=== PATIENT | female | born 1995 | race Caucasian/White ===

== ENCOUNTER 2020-07-05 17:43 | Emergency (ER) | payer SELFPAY ==
--- NOTE | 2020-07-05 17:47 | W.ED.GENAD ---
Discharge Plan Disposition Patient Disposition: HOME Condition: Stable Discharge Details Chief Complaint: DentalOral Clinical Impression: Pain, dental, Broken tooth, Dental infection Primary Care Provider: None,None ED Provider: Scarlett Lazaro Home Meds and New Rx's Prescriptions: New penicillin V potassium 500 mg tablet 500 mg PO QID 7 Days Qty: 28 RF: 0 tramadol 50 mg tablet 50 mg PO TID PRN (Reason: pain) Qty: 10 RF: 0 Continued Implanon 1 unit SQ RF: 0 Discharge Instructions Instructions: Toothache (ED) Additional Instructions: Drink plenty of fluids and get plenty of rest. Alternate tylenol and motrin as needed and directed for pain. Take tramadol for pain not relieved with Tylenol or Motrin. Take antibiotics until finished. Call a dentist on Wednesday morning to schedule a follow-up appointment for reevaluation. Return to the emergency department if you develop any worsening or new concerning symptoms such as fever, increased pain, swelling. Discharge Data Discharge Date/Time-TO BE ENTERED AT DEPARTURE: 07/05/20 18:20 Discharge Physician: Scarlett Lazaro Medical Decision Making 24-year-old female with history of fracture to tooth #16 presents with left upper dental pain for the past month, worse over the past few days and specifically since last night. Tooth #16 has a hole on buccal wall aspect. There appears to be minimal signs of surrounding inflammation versus infection but no evidence of abscess. She appears nontoxic. There is no drooling, trismus, submandibular swelling. Will treat with penicillin and tramadol as patient appears uncomfortable. Patient was searched through the [place] prescription monitoring program and no recent narcotic prescriptions. Case was also discussed with poison control who stated that patient was well under the toxic dose of 13g as she took approximately 1900 mg today. Toxic effects are not any significant serious concerns and mainly include GI upset, vomiting abdominal pain. No other acute recommendations at this time and patient is cleared for discharge. Patient was advised on the importance of following dosing instructions for Motrin or Aleve and to alternate with Tylenol. She was given dental follow-up list. Usual and customary return precautions given prior to discharge. Medical Records Medical records reviewed: Yes I reviewed the patient's medical records. HPI General Mode of arrival: ambulatory. Date/Time Provider Initiated Documentation: 07/05/20 17:46. Limitations to Documentation: no limitations. Information obtained by: patient. HPI Narrative: Patient is a 24-year-old female who presents to the ED with complaint of left upper tooth pain for the past week, worse since last night. Patient states she broke her left upper wisdom tooth last year and has had intermittent pain but much worse over the past several days and much more significantly worse since last night. She is now having pain radiating from the left mid face up to her TMJ. She denies any known fever. She states she took 9 tabs of 220 mg Aleve within a 9-hour period today. She states she did not do this with any intent to harm but for her pain control. She states she did not think to take any Tylenol. She states 5 days ago she also took 10 tabs of 220 mg Aleve within a 24-hour period and vomited once but denies any abdominal pain or vomiting since then. Related Data Home Medications Medication Instructions Recorded Confirmed Implanon 1 unit SQ 10/11/15 10/11/15 penicillin V potassium 500 mg PO QID 7 Days #28 tab 07/05/20 tramadol 50 mg PO TID PRN #10 tab 07/05/20 Previous Rx's Medication Instructions Recorded penicillin V potassium 500 mg PO QID 7 Days #28 tab 07/05/20 tramadol 50 mg PO TID PRN #10 tab 07/05/20 Allergies Allergy/AdvReac Type Severity Reaction Status Date / Time No Known Allergies Allergy Unverified 07/05/20 17:54 Review of Systems All systems reviewed & are unremarkable except as noted in HPI and below Constitutional Constitutional: Reports as per HPI, Denies chills and Denies fever(s) Eyes Eyes: Denies blurry vision ENT Ears, Nose, Mouth, and Throat: Reports dental pain, Denies dizziness, Denies sore throat and Denies throat swelling Cardiovascular Cardiovascular: Denies chest pain and Denies dyspnea Respiratory Respiratory: Denies cough and Denies dyspnea Gastrointestinal Gastrointestinal: Denies abdominal pain, Denies diarrhea and Denies vomiting Genitourinary Genitourinary: Denies hematuria and Denies dysuria Musculoskeletal Musculoskeletal: Denies back pain and Denies numbness Integumentary/Breasts Skin/Breast: Denies lesions and Denies rash Neurologic Neurologic: Denies dizziness, Denies localized weakness and Denies numbness Allergic/Immunologic Allergic/Immunologic: Denies throat swelling [facility] Medical History (Updated 07/05/20 @ 18:09 by Scarlett Lazaro DO) No acute medical problems (Acute) Surgical History (Updated 07/05/20 @ 18:16 by Scarlett Lazaro DO) No significant past surgical history (Acute) Family History Mother Asthma ? uses inhaler, is a smoker Grandmother , stroke at age 73. No problems noted. Social History Smoking/Tobacco Use Status: Current every day Tobacco Type: cigarettes Alcohol Intake: current Alcohol Intake frequency: a few times a month Drug use: Daily Substance use type: marijuana Do you feel safe at home: Yes Do you feel safe in your relationship?: Yes Exam Const General: cooperative, healthy appearing and no acute distress HENMT Head: normal to inspection Ears: hearing grossly normal bilaterally, external ears normal and TM's normal bilaterally General nose exam: external nose normal Face images: 1. Tenderness to palpation of left side of face. There is minimal surrounding edema but no erythema, crepitus, fluctuance or induration. Mouth: oral mucosae normal Teeth image: 1. #16 Tooth broken on buccal wall aspect. There is minimal surrounding erythema and edema but no fluctuance, drainage or bleeding. There is no tenderness to palpation of this tooth. Throat: posterior oropharynx normal Eyes General: appearance normal, both eyes and all related structures Neck Neck: normal visual inspection, full ROM, no lymphadenopathy, trachea midline and supple Resp Effort & Inspection: normal respiratory effort and able to speak in complete sentences Cardio Rate: regular rate Skin General skin exam: no rashes or lesions noted Neuro General: patient alert, patient awake and patient oriented x3 Motor: muscle tone normal throughout Extrem General: normal to inspection and full ROM Psych Appearance: grossly normal Affect: normal affect
[2020-07-05 17:48] VITALS: BP 145/86; PULSE 89; RESP 15; TEMP 37.2; O2SAT 100
--- NOTE | 2020-07-05 17:56 | NUR.NOTE ---
pt has implanon - states two years overdue for removal
[2020-07-05] MEDS: Penicillin V POTASSIUM 500 MG TAB, 4 TABS/BTL PO (18:15)
[2020-07-05] MEDS: Penicillin V POTASSIUM 500 MG TAB PO (18:16)
== END 2020-07-05 18:20 | disposition home or self-care (01) ==
PROVIDERS: Emergency Provider Physician Assistant
DX: K03.81 Cracked tooth (principal); K08.89 Other specified disorders of teeth and supporting structures; K04.7 Periapical abscess without sinus
CPT/HCPCS: 99283

== ENCOUNTER 2023-09-20 20:46 | Outpatient (CLI) | payer OTHER, SELFPAY ==
[2023-09-20 16:13] LABS: Abs Immature Grans 0.02 10^3/uL (0.0-0.06); Absolute Basophil Count 0.03 10^3/uL (0.0-0.2); Absolute Eosinophil Count 0.08 10^3/uL (0.0-0.7); Absolute Lymphocyte Count 1.99 10^3/uL (1.2-3.4); Absolute Monocyte Count 0.65 10^3/uL (0.1-0.8); Absolute Neutrophil Count 6.04 10^3/uL (1.2-6.7); Basophils % 0.3; Eosinophils % 0.9; HGB 13.8 g/dL (11.2-15.7); Immature Grans % 0.2; Lymphocytes % 22.6; MCH 30.6 pg (27.0-33.0); MCHC 34.5 % (32.0-36.0); MCV 89 fL (80-95); MPV 9.6 fL (8.0-11.0); Monocytes % 7.4; Neutrophils % 68.6; Platelet Count 172 10^3/uL (130-400); RBC 4.51 10^6/uL (3.93-5.22); RDW 12.4 % (11.7-14.6); RDW-SD 40.3 fL; WBC 8.81 10^3/uL (4.4-10.8)
[2023-09-20 16:30] LABS: PTT Activated 26.2 sec (23.6-32.8); Prothrombin Time 9.9 sec (9.1-11.1)
[2023-09-20 17:15] LABS: TSH 1.94 uIU/mL (0.36-3.74)
== END 2023-09-20 20:47 | disposition home or self-care (01) ==
LOC: LBO 20:46
PROVIDERS: Visit Provider Physician Assistant
DX: N93.9 Abnormal uterine and vaginal bleeding, unspecified (principal)
CPT/HCPCS: 36415; 84443; 85025; 85610; 85730

== ENCOUNTER 2023-09-23 12:13 | Outpatient (CLI) | payer OTHER, SELFPAY ==
[2023-09-23 11:57] LABS: HCG Quant, Pregnancy 314 mIU/mL (1-3)
== END 2023-09-23 12:14 | disposition home or self-care (01) ==
LOC: LBO 12:13
PROVIDERS: Visit Provider Obstetrics & Gynecology Gynecology
DX: N93.9 Abnormal uterine and vaginal bleeding, unspecified (principal); Z32.01 Encounter for pregnancy test, result positive
CPT/HCPCS: 36415; 86900; 86901; 84702

== ENCOUNTER 2023-09-28 03:14 | Outpatient (CLI) | payer OTHER, SELFPAY ==
[2023-09-28 12:41] LABS: HCG Quant, Pregnancy 185 mIU/mL (1-3)
== END 2023-09-28 03:15 | disposition home or self-care (01) ==
LOC: LBO 03:15
PROVIDERS: Visit Provider Obstetrics & Gynecology Gynecology
DX: Z32.01 Encounter for pregnancy test, result positive (principal)
CPT/HCPCS: 36415; 84702

== ENCOUNTER 2023-12-31 18:04 | Emergency (ER) | payer OTHER, SELFPAY ==
[2023-12-31 18:29] VITALS: BP 114/76; PULSE 76; RESP 12; TEMP 37.1; O2SAT 98
--- NOTE | 2023-12-31 18:34 | W.ED.GENAD ---
HPI General Date/Time Provider Initiated Documentation: 12/31/23 18:32. HPI Narrative: 28 year-old female presents to ED today by POV/ambulating with her mother with a chief complaint of R upper dental pain with facial swelling with onset yesterday- she was playing with R upper molar with existing dental fracture when she broke it more and is now having increased swelling and pain. Quality described as throbbing, mostly in cheek, no radiation to trismus, severe vocal changes, inability to swallow or manage secretions, shortness of breath. Severity is described as 8/10. Palliating factors include has been taking Tylenol/NSAIDs. Provoking factors include nothing specific. Patient not anticoagulated. Related Data Home Medications Medication Instructions Recorded Confirmed Implanon 1 unit SQ 10/11/15 10/05/23 amoxicillin 875 mg-potassium 1 tab PO BID dental pain 10 days 12/31/23 clavulanate 125 mg tablet #20 tabs lidocaine HCl 2 % mucosal solution 1 applic mucous membrane QID PRN 12/31/23 dental pain #100 mL Previous Rx's Medication Instructions Recorded amoxicillin 875 mg-potassium 1 tab PO BID dental pain 10 days 12/31/23 clavulanate 125 mg tablet #20 tabs lidocaine HCl 2 % mucosal solution 1 applic mucous membrane QID PRN 12/31/23 dental pain #100 mL Allergies Allergy/AdvReac Type Severity Reaction Status Date / Time No Known Allergies Allergy Unverified 09/23/23 10:30 General KARINE: 4 Review of Systems All systems reviewed & are unremarkable except as noted in HPI and below Exam Narrative Exam Narrative: GENERAL APPEARANCE: Well-nourished, non-toxic, awake and alert, atraumatic, no acute distress. SKIN: Warm, pink, dry, intact, without rashes/lesions/ulcerations. HEAD: Normocephalic, atraumatic, normal hair distribution for gender/age. EYES: Pupils PERRLA, EOMs intact without nystagmus, normal conjunctiva, no exudates on lids/lashes. ENT: Nares patent, no circumoral cyanosis, no facial swelling, uvula midline, fractured R upper 3rd molar, no visible gingival abscess, no trismus, has + swelling and mild erythema to R cheek without fluctuance or cervantes erythema, no vocal changes NECK: Supple, trachea midline, painless cervical ROM. LUNGS/CHEST: Non-labored respirations, normal A/P diameter, symmetrical expansion, no chest wall deformity HEART (CV/PV): No peripheral edema, no JVD. ABDOMEN: Soft, non-distended, no guarding. MSK: Normal ROM, no swelling/deformity to bilateral UEs or LEs, moving all extremities without weakness, no cyanosis, spine midline without tenderness, normal curvature. NEURO: Mental Status AAOx4 - alert to person, place, time, events No facial droop, no forehead involvement. Motor: No focal weakness - strength 5/5 in bilateral UEs and LEs, proximal and distal, symmetric. Sensory: sensation intact to light touch globally. Gait normal: patient ambulated without ataxia into ED room. PSYCH: euthymic, cooperative, pleasant, appropriate speech Medical Decision Making This dictation utilizes [id number] dictation software and may contain unedited grammatical errors. 28 y/o F presents to ED today with a chief complaint of R upper dental pain acute on chronic with prior dental fracture, denies fever, endorses cheek swelling, no vocal changes, managing secretions well, no trismus. Patients' medical history: noncontributory. Family and social history: noncontributory. Pertinent exam findings / vital signs include ENT: Nares patent, no circumoral cyanosis, no facial swelling, uvula midline, fractured R upper 3rd molar, no visible gingival abscess, no trismus, has + swelling and mild erythema to R cheek without fluctuance or cervantes erythema, no vocal changes. Differential / pathologies of concern include ENT: Nares patent, no circumoral cyanosis, no facial swelling, uvula midline, fractured R upper 3rd molar, no visible gingival abscess, no trismus, has + swelling and mild erythema to R cheek without fluctuance or cervantes erythema, no vocal changes. Diagnostic studies of: -none. Interventions of: -outpatient Rx Augmentin, pain control here & short supply hydrocodone 4 tab to-go, outpatient viscous lidocaine. ED Course/Assessment/Plan: 28-year-old female had an existing right upper molar dental fracture that she exacerbated and is now having increasing swelling in the cheek especially today, likely in the setting of early dental or gingival or soft tissue infection, started Augmentin here tonight and recommend she use viscous lidocaine by prescription, therapeutic dosing Tylenol and ibuprofen and urgent dental follow-up, stressed return criteria for trismus or severe vocal changes or worsening despite treatment. Findings not consistent with trismus, airway compromise, toxic presentation. Disposition of Pain due to dental trauma. Patient verbalized understanding of the plan and return to ED criteria and engaged in shared decision making. Medical Records Medical records reviewed: Yes I reviewed the patient's medical records. Quality:[facility] Health Related Social Needs: No Data to Display PFSH All Active Problems (Updated 12/31/23 @ 18:35 by JEFFERY Mills) Pain due to dental trauma (Acute) test positive (Acute) Abnormal uterine bleeding (AUB) (Acute) Medical History No acute medical problems Surgical History No significant past surgical history Family History Mother Asthma ? uses inhaler, is a smoker Grandmother , stroke at age 73. No problems noted. Social History Smoking/Tobacco Use Status: Current every day Tobacco Type: cigarettes Smoking risk assessment performed?: Yes Alcohol Intake: current Alcohol Intake frequency: a few times a month Drug use: Daily Substance use type: marijuana Do you feel safe at home: Yes Do you feel safe in your relationship?: Yes Discharge Plan Disposition Patient Disposition: Home Condition: Stable Discharge Details Clinical Impression: Pain due to dental trauma Primary Care Provider: Unknown,Unknown ED Provider: Zoltan Duggan Home Meds and New Rx's Prescriptions: New amoxicillin-pot clavulanate 875-125 mg tablet 1 tab PO BID 10 Days Qty: 20 0RF lidocaine HCl 2 % solution 1 applic mucous membrane QID PRN (Reason: dental pain) Qty: 100 0RF Rx Instructions: swish and spit with 10mL by mouth four times per day as needed Continued Implanon 1 unit SQ Discharge Instructions Instructions: Amoxicillin/Clavulanate Potassium (By mouth), Lidocaine (Into the mouth), Toothache (ED) Additional Instructions: You were seen in the emergency department for your acute dental pain with likely developing soft tissue infection of the gums or cheek. We are starting you on an antibiotic called Augmentin for this, it was sent to [facility] in [place], take as directed, I have also sent a prescription for viscous lidocaine to swish and spit prior to meals to aid in nutrition and hydration as well as before bed. Continue your salt water gargles 3 times per day. I sent you home with 4 tablets of hydrocodone with 325 mg of Tylenol combined in them, use these for the first day for breakthrough pain that regular Tylenol and anti-inflammatories are not covering. Please use therapeutic dosing of Tylenol (acetamenophen) & Advil (ibuprofen) in an alternating fashion as follows: Take 1000mg of Tylenol every 6 hours without missing doses- that is 4 times per day. Fci in between the Tylenol dosings, take 400-600mg of Advil also on a 6 hour schedule, that is also 4 times per day. The daily maximum dosing of Tylenol is 4000mg, and the daily maximum dosing of Advil is 2400mg. This is safe to do for weeks. Please note that some common cold medications & prescription pain medications may contain acetamenophen and you need to read OTC drug labels and factor that in to maximum daily dosings. Please seek urgent dental follow-up, return for any inability to range your jaw, increasing facial swelling despite treatment, fever, inability to swallow, severe vocal changes. Referrals: [facility] [Provider Group] Discharge Data Discharge Date/Time-TO BE ENTERED AT DEPARTURE: 12/31/23 18:57
[2023-12-31 18:37] VITALS: BP 114/76; PULSE 72; RESP 12; O2SAT 99
[2023-12-31] MEDS: Acetaminophen 500 MG TAB 1000 MG PO (18:44)
[2023-12-31] MEDS: Ketorolac 10 MG TAB PO (18:44)
[2023-12-31] MEDS: Amoxicillin 875/Clav. 125 TAB PO (18:45)
[2023-12-31] MEDS: oxyCODONE 5 MG TAB PO (18:46)
[2023-12-31 18:49] VITALS: BP 148/91; PULSE 74; RESP 14; O2SAT 98
== END 2023-12-31 18:57 | disposition home or self-care (01) ==
PROVIDERS: Emergency Provider Physician Assistant
DX: R68.84 Jaw pain (principal); S09.93XA Unspecified injury of face, initial encounter; K03.81 Cracked tooth; I10 Essential (primary) hypertension; W22.8XXA Striking against or struck by other objects, initial encounter
CPT/HCPCS: 99283

== ENCOUNTER 2024-03-06 12:13 | Emergency (ER) | payer OTHER, SELFPAY ==
[2024-03-06] VITALS (43 sets, daily range): BP systolic 82–179; BP diastolic 55–94; PULSE 62–108; RESP 9–29; O2SAT 95–100
[2024-03-06 13:27] LABS: Abs Immature Grans 0.03 10^3/uL (0.0-0.06); Absolute Basophil Count 0.01 10^3/uL (0.0-0.2); Absolute Lymphocyte Count 1.03 10^3/uL (1.2-3.4); Absolute Monocyte Count 0.42 10^3/uL (0.1-0.8); Absolute Neutrophil Count 9.54 10^3/uL (1.2-6.7); Basophils % 0.1; HCT 41.9 % (36.0-46.0); HGB 14.4 g/dL (11.2-15.7); Immature Grans % 0.3; Lymphocytes % 9.3; MCH 30.1 pg (27.0-33.0); MCHC 34.4 % (32.0-36.0); MCV 88 fL (80-95); MPV 9.4 fL (8.0-11.0); Monocytes % 3.8; Neutrophils % 86.5; Platelet Count 227 10^3/uL (130-400); RBC 4.78 10^6/uL (3.93-5.22); RDW 12.6 % (11.7-14.6); RDW-SD 40.7 fL; WBC 11.03 10^3/uL (4.4-10.8)
[2024-03-06] MEDS: diphenhydrAMINE 50 MG/ML VIAL 25 MG IVP (13:32)
[2024-03-06] MEDS: Metoclopramide 10 MG/2 ML VIAL IVP (13:33)
[2024-03-06] MEDS: Lactated Ringers 1,000 ML 1000 ML IV (13:38)
[2024-03-06 13:49] LABS: ALT 24 U/L (14-59); AST 13 U/L (15-37); Albumin 4.1 g/dL (3.4-5.0); Alkaline Phosphatase 65 U/L (46-116); Anion Gap 13.9 mmol/L (3-11); BUN 6 mg/dL (7-18); Bilirubin, Total 0.5 mg/dL (0.2-1.0); CO2 23.1 mmol/L (21.0-32.0); CREATININE 0.8 mg/dL (0.55-1.02); Calcium 9.5 mg/dL (8.5-10.1); Chloride 100 mmol/L (98-107); Estimated GFR 102.22 (mL/min/1.73m2); Glucose 108 mg/dL (74-106); Magnesium 1.6 mg/dL (1.8-2.4); Potassium 3.6 mmol/L (3.5-5.1); Sodium 137 mmol/L (136-145); Total Protein 8.3 g/dL (6.4-8.2)
[2024-03-06 14:26] LABS: Bilirubin Small (Negative); Blood Negative (Negative); Clarity Clear (Clear); Glucose Negative (Negative); Ketones >=160 mg/dL (Negative); Leukocyte Esterase Negative (Negative); Nitrite Negative (Negative); Specific Gravity 1.025 (1.005-1.025)
--- NOTE | 2024-03-06 14:46 | ED.GENADUL_ITS ---
Discharge Plan Disposition Patient Disposition: Home Condition: Stable Discharge Details Clinical Impression: Metabolic acidosis, increased anion gap, Nausea and vomiting during prior to 22 weeks gestation, Hypomagnesemia Primary Care Provider: Unknown,Unknown ED Provider: Law Munoz Home Meds and New Rx's Prescriptions: New PNV #[id number] 30 mg iron-10 mg iron-1 mg capsule 1 cap PO BID Qty: 90 0RF doxylamine-pyridoxine (vit B6) [Diclegis] 10-10 mg tablet,delayed release (DR/EC) 1 tab PO DAILY Qty: 30 0RF Discharge Instructions Instructions: Hyperemesis Gravidarum (ED), Hypomagnesemia (ED) Additional Instructions: Please drink small amounts of clear fluid frequently in order to stay hydrated. Please contact your OB to arrange follow-up. Call today. Return to the ER immediately for any worsening or new concerning symptoms. Referrals: [facility] [Outside] HPI General Mode of arrival: ambulatory . Date/Time Provider Initiated Documentation: 03/06/24 13:13 . Limitations to Documentation: no limitations . Information obtained by: patient . HPI Narrative: 28-year-old female -0-1-0 at unknown dating, last menstrual period 01/24- , here with chief complaint of nausea and vomiting. Patient notes intractable nausea and vomiting for the past 3 days. She not able to tolerate any oral intake. Symptoms are severe. No modifiers. She has not tried any antiemetics. Patient notes recently found out she was and thinks she may be 6 weeks. Patient does have diffuse abdominal discomfort from excessive vomiting. Related Data Home Medications Medication Instructions Recorded Confirmed doxylamine 10 mg-pyridoxine (vit 1 tab PO DAILY #30 tabs 03/06/24 B6) 10 mg tablet,delayed release (Diclegis) vitamin#30 30 mg iron-10 1 cap PO BID #90 caps 03/06/24 mg iron-folic acid 1 mg-omg3 capsule Previous Rx's Medication Instructions Recorded doxylamine 10 mg-pyridoxine (vit 1 tab PO DAILY #30 tabs 03/06/24 B6) 10 mg tablet,delayed release (Diclegis) vitamin#30 30 mg iron-10 1 cap PO BID #90 caps 03/06/24 mg iron-folic acid 1 mg-omg3 capsule Allergies Allergy/AdvReac Type Severity Reaction Status Date / Time No Known Allergies Allergy Unverified 09/23/23 10:30 General Stated Complaint: Nausea/Vomit/Diar KARINE: 3 Review of Systems All systems reviewed & are unremarkable except as noted in HPI and below Constitutional Constitutional: Denies fever(s) Gastrointestinal Gastrointestinal: Reports as per HPI Exam Const General: cooperative and no acute distress HENMT Mouth: mucous membranes dry Eyes Conjunctivae: normal conjunctivae Sclera: normal sclerae Resp Auscultation: clear to auscultation bilaterally, no rales, no rhonchi and no wheezes Cardio Rate: tachycardic Rhythm: regular rhythm GI Palpation: soft, not firm, no guarding, no masses, not rigid and tender (diffuse mild) Skin General skin exam: no rashes or lesions noted Neuro General: patient alert, patient awake and tone normal Extrem General: no edema Course Vital Signs Vital signs: Vital Signs Pulse 104 H 03/06/24 12:30 Respiratory Rate 24 03/06/24 12:30 Blood Pressure 126/75 03/06/24 12:30 Pulse Oximetry 100 03/06/24 12:30 Temperature Source Tympanic 03/06/24 12:30 Pulse 90 03/06/24 13:40 Respiratory Rate 18 03/06/24 13:40 Respiratory Effort Normal, Non-Labored 03/06/24 13:40 Blood Pressure 112/55 L 03/06/24 13:40 Blood Pressure Position Supine 03/06/24 13:40 Pulse Oximetry 99 03/06/24 13:40 Oxygen Delivery Method Room Air 03/06/24 13:40 Oxygen Flow Rate 0 03/06/24 12:30 Pain Level 3 03/06/24 12:30 Lab/Test Results Lab/Test Results: Laboratory Tests Range/Units 03/06/24 03/06/24 13:20 14:15 WBC (4.4-10.8) 10^3/uL 11.03 H RBC (3.93-5.22) 10^6/uL 4.78 Hgb (11.2-15.7) g/dL 14.4 Hct (36.0-46.0) % 41.9 MCV (80-95) fL 88 MCH (27.0-33.0) pg 30.1 MCHC (32.0-36.0) % 34.4 RDW (11.7-14.6) % 12.6 Plt Count (130-400) 10^3/uL 227 MPV (8.0-11.0) fL 9.4 Immature Gran % 0.3 Neutrophils % 86.5 Lymphocytes % 9.3 Monocytes % 3.8 Eosinophils % 0.0 Basophils % 0.1 Nucleated RBC % (0.0-0.3) % 0.0 Absolute Neutrophils (1.2-6.7) 10^3/uL 9.54 H Absolute Lymphocytes (1.2-3.4) 10^3/uL 1.03 L Absolute Monocytes (0.1-0.8) 10^3/uL 0.42 Absolute Eosinophils (0.0-0.7) 10^3/uL 0.00 Absolute Basophils (0.0-0.2) 10^3/uL 0.01 Sodium (136-145) mmol/L 137 Potassium (3.5-5.1) mmol/L 3.6 Chloride (98-107) mmol/L 100 Carbon Dioxide (21.0-32.0) mmol/L 23.1 Anion Gap (3-11) mmol/L 13.9 H BUN (7-18) mg/dL 6 L Creatinine (0.55-1.02) mg/dL 0.8 Est GFR (CKD-EPI 2020) (mL/min/1.73m2) 102.22 Glucose (74-106) mg/dL 108 H Calcium (8.5-10.1) mg/dL 9.5 Magnesium (1.8-2.4) mg/dL 1.6 L Total Bilirubin (0.2-1.0) mg/dL 0.5 AST (15-37) U/L 13 L ALT (14-59) U/L 24 Alkaline Phosphatase (46-116) U/L 65 Total Protein (6.4-8.2) g/dL 8.3 H Albumin (3.4-5.0) g/dL 4.1 Urine Color (Yellow) Yellow Urine Clarity (Clear) Clear Urine pH (5-8) 7.0 Ur Specific [place] (1.005-1.025) 1.025 Urine Protein (Neg-Trace) mg/dL 100 H Urine Ketones (Negative) mg/dL >=160 H Urine Blood (Negative) Negative Urine Nitrite (Negative) Negative Urine Bilirubin (Negative) Small H Urine Urobilinogen (Up to 0.2) mg/dL 1.0 H Ur Leukocyte Esterase (Negative) Negative Urine Glucose (Negative) mg/dL Negative Medical Decision Making 28-year-old -0-1-0 6 weeks by dating, here with intractable nausea and vomiting for the past 3 days. Patient does have diffuse mild abdominal tenderness I suspect secondary to intractable vomiting. Patient is tachycardic and appears dehydrated. I will give IV fluid bolus and IV antiemetic metoclopramide and diphenhydramine. Initial labs reviewed and patient does have mild anion gap acidosis suspect secondary to starvation ketosis. She also has hypomagnesemia. I will give magnesium 1 g IV. 1635 --Patient reassessed: Feeling much improved. Tolerating oral intake. She does have some dyspepsia and request Tums which has helped in the past. Plan for discharge with outpatient follow-up with safety teacher. Usual customary discharge instructions were reviewed. Lab Data Lab results reviewed: Yes I reviewed the patient's lab results. Labs: Laboratory Tests Range/Units 03/06/24 03/06/24 13:20 14:15 WBC (4.4-10.8) 10^3/uL 11.03 H RBC (3.93-5.22) 10^6/uL 4.78 Hgb (11.2-15.7) g/dL 14.4 Hct (36.0-46.0) % 41.9 MCV (80-95) fL 88 MCH (27.0-33.0) pg 30.1 MCHC (32.0-36.0) % 34.4 RDW (11.7-14.6) % 12.6 Plt Count (130-400) 10^3/uL 227 MPV (8.0-11.0) fL 9.4 Immature Gran % 0.3 Neutrophils % 86.5 Lymphocytes % 9.3 Monocytes % 3.8 Eosinophils % 0.0 Basophils % 0.1 Nucleated RBC % (0.0-0.3) % 0.0 Absolute Neutrophils (1.2-6.7) 10^3/uL 9.54 H Absolute Lymphocytes (1.2-3.4) 10^3/uL 1.03 L Absolute Monocytes (0.1-0.8) 10^3/uL 0.42 Absolute Eosinophils (0.0-0.7) 10^3/uL 0.00 Absolute Basophils (0.0-0.2) 10^3/uL 0.01 Sodium (136-145) mmol/L 137 Potassium (3.5-5.1) mmol/L 3.6 Chloride (98-107) mmol/L 100 Carbon Dioxide (21.0-32.0) mmol/L 23.1 Anion Gap (3-11) mmol/L 13.9 H BUN (7-18) mg/dL 6 L Creatinine (0.55-1.02) mg/dL 0.8 Est GFR (CKD-EPI 2020) (mL/min/1.73m2) 102.22 Glucose (74-106) mg/dL 108 H Calcium (8.5-10.1) mg/dL 9.5 Magnesium (1.8-2.4) mg/dL 1.6 L Total Bilirubin (0.2-1.0) mg/dL 0.5 AST (15-37) U/L 13 L ALT (14-59) U/L 24 Alkaline Phosphatase (46-116) U/L 65 Total Protein (6.4-8.2) g/dL 8.3 H Albumin (3.4-5.0) g/dL 4.1 Urine Color (Yellow) Yellow Urine Clarity (Clear) Clear Urine pH (5-8) 7.0 Ur Specific [place] (1.005-1.025) 1.025 Urine Protein (Neg-Trace) mg/dL 100 H Urine Ketones (Negative) mg/dL >=160 H Urine Blood (Negative) Negative Urine Nitrite (Negative) Negative Urine Bilirubin (Negative) Small H Urine Urobilinogen (Up to 0.2) mg/dL 1.0 H Ur Leukocyte Esterase (Negative) Negative Urine RBC (0-2) HPF 0-2 Urine WBC (0-5) HPF 0-2 Ur Epithelial Cells (Negative) HPF Moderate Urine Crystals (Negative) HPF Negative Urine Bacteria (Negative) HPF Rare Urine Casts (Negative) LPF Negative Urine Mucus (Negative) Heavy Urine Other (Negative) Rare Transitional Ur Culture Indicated? No Urine Glucose (Negative) mg/dL Negative Quality:SDOH Health Related Social Needs: No Data to Display PFSH All Active Problems (Updated 03/06/24 @ 16:22 by Law Munoz MD) Hypomagnesemia (Acute) Nausea and vomiting during prior to 22 weeks gestation (Acute) Metabolic acidosis, increased anion gap (Acute) test positive (Acute) Abnormal uterine bleeding (AUB) (Acute) Medical History No acute medical problems Surgical History No significant past surgical history Family History Mother Asthma ? uses inhaler, is a smoker Grandmother , stroke at age 73. No problems noted. Social History Smoking/Tobacco Use Status: Current every day Tobacco Type: cigarettes Smoking risk assessment performed?: Yes Alcohol Intake: current Alcohol Intake frequency: a few times a month Drug use: Daily Substance use type: marijuana Housing: house Do you feel safe at home: Yes Do you feel safe in your relationship?: Yes
[2024-03-06 14:49] LABS: Bacteria Rare HPF (Negative); C & S Indicated? No; Casts Negative LPF (Negative); Crystals Negative HPF (Negative); Epithelial Cells Moderate HPF (Negative); Mucus Heavy (Negative); Other Cells Rare Transitional (Negative); RBC 0-2 HPF (0-2); WBC 0-2 HPF (0-5)
[2024-03-06] MEDS: MAGNESIUM SULFATE 1 GM/100 ML BAG IVINF (14:57)
[2024-03-06] MEDS: DEXTROSE 5%-0.9% SALINE 1,000 ML 150 ML IV (15:47)
[2024-03-06] MEDS: Calcium Carbonate *TUMS* 500 MG CHEW 1000 MG PO (16:34)
== END 2024-03-06 17:21 | disposition home or self-care (01) ==
PROVIDERS: Emergency Provider Student in an Organized Health Care Education/Training Program
DX: O21.1 Hyperemesis gravidarum with metabolic disturbance (principal); O26.891 Other specified pregnancy related conditions, first trimester; R81 Glycosuria; O99.331 Smoking (tobacco) complicating pregnancy, first trimester; F17.290 Nicotine dependence, other tobacco product, uncomplicated
CPT/HCPCS: 80053; 96361; 96365; 96375; 99284; 81003; 81015; 83735; 85025; J1200; J2765; J3475; J7042

== ENCOUNTER 2024-03-07 10:19 | Emergency (ER) | payer OTHER, SELFPAY ==
--- NOTE | 2024-03-07 10:20 | ED.GENADUL_ITS ---
Discharge Plan Disposition Patient Disposition: Home Discharge Details Clinical Impression: Hypomagnesemia, Nausea and vomiting during prior to 22 weeks gestation, Glucosuria, Hypokalemia Primary Care Provider: Unknown,Unknown ED Provider: Jaya Betancur Home Meds and New Rx's Prescriptions: New doxylamine-pyridoxine (vit B6) [Diclegis] 10-10 mg tablet,delayed release (DR/EC) 1 tab PO BID Qty: 14 0RF No Action PNV #[id number] 30 mg iron-10 mg iron-1 mg capsule 1 cap PO BID Qty: 90 0RF doxylamine-pyridoxine (vit B6) [Diclegis] 10-10 mg tablet,delayed release (DR/EC) 1 tab PO DAILY Qty: 30 0RF Discharge Instructions Additional Instructions: You were seen in the emergency department for your nausea and vomiting. A prescription for nausea medicine has been sent to the [facility] and then developed. Please take this as directed. Please return to the emergency department if you cannot eat or drink as result of nausea or vomiting, if you develop any vaginal bleeding, or if you have any other concerns. Otherwise please follow-up with your cardiology clinical nurse specialist next week. Discharge Data Discharge Date/Time-TO BE ENTERED AT DEPARTURE: 03/07/24 13:45 HPI General Date/Time Provider Initiated Documentation: 03/07/24 10:20 . HPI Narrative: MDM This is an uncomfortable mildly tachycardic but normothermic 28-year-old at approximately 6 weeks with nausea and vomiting unable to obtain outpatient antiemetics concerning for hyperemesis gravidarum for which patient will receive labs to assess for any acute electrolyte abnormalities. No pain out of proportion to suggest necrotizing soft tissue infection. I ordered a separate urine culture however the sample was contaminated so it was not run. Given no dysuria no frequency will defer urine culture. No vaginal bleeding to suggest increased risk for ectopic . Transabdominal pelvic ultrasound showed no definitive intrauterine . In the absence of any vaginal bleeding and abdominal pain I did not feel that the patient required an emergent transvaginal ultrasound to assess for intrauterine . Patient does have OB follow-up in [place]. No right lower quadrant tenderness to suggest appendicitis. No right upper quadrant tenderness to suggest acute cholecystitis. No left lower quadrant tenderness nor diarrhea so my suspicion is low for diverticulitis. No rash to abdomen to suggest zoster.Will prescribe doxylamine to [facility] as patient is unable to obtain this from [facility]. 10:52 AM CBC shows leukocytosis but no anemia. No thrombocytopenia. Urinalysis showing persistent ketonuria. Urinalysis glucosuria for which patient will receive D5 NS. 11:07 AM Basic metabolic panel showing anion gap but only mild hyperglycemia and normal bicarbonate??not consistent with DKA. Normal renal function. Mild hypomagnesemia improved compared to prior. 11:15 AM Patient was found to be markedly hypokalemic with a serum potassium of 2.6. Will obtain ECG to assess for QTc prolongation and well provide both oral and IV potassium. 11:52 AM Patient was still feeling nauseous for which I treated her with 25 mg of pyridoxine. QTc was within normal limits on ECG. 1:30 PM Patient tolerated p.o. in the ED. Her tachycardia resolved. Given that she was tolerating p.o. did not feel that she required a repeat basic metabolic panel as she is not at risk for ongoing potassium loss. I wrote her for a course of Diclegis as she was unable to get this from the [facility]. I sent this second prescription to the [facility]. I encouraged her to follow-up with her [employer] provider and return to the emergency department if she cannot eat or drink as result of nausea or vomiting or if she developed any vaginal bleeding. Patient understood her return indications and she was discharged with an empiric trial of expectant outpatient management. Chronic conditions affecting the care of the patient: N/A History obtained from an outside historian: N/A External record review: [facility] EMR [Diagnostic interpretations performed by me: Per my independent interpretation EKG shows: normal sinus rhythm at a rate of 64. Normal axis. Intervals within normal limits. Interventricular conduction delay. No prior for comparison. T wave inversion in V3. ]Medications: Metoclopramide & pyridoxine Social determinants of health affecting disposition: N/A Management discussed with: N/A Treatment/interventions considered: N/A Response to therapies provided: Improved symptoms in the ED HPI This is a 28-year-old G2, P0 at approximately 6 weeks arrived to the emergency department via private vehicle in the setting of nausea and vomiting. Patient reports that the drugstore unfortunately did not have the antiemetics that were prescribed yesterday. Patient reports that she was able to tolerate some popsicles yesterday evening but began vomiting at 830 or 9 yesterday evening. She has been vomiting numerous times subsequently. She is not having abdominal pain. She denies any dysuria frequency. No vaginal bleeding. Exam General: Well-appearing in no acute distress speaking in complete sentences. Head: Normocephalic, atraumatic. Eye: Extraocular eye movements intact. No conjunctival injection. No scleral icterus. Ear, nose, mouth, throat: Grossly normal inspection. Normal voice, handling secretions normally. Neck: Trachea midline. Cardiovascular: Well-perfused distal extremities. Regular rate and rhythm. Respiratory: Nonlabored respiration. Clear lungs bilaterally. Gastrointestinal: Nondistended abdomen. Soft. Nontender. Musculoskeletal: No edema. Moving all 4 extremities spontaneously. Skin: Normal for age and race, grossly normal temperature and turgor. No acute rash. Neurologic: Alert and appropriate, no apparent acute deficits. Psychiatric: Mood and manner are appropriate. Grooming and personal hygiene are appropriate. Related Data Home Medications Medication Instructions Recorded Confirmed doxylamine 10 mg-pyridoxine (vit 1 tab PO DAILY #30 tabs 03/06/24 03/07/24 B6) 10 mg tablet,delayed release (Diclegis) vitamin#30 30 mg iron-10 1 cap PO BID #90 caps 03/06/24 03/07/24 mg iron-folic acid 1 mg-omg3 capsule doxylamine 10 mg-pyridoxine (vit 1 tab PO BID #14 tabs 03/07/24 B6) 10 mg tablet,delayed release (Diclegis) Previous Rx's Medication Instructions Recorded doxylamine 10 mg-pyridoxine (vit 1 tab PO DAILY #30 tabs 03/06/24 B6) 10 mg tablet,delayed release (Diclegis) vitamin#30 30 mg iron-10 1 cap PO BID #90 caps 03/06/24 mg iron-folic acid 1 mg-omg3 capsule doxylamine 10 mg-pyridoxine (vit 1 tab PO BID #14 tabs 03/07/24 B6) 10 mg tablet,delayed release (Diclegis) Allergies Allergy/AdvReac Type Severity Reaction Status Date / Time No Known Allergies Allergy Unverified 03/07/24 11:33 General KARINE: 3 Medical Decision Making Quality:SDOH Health Related Social Needs: No Data to Display PFSH All Active Problems (Updated 03/07/24 @ 11:16 by Jaya Betancur MD) Hypokalemia (Acute) Glucosuria (Acute) Hypomagnesemia (Acute) Nausea and vomiting during prior to 22 weeks gestation (Acute) Metabolic acidosis, increased anion gap (Acute) test positive (Acute) Abnormal uterine bleeding (AUB) (Acute) Medical History No acute medical problems Surgical History No significant past surgical history Family History Mother Asthma ? uses inhaler, is a smoker Grandmother , stroke at age 73. No problems noted. Social History Smoking/Tobacco Use Status: Current every day Tobacco Type: cigarettes Smoking risk assessment performed?: Yes Alcohol Intake: current Alcohol Intake frequency: a few times a month Drug use: Daily Substance use type: marijuana Housing: house Do you feel safe at home: Yes Do you feel safe in your relationship?: Yes POCUS Exam (ED) Limited OB Exam DATE OF EXAM:: 03/07/24 TIME OF EXAM:: 10:56 PROVIDER THAT PERFORMED THE STUDY: Jaya Betancur IS THIS A REPEAT EXAM DURING THIS ENCOUNTER: No Type of Exam: Pelvic OB Trans Abdominal REASON FOR EXAM: other indication: First trimester Exam Complete. DIFFERENTAL DIAGNOSES: No definitive intrauterine
[2024-03-07 10:21] VITALS: BP 162/81; PULSE 103; RESP 26; TEMP 36.9; O2SAT 100
[2024-03-07] MEDS: Normal Saline 1,000 ML 1000 ML IV (10:36)
[2024-03-07] MEDS: Metoclopramide 10 MG/2 ML VIAL IVP (10:42)
[2024-03-07 10:43] LABS: Bilirubin Small (Negative); Blood Negative (Negative); Clarity Sl Cloudy (Clear); Glucose 100 mg/dL (Negative); Ketones >=160 mg/dL (Negative); Leukocyte Esterase Negative (Negative); Nitrite Negative (Negative); Specific Gravity 1.015 (1.005-1.025); pH 8.5 (5-8)
[2024-03-07 10:44] LABS: Abs Immature Grans 0.05 10^3/uL (0.0-0.06); Absolute Basophil Count 0.02 10^3/uL (0.0-0.2); Absolute Eosinophil Count 0.01 10^3/uL (0.0-0.7); Absolute Monocyte Count 0.75 10^3/uL (0.1-0.8); Basophils % 0.2; Eosinophils % 0.1; HCT 41.9 % (36.0-46.0); HGB 14.8 g/dL (11.2-15.7); Immature Grans % 0.4; Lymphocytes % 9.9; MCH 30.1 pg (27.0-33.0); MCHC 35.3 % (32.0-36.0); MCV 85 fL (80-95); MPV 9.6 fL (8.0-11.0); Monocytes % 6.1; Neutrophils % 83.3; Platelet Count 250 10^3/uL (130-400); RBC 4.92 10^6/uL (3.93-5.22); RDW 12.9 % (11.7-14.6); RDW-SD 39.8 fL; WBC 12.37 10^3/uL (4.4-10.8)
[2024-03-07 10:45] LABS: Absolute Lymphocyte Count 1.22 10^3/uL (1.2-3.4)
[2024-03-07 10:56] LABS: Bacteria Rare HPF (Negative); C & S Indicated? No/Sq. Contamination; Casts 0-2 Hyaline LPF (Negative); Crystals Negative HPF (Negative); Epithelial Cells Moderate HPF (Negative); Mucus Moderate (Negative); RBC Negative HPF (0-2); WBC Negative HPF (0-5)
--- NOTE | 2024-03-07 11:00 | RT.EKG_ITS ---
APPROVED REPORT Exam: Resting ECG Reason for Exam: Hypokalemia Patient Location: E HR:64 bpm ECG Measurements Heart Rate 64 AXIS [place] 153 P 3 QRSd 109 QRS 74 QT 400 T 23 QTc 413 Conclusion Sinus rhythm...normal P axis, V-rate 60- 99 Nonspecific T abnormalities, anterior leads...T <-0.10mV, V2-V4 normal sinus rhythm at a rate of 64. Normal axis. Intervals within normal limits. Interventricular conduction delay. No prior for comparison. T wave inversion in V3.
[2024-03-07 11:02] LABS: Anion Gap 16.2 mmol/L (3-11); BUN 6 mg/dL (7-18); CO2 21.8 mmol/L (21.0-32.0); CREATININE 0.7 mg/dL (0.55-1.02); Calcium 9.3 mg/dL (8.5-10.1); Chloride 99 mmol/L (98-107); Estimated GFR 119.99 (mL/min/1.73m2); Glucose 112 mg/dL (74-106); Magnesium 1.7 mg/dL (1.8-2.4); Sodium 137 mmol/L (136-145)
[2024-03-07] MEDS: DEXTROSE 5%-0.9% SALINE 1,000 ML 1000 ML IV (11:04)
[2024-03-07 11:15] LABS: Potassium 2.6 mmol/L (3.5-5.1)
[2024-03-07] MEDS: MAGNESIUM SULFATE 2 GM/50 ML BAG IVPB (11:28)
[2024-03-07] MEDS: POTASSIUM CHLORIDE 20 MEQ/100 ML BAG 50 MEQ IVPB (11:29)
[2024-03-07 11:42] VITALS: PULSE 87; RESP 20
[2024-03-07 13:14] VITALS: BP 119/77; PULSE 77; RESP 16; O2SAT 98
[2024-03-07] MEDS: Potassium Chloride 20 MEQ TABCR 40 MEQ PO (13:38)
== END 2024-03-07 13:45 | disposition home or self-care (01) ==
PROVIDERS: Emergency Provider Emergency Medicine
DX: O26.891 Other specified pregnancy related conditions, first trimester (principal); E83.42 Hypomagnesemia; R81 Glycosuria; E87.6 Hypokalemia
CPT/HCPCS: 76815; 80048; 93005; 96361; 96365; 96366; 96368; 96375; 99284; 81003; 81015; 83735; 85025; 87086; 93010; J2765; J3475; J3480; J7042

== ENCOUNTER 2024-03-08 02:08 | Observation (INO) | payer OTHER, SELFPAY ==
[2024-03-08] VITALS (26 sets, daily range): BP systolic 120–158; BP diastolic 62–88; PULSE 60–85; RESP 16–20; TEMP 36.4–37.2; O2SAT 97–100
--- NOTE | 2024-03-08 02:37 | ED.GENADUL_ITS ---
Discharge Plan Disposition Patient Disposition: Admit to [facility] Condition: Fair Discharge Details Chief Complaint: Nausea/Vomit/Diar Clinical Impression: Nausea and vomiting during prior to 22 weeks gestation, Hypokalemia Primary Care Provider: Unknown,Unknown ED Provider: Noble Roberts Home Meds and New Rx's Prescriptions: No Action doxylamine-pyridoxine (vit B6) [Diclegis] 10-10 mg tablet,delayed release (DR/EC) 1 tab PO BID Qty: 14 0RF PNV #[id number] acid-[id number] 30 mg iron-10 mg iron-1 mg capsule 1 cap PO BID Qty: 90 0RF doxylamine-pyridoxine (vit B6) [Diclegis] 10-10 mg tablet,delayed release (DR/EC) 1 tab PO DAILY Qty: 30 0RF HPI General Date/Time Provider Initiated Documentation: 03/08/24 02:13 . HPI Narrative: The patient is a 28-year-old female, Ab1, presents to the emergency department this morning for her third visit in 48 hours with complaints of nausea, vomiting, and inability to tolerate and hold down liquids. The patient is approximately 6 weeks and was found to be hypokalemic and hypomagnesemic earlier today, in addition to having some dehydration. The patient was prescribed Diclegis twice, with prescription sent to 2 different pharmacies, and the patient was never able to obtain this medication as neither pharmacy had it in stock and the second pharmacy had to order it. The patient reports that she has been vomiting more than 20 times a day and could not sleep with the vomiting. She has some mild abdominal discomfort, which she feels is muscular and related to the recurrent vomiting. The patient denies any vaginal bleeding or any vaginal discharge. The patient denies any associated diarrhea. 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 She was hoping to initially follow-up with the [facility], but thinks now that perhaps she would follow-up locally with obstetrics in the [facility]. Related Data Home Medications Medication Instructions Recorded Confirmed doxylamine 10 mg-pyridoxine (vit 1 tab PO DAILY #30 tabs 03/06/24 03/08/24 B6) 10 mg tablet,delayed release (Diclegis) vitamin#30 30 mg iron-10 1 cap PO BID #90 caps 03/06/24 03/08/24 mg iron-folic acid 1 mg-omg3 capsule doxylamine 10 mg-pyridoxine (vit 1 tab PO BID #14 tabs 03/07/24 03/08/24 B6) 10 mg tablet,delayed release (Diclegis) Previous Rx's Medication Instructions Recorded doxylamine 10 mg-pyridoxine (vit 1 tab PO DAILY #30 tabs 03/06/24 B6) 10 mg tablet,delayed release (Diclegis) vitamin#30 30 mg iron-10 1 cap PO BID #90 caps 03/06/24 mg iron-folic acid 1 mg-omg3 capsule doxylamine 10 mg-pyridoxine (vit 1 tab PO BID #14 tabs 03/07/24 B6) 10 mg tablet,delayed release (Diclegis) Allergies Allergy/AdvReac Type Severity Reaction Status Date / Time No Known Allergies Allergy Unverified 03/08/24 02:17 General Stated Complaint: Nausea/Vomit/Diar KARINE: 4 Exam Const General: cooperative, healthy appearing and no acute distress Resp Effort & Inspection: normal respiratory effort and able to speak in complete sentences Auscultation: clear to auscultation bilaterally Cardio Rate: regular rate Rhythm: regular rhythm Heart Sounds: S1 normal and S2 normal GI Palpation: soft and nontender Auscultation: hypoactive bowel sounds Skin Other: [place], warm, dry Neuro Other: There are no focal motor or sensory deficits reported or observed. The observed components of cranial nerves II through XII are normal. Extrem Other: There is no cyanosis, clubbing, or edema present. There are normal distal pulses bilaterally. Course Vital Signs Vital signs: Vital Signs Temperature 36.4 C L 03/08/24 02:11 Pulse 85 03/08/24 02:11 Respiratory Rate 16 03/08/24 02:11 Blood Pressure 158/81 H 03/08/24 02:11 Pulse Oximetry 98 03/08/24 02:11 Temperature 36.4 C L 03/08/24 02:11 Temperature Source Tympanic 03/08/24 02:11 Pulse 85 03/08/24 02:11 Respiratory Rate 16 03/08/24 02:11 Blood Pressure 158/81 H 03/08/24 02:11 Blood Pressure Position Supine 03/08/24 02:11 Pulse Oximetry 98 03/08/24 02:11 Oxygen Delivery Method Room Air 03/08/24 02:11 Oxygen Flow Rate 0 03/08/24 02:11 Pain Level 3 03/08/24 02:11 Medical Decision Making The patient was seen and examined. This likely continues to represent nausea and vomiting of . The patient's quantitative beta-hCG from earlier today was relatively low, which would seem to be somewhat incongruence with hyperemesis gravidarum. However, the patient certainly has ongoing nausea, vomiting, and likely some modest dehydration. The patient had some modest electrolyte abnormalities earlier today and will have a repeat set of electrolytes obtained here tonight for screening. The patient will be given some additional IV potassium replacement and some IV fluid boluses. The patient was given IV metoclopramide and acetaminophen for relief of her symptoms here in the emergency room. Depending on her emergency room course and the repeat electrolytes, the patient can potentially be discharged with a different antiemetic medication or be admitted if she is unable to tolerate oral liquids. I can discuss the case with obstetrics, once the data has been obtained and additional observation has been completed in the emergency room. 0650 - Despite multiple amounts of medication here in the emergency room, the patient has continued to have persistent intermittent vomiting. I discussed the case with Dr. Spence from obstetrics who will come and evaluate the patient for consideration of admission for ongoing hydration and control of her nausea. The patient was given IV Reglan, IV Zofran, IV Protonix, and now IV Benadryl for help in ameliorating her symptoms. She was initially given some calcium carbonate as well to help improve her heartburn-like symptoms. She was repleted here in the emergency room with 40 mill equivalents of IV potassium. Quality:SDOH Health Related Social Needs: No Data to Display [facility] All Active Problems (Updated 03/08/24 @ 07:12 by Noble Roberts MD) Hypokalemia (Acute) Glucosuria (Acute) Hypomagnesemia (Acute) Nausea and vomiting during prior to 22 weeks gestation (Acute) Metabolic acidosis, increased anion gap (Acute) test positive (Acute) Abnormal uterine bleeding (AUB) (Acute) Medical History No acute medical problems Surgical History No significant past surgical history Family History Mother Asthma ? uses inhaler, is a smoker Grandmother , stroke at age 73. No problems noted. Social History Smoking/Tobacco Use Status: Current every day Tobacco Type: cigarettes Smoking risk assessment performed?: Yes Alcohol Intake: current Alcohol Intake frequency: a few times a month Drug use: Daily Substance use type: marijuana Housing: house Do you feel safe at home: Yes Do you feel safe in your relationship?: Yes
[2024-03-08 02:38] LABS: BUN 4 mg/dL (7-18); CREATININE 0.6 mg/dL (0.55-1.02); Chloride 100 mmol/L (98-107); Estimated GFR 124.53 (mL/min/1.73m2); Glucose 112 mg/dL (74-106); Magnesium 1.8 mg/dL (1.8-2.4); Sodium 134 mmol/L (136-145)
[2024-03-08] MEDS: ACETAMINOPHEN 1,000 MG/100 ML BTL 400 MG IVPB (02:39)
[2024-03-08] MEDS: POTASSIUM CHLORIDE/D5-0.45NACL 1,000 ML 250 MEQ IV (02:40)
[2024-03-08] MEDS: Normal Saline 50 ML 200 ML (02:40)
[2024-03-08] MEDS: Metoclopramide 10 MG/2 ML VIAL IVP ×3 (02:40→14:11)
[2024-03-08] MEDS: Normal Saline 1,000 ML 1000 ML IV (03:00)
[2024-03-08 03:21] LABS: HCG Quant, Pregnancy 40025 mIU/mL (1-3)
[2024-03-08] MEDS: Ondansetron 4 MG/2 ML VIAL IVP ×3 (05:07→16:31)
[2024-03-08] MEDS: Calcium Carbonate *TUMS* 500 MG CHEW PO (06:13)
[2024-03-08] MEDS: diphenhydrAMINE 50 MG/ML VIAL 25 MG IVP (06:30)
[2024-03-08] MEDS: Pantoprazole 40 MG VIAL IVP (06:30)
--- NOTE | 2024-03-08 07:48 | OBCE_ITS ---
Date of service: 03/08/24 Time of Service: 17:07 History of Present Illness Narrative: Patient is a 28-year-old female, Ab1, with LMP 01/24/24 currently 6w EGAwho presented to the emergency department for her third visit in 48 hours with complaints of nausea, vomiting, and inability to tolerate and hold down liquids. The patient is approximately 5w2d weeks and was found to be hypokalemic and hypomagnesemic earlier today, in addition to having some dehydration. She received Potassium replacement and Reglan yesterday and then a dose of Ondansetron IV while in the ED. Pt continues nauseated. I recommended observation, additional antiemetics, PPI and continued IV hydration. Consults Consult date: 03/08/24 Requesting physician: Cami Spence Review of Systems Constitutional Constitutional: Reports fatigue and Reports poor appetite (unable to tolerate any POs) Cardiovascular Cardiovascular: Denies chest pain and Denies irregular heart rhythm Respiratory Respiratory: Reports system reviewed and no additional complaints, except as documented Gastrointestinal Gastrointestinal: Reports cramping, Reports heartburn, Reports nausea and Reports vomiting Genitourinary Genitourinary: Denies abnormal vaginal bleeding and Reports amenorrhea Comments: + home UPT Musculoskeletal Musculoskeletal: Reports system reviewed and no additional complaints, except as documented Integumentary/Breasts Skin/Breast: Reports system reviewed and no additional complaints, except as documented Neurologic Neurologic: Reports system reviewed and no additional complaints, except as documented Psychiatric Psychiatric: Reports abnormal sleep pattern and Reports anxiety Endocrine Endocrine: Reports fatigue PFSH All Active Problems (Updated 03/08/24 @ 07:12 by Noble Roberts MD) Hypokalemia (Acute) Glucosuria (Acute) Hypomagnesemia (Acute) Nausea and vomiting during prior to 22 weeks gestation (Acute) Metabolic acidosis, increased anion gap (Acute) test positive (Acute) Abnormal uterine bleeding (AUB) (Acute) Medical History No acute medical problems Surgical History No significant past surgical history Family History Mother Asthma ? uses inhaler, is a smoker Grandmother , stroke at age 73. No problems noted. Social History Smoking/Tobacco Use Status: Current every day Tobacco Type: cigarettes Smoking risk assessment performed?: Yes Alcohol Intake: current Alcohol Intake frequency: a few times a month Drug use: Daily Substance use type: marijuana Housing: house Do you feel safe at home: Yes Do you feel safe in your relationship?: Yes Female Reproductive History Menstrual Date of last menstrual period: 01/24/24 History History 2 2 Para Hx # Term Pregnancies 0 Multiple births Hx # Pregnancies Ectopic pregnancies AB induced Hx Number of Living Children 1 AB spontaneous 1 Exam Narrative Exam Narrative: Lying in bed, semi-fowlers. Pt has received IV ondansetron, Compazine, Reglan and Protonix during the day. Her nausea recurred when she was due for her next dose of Ondansetron. She has been taking limited POs today. She was given an 20meq Potassium IV earlier today. Const General: no acute distress Nutritional Appearance: average body habitus Orientation: alert, awake and oriented x3 Neck Neck: anterior neck swelling Resp Effort & Inspection: normal respiratory effort Auscultation: clear to auscultation bilaterally Cardio Rate: regular rate Rhythm: regular rhythm GI Inspection: non-distended Palpation: soft, no hepatosplenomegaly, no masses and nontender Rectal Exam - female: deferred General: deferred Back/Spine/Pelvis Back: no CVA tenderness Skin General skin exam: no rashes or lesions noted Neuro Speech: speech normal Gait: normal gait Motor: muscle tone normal throughout Extrem General: normal to inspection Psych Appearance: grossly normal Mental Status: mental status grossly normal Speech and Movement: speech and movement normal Mood: congruent mood Results Last Vital Signs Temp 97.5 F L 03/08/24 05:57 Pulse 67 03/08/24 06:32 Resp 20 03/08/24 06:32 BP 122/64 03/08/24 06:32 Pulse Ox 100 03/08/24 06:32 Labs 03/08/24 02:22 Labs: Laboratory Results - last 24 hr 03/08/24 02:22 Sodium 134 L Potassium 3.0 L Chloride 100 Carbon Dioxide 22.0 Anion Gap 12.0 H BUN 4 L Creatinine 0.6 Est GFR (CKD-EPI 2020) 124.53 Glucose 112 H Calcium 9.0 Magnesium 1.8 Beta HCG, Quant 59817 H
--- NOTE | 2024-03-08 08:41 | NUR.NOTE ---
Went to check on Pt. Both Pt and significant other are sleeping comfortably.Nursing Note:
[2024-03-08] MEDS: Lactated Ringers 1,000 ML 150 ML IV (10:05)
[2024-03-08] MEDS: Normal Saline Flush 10 ML SYR IVP ×3 (10:05→13:15)
[2024-03-08] MEDS: POTASSIUM CHLORIDE/0.9% NACL 1,000 ML 100 MEQ IV (13:14)
[2024-03-08] MEDS: Promethazine 25 MG SUPP PR (13:40)
--- NOTE | 2024-03-08 18:01 | W.PM.DS.N ---
Date of service: 03/08/24 Time of Service: 18:01 DS: Diagnosis Discharge Diagnosis (1) Hypokalemia: Status: Acute (2) Nausea and vomiting during prior to 22 weeks gestation: Status: Acute (3) test positive: Status: Acute Discharge Plan Disposition Patient Disposition: Home Condition: Fair Condition: Improving Discharge Details Reason For Visit: Hyperemesis 5w5d EGA Admit Date/Time: 03/08/24 07:38 Admit Provider: Cami Spence Attending Provider: Cami Spence Primary Care Provider: Unknown,Unknown Hospital Course Hospital Course: Patient admitted the morning of 03/08/2024 with recurrent nausea vomiting at approximately 5W5D EGA. She required potassium replacement and Reglan, ondansetron and Phenergan suppositories before she could tolerate any liquids. She also was given a prescription for diplegia's that she was able to fill today. Plan is to have [facility]2024 to assess nausea or vomiting. Pelvic ultrasound was deferred at this time secondary to the patient's early gestational age. Home Meds and New Rx's Prescriptions: No Action ondansetron HCl 4 mg tablet 4 mg PO Q6H PRN (Reason: nausea and vomiting) Qty: 60 4RF doxylamine-pyridoxine (vit B6) [Diclegis] 10-10 mg tablet,delayed release (DR/EC) 1 tab PO BID Qty: 14 0RF PNV #[id number] acid-[id number] 30 mg iron-10 mg iron-1 mg capsule 1 cap PO BID Qty: 90 0RF doxylamine-pyridoxine (vit B6) [Diclegis] 10-10 mg tablet,delayed release (DR/EC) 1 tab PO DAILY Qty: 30 0RF Discharge Instructions Additional Instructions: Call [phone] on 03/09/2023 to make an appointment to be followed at the [facility] on 03/10/2024. I would avoid solid foods at this time but instead take liquids or popsicles. You have a prescription for the ondansetron 4 mg take that every 6 hours, you have been given a prescription for Phenergan suppositories and for Reglan 10 mg every 6 hours as needed. If you develop nausea and vomiting this evening or tomorrow please return to the emergency department or call the office for further evaluation. Activity:: Activity as Tolerated Equipment/Supplies:: No Equipment Needed Diet:: As Tolerated Discharge Orders Discharge Orders: Discharge Order (Routine); Ordered 03/08/24 Ordered By: Cami Spence DS: Summary Time Spent with Patient providing and/or coordinating discharge services: Less than 30 minutes Status at Discharge Functional status at discharge: independent ambulation Overall status at discharge: patient is progressing back to baseline Mental Status: mental status grossly normal Speech and Movement: speech and movement normal Mood: congruent mood Affect: normal affect Quality:SDOH Health Related Social Needs: No Data to Display Exam Narrative Exam Narrative: Lying in bed, semi-fowlers. Pt has received IV ondansetron, Phenergan, Reglan and Protonix during the day. Her nausea recurred when she was due for her next dose of Ondansetron. She has been taking limited POs today. She was given an 20meq Potassium IV earlier today. Const General: no acute distress Nutritional Appearance: average body habitus Orientation: alert, awake and oriented x3 Neck Neck: anterior neck swelling Resp Effort & Inspection: normal respiratory effort Auscultation: clear to auscultation bilaterally Cardio Rate: regular rate Rhythm: regular rhythm GI Inspection: non-distended Palpation: soft, no hepatosplenomegaly, no masses and nontender Rectal Exam - female: deferred General: deferred Back/Spine/Pelvis Back: no CVA tenderness Skin General skin exam: no rashes or lesions noted Neuro Speech: speech normal Gait: normal gait Motor: muscle tone normal throughout Extrem General: normal to inspection Psych Appearance: grossly normal Mental Status: mental status grossly normal Speech and Movement: speech and movement normal Mood: congruent mood Affect: normal affect DS: Data Vitals/I&O Vitals and I&O: Vital Signs Temperature 97.7 F 03/08/24 16:00 Temperature Source Oral 03/08/24 09:32 Temperature Source Oral 03/08/24 16:00 Pulse 68 03/08/24 16:00 Pulse Rhythm Regular 03/08/24 16:00 Pulse Strength Normal 03/08/24 05:57 Respiratory Rate 16 03/08/24 16:00 Respiratory Effort Normal 04/10/24 09:47 Respiratory Depth Normal 03/08/24 09:47 Respiratory Pattern Normal 03/08/24 09:47 Blood Pressure 127/84 03/08/24 16:00 Blood Pressure Mean 98 03/08/24 16:00 Blood Pressure Position Sitting 03/08/24 05:57 Pulse Oximetry 99 03/08/24 16:00 Oxygen Delivery Method Room Air 03/08/24 09:32 Oxygen Flow Rate 0 03/08/24 09:32 Pain Level 1 03/08/24 16:00 Intake & Output 03/07/24 03/08/24 03/08/24 23:59 11:59 23:59 Intake Total 1100 / 1575 475 / 1575 Output Total 290 / 390 100 / 390 Balance 810 / 1185 375 / 1185 Weight 160 lb Intake: IV 1100 / 1575 475 / 1575 Output: Urine 250 / 350 100 / 350 Emesis 40 / 40 Other: Urine Color Yellow Yellow Urine Appearance Clear Clear Urine Odor None Emesis Description Retching Voiding Methods Toilet Data Completed and Pending Labs on day of discharge: Labs from last 24 hours 03/08/24 02:22 Sodium 134 L Potassium 3.0 L Chloride 100 Carbon Dioxide 22.0 Anion Gap 12.0 H BUN 4 L Creatinine 0.6 Est GFR (CKD-EPI 2020) 124.53 Glucose 112 H Calcium 9.0 Magnesium 1.8 Beta HCG, Quant 74979 H PFSH All Active Problems (Updated 03/08/24 @ 07:12 by Noble Roberts MD) Hypokalemia (Acute) Glucosuria (Acute) Hypomagnesemia (Acute) Nausea and vomiting during prior to 22 weeks gestation (Acute) Metabolic acidosis, increased anion gap (Acute) test positive (Acute) Abnormal uterine bleeding (AUB) (Acute) Medical History No acute medical problems Surgical History No significant past surgical history Family History Mother Asthma ? uses inhaler, is a smoker Grandmother , stroke at age 73. No problems noted. Social History Smoking/Tobacco Use Status: Current every day Tobacco Type: cigarettes Smoking risk assessment performed?: Yes Alcohol Intake: current Alcohol Intake frequency: a few times a month Drug use: Daily Substance use type: marijuana Housing: house Do you feel safe at home: Yes Do you feel safe in your relationship?: Yes History History 2 Para Hx # Term Pregnancies 0 Multiple births Hx # Pregnancies Ectopic pregnancies AB induced Hx Number of Living Children 1 AB spontaneous 1 Time Spent with Patient Time Spent with Patient: <45 minutes Time was spent: preparing to see the patient(eg.review tests), obtaining and/or reviewing separately otained hiistory and ordering medications,tests, procedures
== END 2024-03-08 18:25 | disposition home or self-care (01) ==
LOC: ER 07:12 → OBS 09:32
PROVIDERS: Admitting Provider Obstetrics & Gynecology Gynecology; Emergency Provider Emergency Medicine Emergency Medical Services; Visit Provider Obstetrics & Gynecology Gynecology
DX: O21.1 Hyperemesis gravidarum with metabolic disturbance (principal); Z3A.01 Less than 8 weeks gestation of pregnancy; E83.42 Hypomagnesemia; R81 Glycosuria
CPT/HCPCS: 80048; 96361; 96365; 96366; 96368; 96375; 99285; 83735; 84702; J0131; J1200; J2405; J2470; J2765

== ENCOUNTER 2024-04-03 11:32 | Emergency (ER) | payer OTHER, SELFPAY ==
[2024-04-03 11:35] VITALS: BP 162/99; PULSE 104; TEMP 37.2; O2SAT 100
--- NOTE | 2024-04-03 12:00 | ED.GENADUL_ITS ---
Discharge Plan Disposition Patient Disposition: Home Condition: Stable Discharge Details Clinical Impression: Threatened , Elevated blood pressure reading, Hypokalemia ED Provider: Law Munoz Home Meds and New Rx's Prescriptions: Continued ondansetron HCl 4 mg tablet 4 mg PO Q6H PRN (Reason: nausea and vomiting) Qty: 60 4RF promethazine 25 mg suppository 25 mg [place] Q6H PRN (Reason: nausea and vomiting) Qty: 12 1RF metoclopramide HCl [Reglan] 10 mg tablet 10 mg PO Q6H PRN (Reason: nausea and vomiting) Qty: 30 4RF omeprazole 40 mg capsule,delayed release(DR/EC) 40 mg PO DAILY Qty: 60 5RF PNV #[id number] acid-omega3 30 mg iron-10 mg iron-1 mg capsule 1 cap PO BID Qty: 90 0RF Discharge Instructions Instructions: Threatened Miscarriage (ED), Hypokalemia (ED) Additional Instructions: Please follow-up with obstetrics. Call today to arrange follow-up. No sexual activity until cleared by your OB. No exertional activity or lifting greater than 20 pounds until cleared by your OB. Return to the ER immediately for any worsening or new concerning symptoms. Stand Alone Forms: Work Release Referrals: [facility] [Provider Group] Discharge Data Discharge Date/Time-TO BE ENTERED AT DEPARTURE: 04/03/24 14:03 HPI General Mode of arrival: ambulatory . Date/Time Provider Initiated Documentation: 04/03/24 11:52 . Limitations to Documentation: no limitations . Information obtained by: patient . HPI Narrative: 28-year-old at 9 weeks 5 days here with vaginal spotting. Spotting started this morning. Patient has no associated abdominal pain. No cramping. No abnormal vaginal discharge. No dysuria and no fever. Last sexual activity was last night. No trauma. Related Data Home Medications Medication Instructions Recorded Confirmed vitamin#30 30 mg iron-10 1 cap PO BID #90 caps 03/06/24 04/07/24 mg iron-folic acid 1 mg-omg3 capsule metoclopramide HCl 10 mg tablet 10 mg PO Q6H PRN nausea and 03/08/24 04/07/24 (Reglan) vomiting #30 tabs omeprazole 40 mg capsule,delayed 40 mg PO DAILY #60 caps 03/08/24 04/07/24 release ondansetron HCl 4 mg tablet 4 mg PO Q6H PRN nausea and 03/08/24 04/07/24 vomiting #60 tabs promethazine 25 mg rectal 25 mg NJ Q6H PRN nausea and 03/08/24 04/07/24 suppository vomiting #12 ea Previous Rx's Medication Instructions Recorded vitamin#30 30 mg iron-10 1 cap PO BID #90 caps 03/06/24 mg iron-folic acid 1 mg-omg3 capsule metoclopramide HCl 10 mg tablet 10 mg PO Q6H PRN nausea and 03/08/24 (Reglan) vomiting #30 tabs omeprazole 40 mg capsule,delayed 40 mg PO DAILY #60 caps 03/08/24 release ondansetron HCl 4 mg tablet 4 mg PO Q6H PRN nausea and 03/08/24 vomiting #60 tabs promethazine 25 mg rectal 25 mg NJ Q6H PRN nausea and 03/08/24 suppository vomiting #12 ea Allergies Allergy/AdvReac Type Severity Reaction Status Date / Time No Known Allergies Allergy Unverified 04/07/24 10:01 General Stated Complaint: NEPH[employer] KARINE: 3 Review of Systems All systems reviewed & are unremarkable except as noted in HPI and below Constitutional Constitutional: Denies fever(s) Genitourinary Genitourinary: Reports as per HPI Exam Const General: cooperative and no acute distress HENNE Mouth: moist mucous membranes Eyes Conjunctivae: normal conjunctivae Sclera: normal sclerae Resp Auscultation: clear to auscultation bilaterally, no rales, no rhonchi and no wheezes Cardio Rate: regular rate and not tachycardic Rhythm: regular rhythm GI Palpation: soft, not firm, no guarding, no masses, not rigid and nontender Neuro General: patient alert, patient awake and tone normal Extrem General: no edema Course Vital Signs Vital signs: Vital Signs Temperature 37.2 C 04/03/24 11:35 Pulse 104 H 04/03/24 11:35 Blood Pressure 162/99 H 04/03/24 11:35 Pulse Oximetry 100 04/03/24 11:35 Temperature 37.2 C 04/03/24 11:35 Temperature Source Temporal Artery Scan 04/03/24 11:35 Pulse 104 H 04/03/24 11:35 Respiratory Effort Normal, Non-Labored 04/03/24 11:38 Blood Pressure 162/99 H 04/03/24 11:35 Blood Pressure Position Sitting 04/03/24 11:35 Pulse Oximetry 100 04/03/24 11:35 Oxygen Delivery Method Room Air 04/03/24 11:35 Oxygen Flow Rate 0 04/03/24 11:35 Medical Decision Making 1230 -- 28-year-old at 9 wk5d here with vaginal spotting today. No a bdominal pain. Abdominal exam benign. POCUS exam was performed and confirmed IUP with heart rate 152 and movement. No free fluid noted. Patient is hypertensive today. Patient seen last month for nausea and vomiting and found to be hypokalemic. I will recheck chemistries. Consider need for RhoGAM and will check type and screen. 1343 --Labs reviewed. O+. Mild hypokalemia noted. I will give potassium chloride. Patient reassessed and blood pressure normalized. I spoke with Dr. Mcknight, discussed ED presentation course, she recommends close outpatient follow-up. Lab Data Lab results reviewed: Yes I reviewed the patient's lab results. Labs: Laboratory Tests Range/Units 04/03/24 04/03/24 12:01 12:04 WBC (4.4-10.8) 10^3/uL 7.57 RBC (3.93-5.22) 10^6/uL 4.07 Hgb (11.2-15.7) g/dL 12.5 Hct (36.0-46.0) % 35.9 L MCV (80-95) fL 88 MCH (27.0-33.0) pg 30.7 MCHC (32.0-36.0) % 34.8 RDW (11.7-14.6) % 12.6 Plt Count (130-400) 10^3/uL 162 MPV (8.0-11.0) fL 9.9 Immature Gran % % 0.3 Neutrophils % % 71.0 Lymphocytes % % 20.9 Monocytes % % 7.0 Eosinophils % % 0.5 Basophils % % 0.3 Nucleated RBC % (0.0-0.3) % 0.0 Absolute Neutrophils (1.2-6.7) 10^3/uL 5.38 Absolute Lymphocytes (1.2-3.4) 10^3/uL 1.58 Absolute Monocytes (0.1-0.8) 10^3/uL 0.53 Absolute Eosinophils (0.0-0.7) 10^3/uL 0.04 Absolute Basophils (0.0-0.2) 10^3/uL 0.02 Sodium (136-145) mmol/L 138 Potassium (3.5-5.1) mmol/L 3.3 L Chloride (98-107) mmol/L 102 Carbon Dioxide (21.0-32.0) mmol/L 23.3 Anion Gap (3-11) mmol/L 12.7 H BUN (7-18) mg/dL 6 L Creatinine (0.55-1.02) mg/dL 0.5 L Est GFR (CKD-EPI 2020) (mL/min/1.73m2) 130.12 Glucose (74-106) mg/dL 82 Calcium (8.5-10.1) mg/dL 8.6 Total Bilirubin (0.2-1.0) mg/dL 0.4 AST (15-37) U/L 13 L ALT (14-59) U/L 20 Alkaline Phosphatase (46-116) U/L 55 Total Protein (6.4-8.2) g/dL 7.3 Albumin (3.4-5.0) g/dL 3.8 ABO/Rh O Positive Antibody Screen NEGATIVE Quality:SDOH Health Related Social Needs: No Data to Display PFSH All Active Problems (Updated 04/07/24 @ 10:07 by Cami Spence MD) Antepartum bleeding, first trimester (Acute) Hypokalemia (Acute) Elevated blood pressure reading (Acute) Threatened (Acute) Glucosuria (Acute) Hypomagnesemia (Acute) Nausea and vomiting during prior to 22 weeks gestation (Acute) Metabolic acidosis, increased anion gap (Acute) test positive (Acute) Abnormal uterine bleeding (AUB) (Acute) Medical History No acute medical problems Surgical History No significant past surgical history Family History Mother Asthma ? uses inhaler, is a smoker Grandmother , stroke at age 73. No problems noted. Social History Smoking/Tobacco Use Status: Current every day Tobacco Type: cigarettes Smoking risk assessment performed?: Yes Alcohol Intake: current Alcohol Intake frequency: a few times a month Drug use: Daily Substance use type: marijuana Housing: house Do you feel safe at home: Yes Do you feel safe in your relationship?: Yes History History 2 Para Hx # Term Pregnancies 0 Multiple births Hx # Pregnancies Ectopic pregnancies AB induced Hx Number of Living Children 1 AB spontaneous 1 POCUS Exam (ED) Limited OB Exam DATE OF EXAM:: 04/03/24 TIME OF EXAM:: 12:21 PROVIDER THAT PERFORMED THE STUDY: Law Munoz IS THIS A REPEAT EXAM DURING THIS ENCOUNTER: No Type of Exam: Pelvic OB Trans Abdominal REASON FOR EXAM: Vaginal Bleeding VISUALIZED STRUCTURES: Uterus PERTINENT FINDINGS/IMPRESSION: cardiac activity (152) and other ( movement) impression: threatened ab Exam Complete. DIFFERENTAL DIAGNOSES: threatened ab vs incomplete ab
[2024-04-03 12:32] LABS: Abs Immature Grans 0.02 10^3/uL (0.0-0.06); Absolute Basophil Count 0.02 10^3/uL (0.0-0.2); Absolute Eosinophil Count 0.04 10^3/uL (0.0-0.7); Absolute Lymphocyte Count 1.58 10^3/uL (1.2-3.4); Absolute Monocyte Count 0.53 10^3/uL (0.1-0.8); Absolute Neutrophil Count 5.38 10^3/uL (1.2-6.7); Basophils % 0.3 %; Eosinophils % 0.5 %; HCT 35.9 % (36.0-46.0); HGB 12.5 g/dL (11.2-15.7); Immature Grans % 0.3 %; Lymphocytes % 20.9 %; MCH 30.7 pg (27.0-33.0); MCHC 34.8 % (32.0-36.0); MCV 88 fL (80-95); MPV 9.9 fL (8.0-11.0); Platelet Count 162 10^3/uL (130-400); RBC 4.07 10^6/uL (3.93-5.22); RDW 12.6 % (11.7-14.6); RDW-SD 40.7 fL; WBC 7.57 10^3/uL (4.4-10.8)
[2024-04-03 12:34] VITALS: BP 117/73; PULSE 78; RESP 14; O2SAT 99
[2024-04-03 13:37] LABS: ALT 20 U/L (14-59); AST 13 U/L (15-37); Albumin 3.8 g/dL (3.4-5.0); Alkaline Phosphatase 55 U/L (46-116); Anion Gap 12.7 mmol/L (3-11); BUN 6 mg/dL (7-18); Bilirubin, Total 0.4 mg/dL (0.2-1.0); CO2 23.3 mmol/L (21.0-32.0); CREATININE 0.5 mg/dL (0.55-1.02); Calcium 8.6 mg/dL (8.5-10.1); Chloride 102 mmol/L (98-107); Estimated GFR 130.12 (mL/min/1.73m2); Glucose 82 mg/dL (74-106); Potassium 3.3 mmol/L (3.5-5.1); Sodium 138 mmol/L (136-145); Total Protein 7.3 g/dL (6.4-8.2)
[2024-04-03] MEDS: Potassium Chloride 20 MEQ TABCR PO (13:56)
== END 2024-04-03 14:03 | disposition home or self-care (01) ==
PROVIDERS: Emergency Provider Student in an Organized Health Care Education/Training Program
DX: O20.0 Threatened abortion; R03.0 Elevated blood-pressure reading, without diagnosis of hypertension; E87.6 Hypokalemia
CPT/HCPCS: 76815; 80053; 86850; 86900; 86901; 99283; 85025

== ENCOUNTER 2024-04-18 05:07 | Outpatient (CLI) | payer OTHER, SELFPAY ==
[2024-04-18 12:14] LABS: Panorama Kit Sent via Fed Ex
[2024-04-18 12:26] LABS: Abs Immature Grans 0.01 10^3/uL (0.0-0.06); Absolute Basophil Count 0.02 10^3/uL (0.0-0.2); Absolute Eosinophil Count 0.04 10^3/uL (0.0-0.7); Absolute Lymphocyte Count 1.36 10^3/uL (1.2-3.4); Absolute Monocyte Count 0.48 10^3/uL (0.1-0.8); Absolute Neutrophil Count 5.93 10^3/uL (1.2-6.7); Basophils % 0.3 %; Eosinophils % 0.5 %; HCT 33.6 % (36.0-46.0); HGB 11.9 g/dL (11.2-15.7); Immature Grans % 0.1 %; Lymphocytes % 17.3 %; MCH 30.4 pg (27.0-33.0); MCHC 35.4 % (32.0-36.0); MCV 86 fL (80-95); MPV 10.4 fL (8.0-11.0); Monocytes % 6.1 %; Neutrophils % 75.7 %; Platelet Count 138 10^3/uL (130-400); RBC 3.91 10^6/uL (3.93-5.22); RDW 12.8 % (11.7-14.6); RDW-SD 39.6 fL; WBC 7.84 10^3/uL (4.4-10.8)
[2024-04-18 12:29] LABS: Glucose,1 Hr (Glucola) 149 mg/dL (80-140)
[2024-04-19 09:08] LABS: Hepatitis B Surface Ag Negative (Negative)
[2024-04-19 09:33] LABS: Hepatitis C Ab w Rflx HCV PCR Negative (Negative)
[2024-04-19 09:42] LABS: HIV-1/2 Ag & Ab Screen Negative (Negative)
[2024-04-19 10:21] LABS: Varicella IgG Antibody Positive (See Note)
[2024-04-19 16:19] LABS: Rubella IgG Ab (UVM) Negative (See Note)
[2024-04-20 23:26] LABS: Syphilis IgG w/Reflex Nonreactive (Nonreactive)
[2024-04-25 12:17] LABS: Specimen WB Whole Blood
[2024-05-05 16:48] LABS: Result Summary NEGATIVE; Specimen WB Whole Blood
== END 2024-04-18 05:08 | disposition home or self-care (01) ==
LOC: LBO 05:08
PROVIDERS: Visit Provider Advanced Practice Midwife
DX: Z34.91 Encounter for supervision of normal pregnancy, unspecified, first trimester (principal); Z3A.12 12 weeks gestation of pregnancy
CPT/HCPCS: 36415; 81220; 81222; 81329; 82950; 86787; 86803; 86850; 86900; 86901; 87340; 87389; 85025; 86762; 86780

== ENCOUNTER 2024-04-18 11:07 | Outpatient (REF) | payer OTHER, SELFPAY ==
--- NOTE | 2024-04-18 11:00 | PAPFT_PTH ---
PATIENT: Ariella Weeks LOC: [facility] U#:[id number] AGE/SX: 28/F ROOM: RE04/18/[address]: Concha Wilde CNM : 1995 BED: DIS: 04/18/2024 SPEC #: [id number] RECD: 04/18/24 12:32 STATUS: XIOMY REQ #: [id number] KIESHA: 04/18/24 11:[address]: Concha Wilde DEPT: [facility] Cytology RECD BY: Rosa Elena Sky Tissues: 1 - CX/ENDOCX FOR PAP SMEARS Procedures: PAP THIN PREP/[facility] Screening Comments: [id number] (CHLAMYDIA)
[2024-04-18 12:56] LABS: *AMPHETAMINES SCREEN URINE Negative (Negative); *BARBITURATES SCREEN URINE Negative (Negative); *BENZODIAZEPINES SCREEN URINE Negative (Negative); Cannabinoids THC Positive (Negative); Cocaine Screen,Urine Negative (Negative); METHADONE URINE SCREEN Negative (Negative); OPIATES URINE SCREEN Negative (Negative)
[2024-04-18 13:01] LABS: Tricyclic Antidepressants Negative (Negative)
[2024-04-19 15:30] LABS: Chlamydia Result Negative (Negative); GC Result Negative (Negative)
[2024-04-23 11:44] LABS: Buprenorphine Negative ng/mL (Cutoff: 5.0); Norbuprenorphine Negative ng/mL (Cutoff: 2.5)
== END 2024-04-18 11:08 | disposition home or self-care (01) ==
LOC: LBN 11:07
PROVIDERS: Visit Provider Advanced Practice Midwife
DX: Z34.91 Encounter for supervision of normal pregnancy, unspecified, first trimester (principal); Z3A.12 12 weeks gestation of pregnancy
CPT/HCPCS: 80307; 80348; 87491; 87591; 88142; 87086

== ENCOUNTER 2024-04-21 02:34 | Outpatient (CLI) | payer OTHER, SELFPAY ==
[2024-04-21 08:57] LABS: Glucose 1 Hour 138 mg/dL
[2024-04-21 11:16] LABS: Glucose 3 Hour 56 mg/dL
== END 2024-04-21 02:35 | disposition home or self-care (01) ==
LOC: LBO 02:34
PROVIDERS: Visit Provider Advanced Practice Midwife
DX: R73.09 Other abnormal glucose (principal)
CPT/HCPCS: 36415; 82951

== ENCOUNTER 2024-05-12 21:51 | Emergency (ER) | payer OTHER, SELFPAY ==
[2024-05-12 21:55] VITALS: BP 156/82; PULSE 98; RESP 16; TEMP 36.8; O2SAT 98
--- NOTE | 2024-05-12 22:18 | W.ED.GENAD ---
Discharge Plan Disposition Patient Disposition: Home Condition: Good Discharge Details Clinical Impression: , threatened, Thrombocytopenia affecting Primary Care Provider: Unknown,Unknown ED Provider: Maria Eugenia Castaneda Home Meds and New Rx's Prescriptions: Continued ondansetron HCl 4 mg tablet 4 mg PO Q6H PRN (Reason: nausea and vomiting) Qty: 60 4RF promethazine 25 mg suppository 25 mg ND Q6H PRN (Reason: nausea and vomiting) Qty: 12 1RF metoclopramide HCl [Reglan] 10 mg tablet 10 mg PO Q6H PRN (Reason: nausea and vomiting) Qty: 30 4RF omeprazole 40 mg capsule,delayed release(DR/EC) 40 mg PO DAILY Qty: 60 5RF PNV #[id number] acid-[id number] 30 mg iron-10 mg iron-1 mg capsule 1 cap PO BID Qty: 90 0RF Discharge Instructions Instructions: Bleeding in Early ED Additional Instructions: Keep your OB appointment on Wednesday. Do not take aspirin until after discussing it with them- your platelets (help blood clot) were slightly low in the ED today. Return to the emergency department for new or worsening symptoms including abdominal pain, fever, or vaginal bleeding that soaks a pad in less than 2 hours. HPI General Mode of arrival: ambulatory. Date/Time Provider Initiated Documentation: 05/12/24 22:02. Limitations to Documentation: no limitations. Information obtained by: patient, family and old records reviewed. HPI Narrative: 28yo F at 15w 3d gestation by early ultrasound presenting with vaginal bleeding in . Similar episode about a month ago with continued viable . This evening when she went to the bathroom noted dark red blood with wiping; wiped three times and continued to note blood on the toilet paper. No blood in underwear. Did not place panty liner; voided again after presentation the ED with some scant blood on tissue paper (reports less than before). No clots. No cramping currently; has noticed some cramping at night over the past week. Penetrative vaginal intercourse 2 days ago. No vaginal trauma. Not yet feeling the baby move. Aside from episode of bleeding earlier in , uncomplicated thus far. She is otherwise in her usual state of health with no fevers, chills, rash, headache, vomiting, LE edema, dysuria, hematuria, or other concerns. Related Data Home Medications Medication Instructions Recorded Confirmed vitamin#30 30 mg iron-10 1 cap PO BID #90 caps 03/06/24 05/12/24 mg iron-folic acid 1 mg-omg3 capsule metoclopramide HCl 10 mg tablet 10 mg PO Q6H PRN nausea and 03/08/24 05/12/24 (Reglan) vomiting #30 tabs omeprazole 40 mg capsule,delayed 40 mg PO DAILY #60 caps 03/08/24 05/12/24 release ondansetron HCl 4 mg tablet 4 mg PO Q6H PRN nausea and 03/08/24 05/12/24 vomiting #60 tabs promethazine 25 mg rectal 25 mg ND Q6H PRN nausea and 03/08/24 05/12/24 suppository vomiting #12 ea Previous Rx's Medication Instructions Recorded vitamin#30 30 mg iron-10 1 cap PO BID #90 caps 03/06/24 mg iron-folic acid 1 mg-omg3 capsule metoclopramide HCl 10 mg tablet 10 mg PO Q6H PRN nausea and 03/08/24 (Reglan) vomiting #30 tabs omeprazole 40 mg capsule,delayed 40 mg PO DAILY #60 caps 03/08/24 release ondansetron HCl 4 mg tablet 4 mg PO Q6H PRN nausea and 03/08/24 vomiting #60 tabs promethazine 25 mg rectal 25 mg ND Q6H PRN nausea and 03/08/24 suppository vomiting #12 ea Allergies Allergy/AdvReac Type Severity Reaction Status Date / Time No Known Allergies Allergy Unverified 04/18/24 10:26 General Stated 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 Head: Normocephalic, atraumatic Neck: Trachea midline, ?Neck supple. Cardiac: ?RRR, no murmurs appreciated Resp: No respiratory distress. CTAB. Abd: ?Gravid, soft, non-distended, nontender : ?No suprapubic tenderness. No CVA tenderness. Normal external genital exam with no active vaginal bleeding. Extremities: ?No deformities.? No peripheral edema. Neurologic: GCS 15. ? Moves all extremities freely against gravity Course Vital Signs Vital signs: Vital Signs Temperature 36.8 C 05/12/24 21:55 Pulse 98 H 05/12/24 21:55 Respiratory Rate 16 05/12/24 21:55 Blood Pressure 156/82 H 05/12/24 21:55 Pulse Oximetry 98 05/12/24 21:55 Temperature 36.8 C 05/12/24 21:55 Temperature Source Tympanic 05/12/24 21:55 Pulse 98 H 05/12/24 21:55 Respiratory Rate 16 05/12/24 21:55 Respiratory Effort Normal 05/12/24 22:05 Blood Pressure 156/82 H 05/12/24 21:55 Pulse Oximetry 98 05/12/24 21:55 Pain Level 0 05/12/24 22:05 Medical Decision Making 28yo F at 15w 3d gestation with confirmed thomas IUP by early ultrasound presenting with vaginal bleeding in . Similar episode about a month ago with continued viable . This evening scant dark red vaginal bleeding, no cramping currently (some evening cramping for the past week or two). Did have penetrative vaginal intercourse 2 days ago. Vital signs and physical exam reassuring, abdomen non-tender, no active vaginal bleeding. FHT 140's for nursing, at patient request bedside US was performed with FHR 146 and observed movement. Offered pelvic exam which patient declined; does have OB appt scheduled for Wednesday. With prior US, not concerned for ectopic, abdominal exam reassuring against surgical pathology. Labs reviewed as below, CBC with mild thrombocytopenia (plt 105) which is new, CMP with no actionable abnormalities, blood type O+ (no indication for rhogam). Not HELLP. On reassessment she remains well appearing with reassuring vital signs, no further bleeding, no abdominal pain, benign abdominal exam Advised to hold aspirin over the weekend and discuss bloodwork including platelets potassium and at her Wednesday WOOL WASHING MACHINE OPERATOR visit. Discharged home; discharge instructions and return precautions were reviewed with patient who verbalized understanding. All questions were answered and she is in full agreement with the plan. Medical Records Medical records reviewed: Yes I reviewed the patient's medical records. Medical records narrative: ED visit note 04/03/24, prental visit note 04/18/24 Lab Data Lab results reviewed: Yes I reviewed the patient's lab results. Labs: Laboratory Tests Range/Units 05/12/24 22:30 WBC (4.4-10.8) 10^3/uL 8.43 RBC (3.93-5.22) 10^6/uL 3.68 L Hgb (11.2-15.7) g/dL 11.2 Hct (36.0-46.0) % 32.4 L MCV (80-95) fL 88 MCH (27.0-33.0) pg 30.4 MCHC (32.0-36.0) % 34.6 RDW (11.7-14.6) % 12.6 Plt Count (130-400) 10^3/uL 105 L MPV (8.0-11.0) fL 9.7 Immature Gran % % 0.4 Neutrophils % % 68.7 Lymphocytes % % 22.4 Monocytes % % 7.2 Eosinophils % % 1.1 Basophils % % 0.2 Nucleated RBC % (0.0-0.3) % 0.0 Absolute Neutrophils (1.2-6.7) 10^3/uL 5.79 Absolute Lymphocytes (1.2-3.4) 10^3/uL 1.89 Absolute Monocytes (0.1-0.8) 10^3/uL 0.61 Absolute Eosinophils (0.0-0.7) 10^3/uL 0.09 Absolute Basophils (0.0-0.2) 10^3/uL 0.02 Sodium (136-145) mmol/L 140 Potassium (3.5-5.1) mmol/L 3.4 L Chloride (98-107) mmol/L 104 Carbon Dioxide (21.0-32.0) mmol/L 24.6 Anion Gap (3-11) mmol/L 11.4 H BUN (7-18) mg/dL 7 Creatinine (0.55-1.02) mg/dL 0.5 L Est GFR (CKD-EPI 2020) (mL/min/1.73m2) 130.12 Glucose (74-106) mg/dL 96 Calcium (8.5-10.1) mg/dL 9.2 Total Bilirubin (0.2-1.0) mg/dL 0.2 AST (15-37) U/L 9 L ALT (14-59) U/L 19 Alkaline Phosphatase (46-116) U/L 59 Total Protein (6.4-8.2) g/dL 6.5 Albumin (3.4-5.0) g/dL 3.1 L Beta HCG, Quant (1-3) mIU/mL 72549 H ABO/Rh O Positive Antibody Screen NEGATIVE Quality:SDOH Health Related Social Needs: No Data to Display PFSH All Active Problems (Updated 05/12/24 @ 22:50 by Maria Eugenia Castaneda MD) Thrombocytopenia affecting (Acute) , threatened (Acute) Elevated glucose (Acute) Marijuana user (Acute) (Acute) Nausea and vomiting during prior to 22 weeks gestation (Acute) Medical History (Updated 05/12/24 @ 22:50 by Maria Eugenia Castaneda MD) Abnormal uterine bleeding (AUB) test positive Metabolic acidosis, increased anion gap Hypomagnesemia Glucosuria Antepartum bleeding, first trimester No acute medical problems Surgical History No significant past surgical history Family History (Updated 04/18/24 @ 10:36 by Concha Wilde CNM) Mother Asthma ? uses inhaler, is a smoker Diabetes Brother Anxiety Social History (Updated 04/18/24 @ 10:39 by Concha Wilde CNM) Smoking/Tobacco Use Status: Former Tobacco Use tobacco type: e-cigarettes Quit Date: 02/27/22 Smoking risk assessment performed?: Yes Alcohol Intake: current Alcohol Intake frequency: a few times a month Drug use: Current Sobriety Adopted: No Caregiver/Support person: No Foster care: No Household members: significant other Housing: house Communication Needs: None Education Level: high school Do you need help understanding health information?: Never Pets and animals: Yes Pets and animals: cat(s) and dog(s) Sexually active: Yes Do you think of yourself as: straight/heterosexual Current gender identity: male What is your relationship status?: living with partner How often do you talk on the phone with friends or family?: once per week How often do you get together with friends or relatives?: once per week Panel score (0-1 are the most socially isolated patients): 1 What type of physical activity do you participate in: walking Duration: 30-45 minutes/day Frequency: 5-6 times per week Special elsa needs: No Agree to transfusion: Yes Seatbelt use: always Helmet use: No Drive intox or ride w/intox 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 Date GA/Weeks # Preg Succ Route Wgt Sex Labor Lgth Anesthesia Location Prov Complic 09/29/23 6 No No Delivery Date: 09/29/23 Last Updated by: Concha Wilde CNM SAB without complication
[2024-05-12 22:38] LABS: Abs Immature Grans 0.03 10^3/uL (0.0-0.06); Absolute Basophil Count 0.02 10^3/uL (0.0-0.2); Absolute Eosinophil Count 0.09 10^3/uL (0.0-0.7); Absolute Lymphocyte Count 1.89 10^3/uL (1.2-3.4); Absolute Monocyte Count 0.61 10^3/uL (0.1-0.8); Absolute Neutrophil Count 5.79 10^3/uL (1.2-6.7); Basophils % 0.2 %; Eosinophils % 1.1 %; HCT 32.4 % (36.0-46.0); HGB 11.2 g/dL (11.2-15.7); Immature Grans % 0.4 %; Lymphocytes % 22.4 %; MCH 30.4 pg (27.0-33.0); MCHC 34.6 % (32.0-36.0); MCV 88 fL (80-95); MPV 9.7 fL (8.0-11.0); Monocytes % 7.2 %; Neutrophils % 68.7 %; Platelet Count 105 10^3/uL (130-400); RBC 3.68 10^6/uL (3.93-5.22); RDW 12.6 % (11.7-14.6); WBC 8.43 10^3/uL (4.4-10.8)
[2024-05-12 23:15] LABS: ALT 19 U/L (14-59); AST 9 U/L (15-37); Albumin 3.1 g/dL (3.4-5.0); Alkaline Phosphatase 59 U/L (46-116); Anion Gap 11.4 mmol/L (3-11); BUN 7 mg/dL (7-18); Bilirubin, Total 0.2 mg/dL (0.2-1.0); CO2 24.6 mmol/L (21.0-32.0); CREATININE 0.5 mg/dL (0.55-1.02); Calcium 9.2 mg/dL (8.5-10.1); Chloride 104 mmol/L (98-107); Estimated GFR 130.12 (mL/min/1.73m2); Glucose 96 mg/dL (74-106); Potassium 3.4 mmol/L (3.5-5.1); Sodium 140 mmol/L (136-145); Total Protein 6.5 g/dL (6.4-8.2)
[2024-05-12 23:16] LABS: HCG Quant, Pregnancy 22550 mIU/mL (1-3)
[2024-05-12 23:34] VITALS: BP 142/60; PULSE 80; RESP 16; TEMP 36.8; O2SAT 98
== END 2024-05-13 00:19 | disposition home or self-care (01) ==
PROVIDERS: Emergency Provider Student in an Organized Health Care Education/Training Program
DX: O20.0 Threatened abortion (principal); O99.112 Other diseases of the blood and blood-forming organs and certain disorders involving the immune mechanism complicating pregnancy, second trimester; Z87.891 Personal history of nicotine dependence; Z3A.15 15 weeks gestation of pregnancy
CPT/HCPCS: 80053; 86850; 86900; 86901; 99283; 84702; 85025

== ENCOUNTER 2024-05-15 13:11 | Outpatient (REF) | payer OTHER, SELFPAY | END 2024-05-15 13:12 | disposition home or self-care (01) | LOC: LBN 13:11 | PROVIDERS: Visit Provider Advanced Practice Midwife | DX: O46.92 Antepartum hemorrhage, unspecified, second trimester (principal); Z3A.15 15 weeks gestation of pregnancy | CPT/HCPCS: 87480; 87510; 87660 ==

== ENCOUNTER → 2024-05-17 02:57 | Outpatient (CLI) | payer OTHER, SELFPAY ==
--- NOTE | 2024-05-17 08:30 | DI.US_ITS ---
Exam(s) US OB SABAS WEIGHT EXAM: US OB SABAS WEIGHT CLINICAL HISTORY: second trimester bleeding, O46.92. TECHNIQUE: Transabdominal obstetrical ultrasound performed. COMPARISON: US US OB 1ST TRIMESTER from 04/10/2024 FINDINGS:: Number of fetuses: One. position: Variable Placental location: Posterior. No evidence of previa. Placenta appears intact. BIOMETRIC DATA: BPD: 36mm = 17+ 0 weeks HC: 129mm = 16+ 4 weeks AC: 109mm = 16 + 6 weeks FL: 23 mm = 16+ 5 weeks EFW: 169 Gms = 83% Composite Age: 16+ 6 weeks ANEESH: 26 October 2024 Heart Rate: 124BPM Amniotic fluid index: 12 cm. Amount of fluid is visually within normal limits. IMPRESSION: size and weight are within the expected range. Intact posterior placenta without evidence of previa. DATA REPOSITORY:
== END ==
PROVIDERS: Visit Provider Advanced Practice Midwife
DX: O46.92 Antepartum hemorrhage, unspecified, second trimester (principal); Z3A.16 16 weeks gestation of pregnancy
CPT/HCPCS: 76816

== ENCOUNTER 2024-05-19 01:25 | Outpatient (CLI) | payer OTHER, SELFPAY ==
[2024-05-19 12:27] LABS: HCT 34.5 % (36.0-46.0); HGB 11.9 g/dL (11.2-15.7); MCH 30.5 pg (27.0-33.0); MCHC 34.5 % (32.0-36.0); MCV 89 fL (80-95); MPV 10.4 fL (8.0-11.0); Platelet Count 120 10^3/uL (130-400); RDW 12.9 % (11.7-14.6); WBC 8.18 10^3/uL (4.4-10.8)
== END 2024-05-19 01:26 | disposition home or self-care (01) ==
LOC: LBO 01:25
PROVIDERS: Visit Provider Advanced Practice Midwife
DX: Z34.92 Encounter for supervision of normal pregnancy, unspecified, second trimester (principal); Z3A.15 15 weeks gestation of pregnancy
CPT/HCPCS: 36415; 85027

== ENCOUNTER 2024-06-15 11:37 | Outpatient (CLI) | payer OTHER, SELFPAY ==
[2024-06-15 11:56] LABS: HCT 34.7 % (36.0-46.0); HGB 12.1 g/dL (11.2-15.7); MCH 30.9 pg (27.0-33.0); MCHC 34.9 % (32.0-36.0); MCV 89 fL (80-95); MPV 10.3 fL (8.0-11.0); Platelet Count 104 10^3/uL (130-400); RBC 3.92 10^6/uL (3.93-5.22); RDW 12.9 % (11.7-14.6); RDW-SD 41.6 fL; WBC 10.11 10^3/uL (4.4-10.8)
== END 2024-06-15 11:38 | disposition home or self-care (01) ==
LOC: LBO 11:38
PROVIDERS: Visit Provider Advanced Practice Midwife
DX: O99.119 Other diseases of the blood and blood-forming organs and certain disorders involving the immune mechanism complicating pregnancy, unspecified trimester (principal); D69.6 Thrombocytopenia, unspecified; Z34.91 Encounter for supervision of normal pregnancy, unspecified, first trimester
CPT/HCPCS: 36415; 85027

== ENCOUNTER 2024-07-13 18:17 | Outpatient (CLI) | payer OTHER, SELFPAY ==
[2024-07-13 17:05] LABS: HCT 31.9 % (36.0-46.0); HGB 10.9 g/dL (11.2-15.7); MCH 30.7 pg (27.0-33.0); MCHC 34.2 % (32.0-36.0); MCV 90 fL (80-95); MPV 10.4 fL (8.0-11.0); Platelet Count 105 10^3/uL (130-400); RBC 3.55 10^6/uL (3.93-5.22); RDW 12.6 % (11.7-14.6); RDW-SD 41.6 fL; WBC 10.05 10^3/uL (4.4-10.8)
--- OUTSIDE RECORDS SUMMARY | 2024-07-13 18:19 | XMS_ITS | Encounter Summary ---
[place] [address] Care Team Providers Care Jacquard Loom Weaver Name Role Phone None Primary Care Provider Unavailabl e Encounter Details Date Type Department Care Team (Late st Contact Info) Description 05/12/2017 Orders [place] [address] Lanie Moe RN Other fracture of first cervical vertebra Social History Tobacco Use Types Packs/Day Years Used Date Smoking Tobacco: Never Assessed Sex and Gender Information Value Date Recorded Sex Assigned at Not on file Gender Identity Not on file Sexual Orientation Not on file documented as of this encounter Progress Notes * Lanie Moe RN - 05/12/2017 12:58 PM EDT Imaging ordered as authorized by Dr. Alex. Patient had previously contacted the clinic for her appointment. Scheduling staff was notified that the imaging was ordered. documented in this encounter Plan of Treatment Not on file documented as of this encounter Results * XR Cervical Spine 2 Or 3 Views (06/03/2017 2:14 PM EDT) Anatomical Region Laterality Modality C-spine N/A Digital Radiogra phy Impressions 06/03/2017 4:40 PM EDT Tiny osseous fragment posterior to the posterior arch of C1 appears unchanged but not optimally evaluated. Consider serial limited CT follow-up if indicated. I have personally reviewed the image(s) and the residents interpretation and agree with the findings, Luz Maria Velásquez at 06/03/2017 4:40 PM Narrative 06/03/2017 4:40 PM EDT EXAMINATION: XR CERVICAL SPINE 2 OR 3 VIEWS CLINICAL HISTORY: fracture posterior aspect of L C1 lateral mass ( ap and lateral) TECHNIQUE: Standing AP, lateral, and odontoid views of the cervical spine COMPARISON: 05/06/[address] FINDINGS: The tiny osseous fragment posterior to the posterior arch of C1 likely corresponds to the small fracture fragment documented on recent CT scan. There is straightening of the normal cervical lordosis, likely positional. Intervertebral disc spaces and vertebral body heights are normal. No vertebral or facet arthropathy is identified. Procedure Note Luz Maria Velásquez MD - 06/03/2017 EXAMINATION: XR CERVICAL SPINE 2 OR 3 VIEWS CLINICAL HISTORY: fracture posterior aspect of L C1 lateral mass ( apand lateral) TECHNIQUE: Standing AP, lateral, and odontoid views of the cervical spine COMPARISON: 05/06/[address] FINDINGS: The tiny osseous fragment posterior to the posterior arch of C1 likely corresponds to the small fracture fragment documented on recent CT scan.There is straightening of the normal cervical lordosis, likely positional. Intervertebral disc spaces and vertebral body heights are normal. Novertebral or facet arthropathy is identified. IMPRESSION Tiny osseous fragment posterior to the posterior arch of C1 appearsunchanged but not optimally evaluated. Consider serial limited CT follow-up ifindicated. I have personally reviewed the image(s) and the residents interpretationand agree with the findings, Luz Maria Velásquez at 06/03/2017 4:40 PM Sergio Alex MD IMG DX ORDERABLES documented in this encounter Visit Diagnoses Diagnosis Other fracture of first cervical vertebra Other fracture of first cervical vertebra documented in this encounter Care Teams Jacquard Loom Weaver Relationship Specialty Start Date End Date None None PCP - General 05/07/17 documented as of this encounter
--- OUTSIDE RECORDS SUMMARY | 2024-07-13 18:19 | XMS_ITS | Continuity of Care Document ---
Author Organization [facility] Address [address] [place] [address] [id number] Date(s): 03/06/24 - 03/06/24 [facility] [address], [place] [address] Social History Social History Type Response Sex Female Patient Care team information Care Team Related Persons Name: KUN DEL VALLE
--- OUTSIDE RECORDS SUMMARY | 2024-07-13 18:19 | XMS_ITS | Encounter Summary ---
Author Organization [place] [address] Care Team Providers Care Char Filter Tank Tender Name Role Phone None Primary Care Provider Unavailabl e Encounter Details Date Type Department Care Team (Latest Contact Info) Description 05/07/2017 3:39 AM EDT - 05/07/2017 11:59 PM EDT Hospital Encounter [place] [id number] Discharge Disposition: Home Social History Tobacco Use Types Packs/Day Years Used Date Smoking Tobacco: Never Assessed Sex and Gender Information Value Date Recorded Sex Assigned at Not on file Gender Identity Not on file Sexual Orientation Not on file documented as of this encounter Medications at Time of Discharge Medication Sig Dispensed Refills Start Date End Date acetaminophen (TYLENOL) 500 mg Tablet Take 2 tablets by mouth every 6 hours. 30 tablet 1 05/07/2017 bisacodyl (DULCOLAX) 5 mg Tablet, Delayed Release (E.C.) Take 2 tablets by mouth 2 times daily as needed for Constipation. 30 tablet 05/07/2017 06/03/2017 polyethylene glycol (MIRALAX) 17 gram Powder in Packet Take 17 g by mouth daily as needed. 14 each 05/07/2017 06/03/2017 senna-docusate (PERICOLACE) 8.6-50 mg Tablet Take 2 tablets by mouth 2 times daily. 60 tablet 11 05/07/2017 06/03/2017 documented as of this encounter Plan of Treatment Not on file documented as of this encounter Procedures Procedure Name Priority Date/Time Associated Diagnosis Comments REQUEST FOR 2ND READ CT HEAD AND SPINE STAT 05/07/2017 3:40 AM EDT documented in this encounter Results * Request For 2nd Read CT Head And Spine (05/07/2017 3:40 AM EDT) Anatomical Region Laterality Modality Head, C-spine, T-spine, L-spine SO Impressions 05/07/2017 4:50 AM EDT 1. ??No acute intracranial hemorrhage. 2. ??No calvarial or facial bone fracture. 3. ??Minimally displaced fracture of the superior posterior lateral mass of C1. I have personally reviewed the image(s) and the residents interpretation and agree with the findings, Jenni Guevara at 05/07/2017 4:50 AM Narrative 05/07/2017 4:50 AM EDT EXAMINATION: REQUEST FOR 2ND READ CT HEAD, FACE AND SPINE CLINICAL HISTORY: trauma; What Modality is the exam? CT Scan; Body Part (please add comments as necessary): Head & Cspine & Face; I believe a reinterpretation of this exam may alter care of Patient. Yes TECHNIQUE: Reinterpretation request for a CT head, face and cervical spine without contrast from [facility] performed at 2211 hours. COMPARISON: None FINDINGS: Head: No acute intracranial hemorrhage or extra-axial fluid collection. Elliott-white matter differentiation is preserved. No mass or mass effect. The ventricles are symmetric and normal in caliber. The basal cisterns are patent. No acute calvarial fracture or extracalvarial swelling or hematoma. Mastoid air cells are clear. Face: There are no facial bone fractures. The orbits are unremarkable. No air-fluid levels or debris within the sinuses to suggest an occult fracture.. No soft tissue swelling or laceration. Cervical spine: Minimally displaced fracture of the superior posterior aspect of the left lateral mass of C1 (series 20 image 20 and series 14 image 91). The craniocervical junction remains intact. The vertebral body heights and intervertebral disc spaces are maintained. The spinal canal is patent. No prevertebral soft tissue swelling. No paraspinal soft tissue swelling. The visualized airways are patent. Procedure Note Jenni Guevara MD - 05/07/2017 EXAMINATION: REQUEST FOR 2ND READ CT HEAD, FACE AND SPINE CLINICAL HISTORY: trauma; What Modality is the exam? CT Scan; Body Part(please add comments as necessary): Head & Cspine & Face; I believe a reinterpretation of this exam may alter care of Patient. Yes TECHNIQUE: Reinterpretation request for a CT head, face and cervicalspine without contrast from [facility] performed at 2211hours. COMPARISON: None FINDINGS: Head: No acute intracranial hemorrhage or extra-axial fluid collection. Elliott-white matter differentiation is preserved. No mass or mass effect.The ventricles are symmetric and normal in caliber. The basal cisterns arepatent. No acute calvarial fracture or extracalvarial swelling or hematoma.Mastoid air cells are clear. Face: There are no facial bone fractures. The orbits are unremarkable.No air-fluid levels or debris within the sinuses to suggest an occultfracture.. No soft tissue swelling or laceration. Cervical spine: Minimally displaced fracture of the superior posterioraspect of the left lateral mass of C1 (series 20 image 20 and series 14 image 91).The craniocervical junction remains intact. The vertebral body heights and intervertebral disc spaces are maintained. The spinal canal is patent.No prevertebral soft tissue swelling. No paraspinal soft tissue swelling.The visualized airways are patent. IMPRESSION 1. No acute intracranial hemorrhage. 2. No calvarial or facial bone fracture. 3. Minimally displaced fracture of the superior posterior lateral mass ofC1. I have personally reviewed the image(s) and the residents interpretationand agree with the findings, Jenni Guevara at 05/07/2017 4:50 AM Felicia Turpin MD IMG OUTSIDE INTERPR ETATION ORDERABLES documented in this encounter Visit Diagnoses Not on filedocumented in this encounter Care Teams Char Filter Tank Tender Relationship Specialty Start Date End Date None None PCP - General 05/07/17 documented as of this encounter
--- OUTSIDE RECORDS SUMMARY | 2024-07-13 18:19 | XMS_ITS | Encounter Summary ---
Author Organization [facility] [place] [address] Care Team Providers Care Book Mender Name Role Phone None Primary Care Provider Unavailabl e Encounter Details Date Type Department Care Team (Latest Contact Info) Description 05/07/2017 - 05/07/2017 1:59 AM EDT Hospital Encounter [place] [id number] Discharge Disposition: Home Social History Tobacco Use [...] Procedure Name Priority Date/Time Associated Diagnosis Comments FILM LIBRARY STORAGE ONLY CT SPINE STAT 05/07/2017 12:00 AM EDT documented in this encounter Results * Film Library- Storage Only CT Spine (05/07/2017 12:00 AM EDT) Narrative [facility] - 05/07/2017 3:01 AM EDT This exam is for storage only and is auto-finalizing. Chris Turpin MD IMG FILM LIBRARY ORD ERABLES JEROD [place], [place] documented in this encounter Visit Diagnoses Not on filedocumented in this encounter Care Teams Book Mender Relationship Specialty Start Date End Date None None PCP - General 05/07/17 documented as of this encounter
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
--- OUTSIDE RECORDS SUMMARY | 2024-07-13 18:19 | XMS_ITS | Encounter Summary ---
Author Organization [facility] Address [address] [place] [address] Care Team Providers Care Farm Implement Mechanic Name Role Phone Unavailable Primary Care Provider Unavailabl e Encounter Details Date Type Department Care Team (Late st Contact Info) Description 04/18/2024 Lab Requisition [facility] Pathology & Laboratory Medicine - [facility] [address], [place] [address] Outr Resulting Lab, Provider Social History Tobacco Use Types Packs/Day Years Used Date Smoking Tobacco: Never Assessed Sex and Gender Information Value Date Recorded Sex Assigned at Not on file Gender Identity Not on file Sexual Orientation Not on file documented as of this encounter Plan of Treatment Not on file documented as of this encounter Procedures Procedure Name Priority Date/Time Associated Diagnosis Comments HIV 1/2 ANTIGEN AND ANTIBODY, 4TH GENERATION Routine 04/18/2024 11:53 EDT documented in this encounter Results * HIV 1/2 ANTIGEN AND ANTIBODY, 4TH GENERATION (04/18/2024 11:53 EDT) HIV 1 and 2 Antibody/p24 Antigen, 4th Generation Negative Negative 04/19/2024 9:38 EDT [facility] Comment:If acute HIV-1 infec tion is suspected in a high risk patient, submit plasma specimen for HIV-1 RNA quantitation test. Blood VENOUS BLOOD / Unknown 04/18/2024 11:53 EDT 04/18/2024 21:46 EDT Narrative [facility] - 04/19/2024 9:38 EDT Fourth Generation assay performed on the Siemens PureLiFiaur XPT. Provider Outr Resulting Lab IMMUNOLOGY A ND SEROLOGY ORDERABLES [facility] [address] [place] [address] documented in this encounter Visit Diagnoses Not on filedocumented in this encounter
--- OUTSIDE RECORDS SUMMARY | 2024-07-13 18:19 | XMS_ITS | Encounter Summary ---
Author Organization [facility] Address [address] [place] [address] Care Team Providers Care Patient Appointment Coordinator Name Role Phone Unavailable Primary Care Provider Unavailabl e Encounter Details Date Type Department Care Team (Late st Contact Info) Description 04/18/2024 Lab Requisition [facility] Pathology & Laboratory Medicine - [facility] [address] [place], [place] [id number] Outr Resulting Lab, Provider Social History Tobacco [...] Procedure Name Priority Date/Time Associated Diagnosis Comments RUBELLA IGG ANTIBODY Routine 04/18/2024 11:53 EDT VARICELLA IGG ANTIBODY Routine 04/18/2024 11:53 EDT documented in this encounter Results * VARICELLA IGG ANTIBODY (04/18/2024 11:53 EDT) Varicella IgG Ab Positive See Note 04/19/2024 10:[address] [facility] Comment:Presence of detectab le Varicella Zoster virus IgG antibodies. Blood VENOUS BLOOD / Unknown 04/18/2024 11:53 EDT 04/18/2024 21:46 EDT Provider Outr Resulting Lab IMMUNOLOGY A ND SEROLOGY ORDERABLES [facility] [address] [place], [place] [phone] * RUBELLA IGG ANTIBODY (04/18/2024 11:53 EDT) Rubella IgG Ab Negative See Note 04/19/2024 16:[address] [facility] Comment:Sample is considered negative for IgG antibodies to Rubella virus. A negative result presumes that immunity has not been acquired. If exposure to Rubella virus is suspected despite a negative finding, a second specimen should be collected and tested for Rubella IgG Ab one or two weeks later. Blood VENOUS BLOOD / Unknown 04/18/2024 11:53 EDT 04/18/2024 21:46 EDT Provider Outr Resulting Lab CHEMISTRY & BLOOD GAS ORDERABLES [facility] [address] [place], [place] [phone] documented in this encounter Visit Diagnoses Not on filedocumented in this encounter
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
--- OUTSIDE RECORDS SUMMARY | 2024-07-13 18:19 | XMS_ITS | Referral Summary ---
Author Organization [facility] Address [address] [place] [address] Care Team Providers Care Lumber Grader Name Role Phone Unavailable Primary Care Provider Unavailabl e Encounters Date Type Department Care Team Description 04/20/2024 Lab Requisition [facility] Pathology & Laboratory [address] [address] Concha Wilde APN Encounter for supervision of normal , unspecified, first trimester 04/18/2024 Lab Requisition [facility] Pathology & Laboratory [address] [address] Outr Resulting Lab, Provider 04/18/2024 Lab Requisition [facility] Pathology & Laboratory [address] [address] Outr Resulting Lab, Provider 04/18/2024 Lab Requisition [facility] Pathology & Laboratory [address] [address] Outr Resulting Lab, Provider 04/18/2024 Lab Requisition [facility] Pathology & Laboratory [address] [address] Outr Resulting Lab, Provider from Last 3 Months Social History Tobacco Use Types Packs/Day Years Used Date Smoking Tobacco: Never Assessed Sex and Gender Information Value Date Recorded Sex Assigned at Not on file Gender Identity Not on file Sexual Orientation Not on file Plan of Treatment Not on file Procedures Procedure Name Priority Date/Time Associated Diagnosis Comments HEPATITIS B SURFACE ANTIGEN Routine 04/18/2024 11:53 EDT HEPATITIS C AB W REFLEX TO HCV RNA BY PCR Routine 04/18/2024 11:53 EDT VARICELLA IGG ANTIBODY Routine 04/18/2024 11:53 EDT RUBELLA IGG ANTIBODY Routine 04/18/2024 11:53 EDT HIV 1/2 ANTIGEN AND ANTIBODY, 4TH GENERATION Routine 04/18/2024 11:53 EDT PAP TEST Today 04/18/2024 11:00 EDT Encounter for supervision of normal , unspecified, first trimester CHLAMYDIA/N. GONORRHOEAE AMPLIFIED NUCLEIC ACID, THINPREP Routine 04/18/2024 11:00 EDT from Last 3 Months Results * HEPATITIS C AB W REFLEX TO HCV RNA BY PCR (04/18/2024 11:53 EDT) Hep C Antibody Negative Negative 04/19/2024 9:[address] [facility] Blood VENOUS BLOOD / Unknown 04/18/2024 11:53 EDT 04/18/2024 21:46 EDT Provider Outr Resulting Lab CHEMISTRY & BLOOD GAS ORDERABLES [facility] [address] [place] [phone] * RUBELLA IGG ANTIBODY (04/18/2024 11:53 EDT) Rubella IgG Ab Negative See Note 04/19/2024 16:[address] [facility] Comment:Sample is considered negative for [...] Lab CHEMISTRY & BLOOD GAS ORDERABLES [facility] [address] [place], [place] [address] * HEPATITIS B SURFACE ANTIGEN (04/18/2024 11:53 EDT) Hep B Surface Ag Negative Negative 04/19/2024 9:[address] [facility] Blood VENOUS BLOOD / Unknown 04/18/2024 11:53 EDT 04/18/2024 21:46 EDT Provider Outr Resulting Lab CHEMISTRY & BLOOD GAS ORDERABLES Performing Organization Address [facility] Co de Phone Number [facility] [address], [place] [address] * VARICELLA IGG ANTIBODY (04/18/2024 11:53 EDT) Varicella IgG Ab Positive See Note 04/19/2024 10:[address] [facility] Comment:Presence of detectab le Varicella Zoster virus IgG antibodies. Blood VENOUS BLOOD / Unknown 04/18/2024 11:53 EDT 04/18/2024 21:46 EDT Provider Outr Resulting Lab IMMUNOLOGY A ND SEROLOGY ORDERABLES Performing Organization Address [facility] Co de Phone Number [facility] [address], [place] [phone] * HIV 1/2 ANTIGEN AND ANTIBODY, 4TH GENERATION (04/18/2024 11:53 EDT) HIV 1 and 2 Antibody/p24 Antigen, 4th Generation Negative Negative 04/19/2024 9:[address] [facility] Comment:If acute HIV-1 infec tion is suspected in a high risk patient, submit plasma specimen for HIV-1 RNA quantitation test. Blood VENOUS BLOOD / Unknown 04/18/2024 11:53 EDT 04/18/2024 21:[address] [facility] - 04/19/2024 9:38 EDT Fourth Generation assay performed on the Siemens Centaur XPT. Provider Outr Resulting Lab IMMUNOLOGY A ND SEROLOGY ORDERABLES Performing Organization Address [facility]/ZIP Co de Phone Number [facility] [address], [place] [phone] * PAP TEST (04/18/2024 11:00 EDT) Specimens A. Cervix and/or Endocervix , ThinPrep Imaging System with Manual Evaluation 05/01/2024 10:[address] [facility] Specimen Adequacy Satisfactory for Evaluation - transformation zone component absent 05/01/2024 10:[address] [facility] General Categorization Negative for intraepithelial lesion or malignancy 05/01/2024 10:[address] [facility] Attestation . 05/01/2024 10:[address] [facility] at 1006 Clinical History See below 05/01/20 10:[address] [facility] Performing Lab [facility] 05/01/2024 10:[address] [facility] Scanned Images 05/01/2024 10:[address] [facility] Pap Test CERVIX UTERI STRUCTURE / Unknown 04/18/2024 11:00 EDT 04/20/2024 8:37 EDT Concha Wilde APN PATHOLOGY ORDERAB LES Performing Organization Address City/[facility]/ZIP Co de Phone Number [facility] [address] [place], [place] [address] * CHLAMYDIA/N. GONORRHOEAE AMPLIFIED RNA, THINPREP (04/18/2024 11:00 EDT) Neisseria gonorrhoeae Result Negative Negative 04/19/2024 15:[address] [facility] Chlamydia trachomatis Result Negative Negative 04/19/2024 15:[address] [facility] Pap Test CERVIX UTERI STRUCTURE / Unknown 04/18/2024 11:00 EDT 04/19/2024 11:27 EDT Provider Outr Resulting Lab MICROBIOLOGY - GENERAL ORDERABLES [facility] [address] [place] [phone] from Last 3 Months
--- OUTSIDE RECORDS SUMMARY | 2024-07-13 18:19 | XMS_ITS | Clinical Summary ---
Author Organization [facility] Address [address] [place] [address] Care Team Providers Care Meter Readers Supervisor Name Role Phone Unavailable Primary Care Provider Unavailabl e Encounters Date Type Department Care Team Description 04/20/2024 Lab Requisition [facility] Pathology & Laboratory [address] [address] Concha Wilde APN Encounter for supervision of normal , unspecified, first trimester 04/18/2024 Lab Requisition [facility] Pathology & Laboratory [address] [address] Outr Resulting Lab, Provider 04/18/2024 Lab Requisition [facility] Pathology & Laboratory [address] [address] Outr Resulting Lab, Provider 04/18/2024 Lab Requisition [facility] Pathology & Laboratory [address] [address] Outr Resulting Lab, Provider 04/18/2024 Lab Requisition [facility] Pathology & Laboratory [address] [address] Outr Resulting Lab, Provider from Last 3 Months Social History Tobacco Use Types Packs/Day Years Used Date Smoking Tobacco: Never Assessed Sex and Gender Information Value Date Recorded Sex Assigned at Not on file Gender Identity Not on file Sexual Orientation Not on file Plan of Treatment Health Maintenance Due Date Last Done Comments Hepatitis B Vaccine (1 of 3 - 19+ 3-dose series) 08/17 COVID-19 Vaccine (2022- season) 2023 Hepatitis C Screen Completed 04/18/2024 Procedures Procedure Name Priority Date/Time Associated Diagnosis [...] C Antibody Negative Negative 04/19/2024 9:29 EDT [facility] Blood VENOUS BLOOD / Unknown 04/18/2024 11:53 EDT 04/18/2024 21:46 EDT Provider Outr Resulting Lab CHEMISTRY & BLOOD GAS ORDERABLES [facility] [address] [place] [id number] * RUBELLA IGG ANTIBODY (04/18/2024 11:53 EDT) Rubella IgG Ab Negative See Note 04/19/2024 16:15 EDT [facility] Comment:Sample is considered negative [...] Organization Address [facility]/ZIP Co de Phone Number [facility] [address] [place], [place] [phone] * HEPATITIS B SURFACE ANTIGEN (04/18/2024 11:53 EDT) Hep B Surface Ag Negative Negative 04/19/2024 9:03 EDT [facility] Blood VENOUS BLOOD / Unknown 04/18/2024 11:53 EDT 04/18/2024 21:46 EDT Provider Outr Resulting Lab CHEMISTRY & BLOOD GAS ORDERABLES Performing Organization Address [facility] de Phone Number [facility] [address] [place], [place] [phone] * VARICELLA IGG ANTIBODY (04/18/2024 11:53 EDT) Varicella IgG Ab Positive See Note 04/19/2024 10:16 EDT [facility] Comment:Presence of detectab le Varicella Zoster virus IgG antibodies. Blood VENOUS BLOOD / Unknown 04/18/2024 11:53 EDT 04/18/2024 21:46 EDT Provider Outr Resulting Lab IMMUNOLOGY A ND SEROLOGY ORDERABLES Performing Organization Address [facility] Co de Phone Number [facility] [address] [place], [place] [phone] * HIV 1/2 ANTIGEN AND ANTIBODY, 4TH GENERATION (04/18/2024 11:53 EDT) HIV 1 and 2 Antibody/p24 Antigen, 4th Generation Negative Negative 04/19/2024 9:38 EDT [facility] Comment:If acute HIV-1 infec tion is suspected in a high risk patient, submit plasma specimen for HIV-1 RNA quantitation test. Blood VENOUS BLOOD / Unknown 04/18/2024 11:53 EDT 04/18/2024 21:46 EDT Narrative [facility] - 04/19/2024 9:38 EDT Fourth Generation assay performed on the Siemens Centaur XPT. Provider Outr Resulting Lab IMMUNOLOGY A ND SEROLOGY ORDERABLES Performing Organization Address City/[facility]/ZIP Co de Phone Number [facility] [address], [place] [phone] * PAP TEST (04/18/2024 11:00 EDT) Specimens A. Cervix and/or Endocervix , ThinPrep Imaging System with Manual Evaluation 05/01/2024 10:06 EDT [facility] Specimen Adequacy Satisfactory for Evaluation - transformation zone component absent 05/01/2024 10:06 EDT [facility] General Categorization Negative for intraepithelial lesion or malignancy 05/01/2024 10:06 EDT [facility] Attestation . 05/01/2024 10:06 EDT [facility] at 1006 Clinical History See below 05/01/20 10:06 EDT [facility] Performing Lab [facility] 05/01/2024 10:06 EDT [facility] Scanned Images 05/01/2024 10:06 EDT [facility] Pap Test CERVIX UTERI STRUCTURE / Unknown 04/18/2024 11:00 EDT 04/20/2024 8:37 EDT Concha Wilde APN PATHOLOGY ORDERAB LES Performing Organization Address [facility]/ZIP Co de Phone Number [facility] [address] [place] [address] * CHLAMYDIA/N. GONORRHOEAE AMPLIFIED RNA, THINPREP (04/18/2024 11:00 EDT) Neisseria gonorrhoeae Result Negative Negative 04/19/2024 15:24 EDT [facility] Chlamydia trachomatis Result Negative Negative 04/19/2024 15:24 EDT [facility] Pap Test CERVIX UTERI STRUCTURE / Unknown 04/18/2024 11:00 EDT 04/19/2024 11:27 EDT Provider Outr Resulting Lab MICROBIOLOGY - GENERAL ORDERABLES [facility] [address], [place] [phone] from Last 3 Months
--- OUTSIDE RECORDS SUMMARY | 2024-07-13 18:19 | XMS_ITS | Encounter Summary ---
Author Organization [facility] Address [address] [place] [address] Care Team Providers Care Organ Builder Name Role Phone Unavailable Primary Care Provider Unavailabl e Encounter Details Date Type Department Care Team (Late st Contact Info) Description 04/20/2024 Lab Requisition [facility] Pathology & Laboratory Medicine - [address] [address] Concha Wilde, SHOP TAILOR APPRENTICE [address] [place] [address] Encounter for supervision of normal , unspecified, first trimester Social History Tobacco Use Types Packs/Day Years Used Date Smoking Tobacco: Never Assessed Sex and Gender Information Value Date Recorded Sex Assigned at Not on file Gender Identity Not on file Sexual Orientation Not on file documented as of this encounter Plan of Treatment Not on file documented as of this encounter Procedures Procedure Name Priority Date/Time Associated Diagnosis Comments PAP TEST Today 04/18/2024 11:00 EDT Encounter for supervision of normal , unspecified, first trimester documented in this encounter Results * PAP TEST (04/18/2024 11:00 EDT) Specimens A. Cervix and/or Endocervix , ThinPrep Imaging System with Manual Evaluation 05/01/2024 10:06 T [facility] Specimen Adequacy Satisfactory for Evaluation - transformation zone component absent 05/01/2024 10:06 T [facility] General Categorization Negative for intraepithelial lesion or malignancy 05/01/2024 10:06 T [facility] Attestation . 05/01/2024 10:06 [facility] at 1006 Clinical History See below 05/01/20 10:06 EDT [facility] Performing Lab [facility] 05/01/2024 10:06 EDT [facility] Scanned Images 05/01/2024 10:06 EDT [facility] Pap Test CERVIX UTERI STRUCTURE / Unknown 04/18/2024 11:00 EDT 04/20/2024 8:37 EDT Concha Wilde APN PATHOLOGY ORDERAB LES [facility] [address] [place], [place] [phone] documented in this encounter Visit Diagnoses Diagnosis Encounter for supervision of normal , unspecified, first trimester documented in this encounter
--- OUTSIDE RECORDS SUMMARY | 2024-07-13 18:19 | XMS_ITS | Clinical Summary ---
Author Organization [facility] [place] [address] Care Team Providers Care Gun Fitter Name Role Phone None Primary Care Provider Unavailabl e Allergies No known active allergies Medications Medication Sig Dispensed Refills Start Date End Date Status acetaminophen (TYLENOL) 500 mg Tablet Take 2 tablets by mouth every 6 hours. 30 tablet 1 05/07/2017 Active Active Problems Problem Noted Date Diagnosed Date C1 cervical fracture 05/07/2017 Immunizations Name Administration Dates Next Due Tdap 05/07/2017 Social History Tobacco Use Types Packs/Day Years Used Date Smoking Tobacco: Every Day Cigarettes Smokeless Tobacco: Never Sex and Gender Information Value Date Recorded Sex Assigned at Not on file Gender Identity Not on file Sexual Orientation Not on file Last Filed Vital Signs Vital Sign Reading Time Taken Comments Blood Pressure 118/60 06/03/2017 2:25 PM EDT Pulse 85 05/07/2017 2:30 PM EDT Temperature 37.4 ??C (99.3 ??F) 05/07/2017 2:30 PM ED T Respiratory Rate 18 05/07/2017 2:30 PM EDT Oxygen Saturation 98% 05/07/2017 2:30 PM EDT Inhaled Oxygen Concentration - - Weight 61.2 kg (135 lb) 06/03/2017 2:25 PM EDT Height 163.8 cm (5' 4.5) 06/03/2017 2:25 PM EDT Body Mass Index 22.81 06/03/2017 2:25 PM EDT Plan of Treatment Health Maintenance Due Date Last Done Comments HIV screen 2012 Hepatitis C Screening 2012 Lipid Screening 2012 Hepatitis B vaccine (0-59 yrs) (1) 2013 PAP Smear 2015 Covid-19 Vaccine ( season) 2023 Influenza (Flu) vaccine (1 o f 1 - Influenza standard series) 07/30/2024 Tetanus vaccine 05/07/2027 05/07/2017 Tdap adult Completed 05/07/2017 Advance Directives * Full Code (Latest Code Status on File) Date Activated Date Inactivated Comments 05/07/2017 5:02 AM 05/07/2017 4:51 PM Question Answer Comments Does patient have capacity to make decision: Yes Care Teams Gun Fitter Relationship Specialty Start Date End Date None None PCP - General 05/07/17
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
--- OUTSIDE RECORDS SUMMARY | 2024-07-13 18:19 | XMS_ITS | Encounter Summary ---
Author Organization [facility] Address [address] [place] [address] Care Team Providers Care Pizza Delivery Driver Name Role Phone Unavailable Primary Care Provider Unavailabl e Encounter Details Date Type Department Care Team (Late st Contact Info) Description 04/18/2024 Lab Requisition [facility] Pathology & Laboratory Medicine - [address] [id number] Outr Resulting Lab, Provider Social History Tobacco [...] Procedure Name Priority Date/Time Associated Diagnosis Comments CHLAMYDIA/N. GONORRHOEAE AMPLIFIED NUCLEIC ACID, THINPREP Routine 04/18/2024 11:00 EDT documented in this encounter Results * CHLAMYDIA/N. GONORRHOEAE AMPLIFIED RNA, THINPREP (04/18/2024 11:00 EDT) Neisseria gonorrhoeae Result Negative Negative 04/19/2024 15:[address] [facility] Chlamydia trachomatis Result Negative Negative 04/19/2024 15:[address] [facility] Pap Test CERVIX UTERI STRUCTURE / Unknown 04/18/2024 11:00 EDT 04/19/2024 11:27 EDT Provider Outr Resulting Lab MICROBIOLOGY - GENERAL ORDERABLES [facility] [address] [place], [place] [phone] documented in this encounter Visit Diagnoses Not on filedocumented in this encounter
--- OUTSIDE RECORDS SUMMARY | 2024-07-13 18:19 | XMS_ITS | Encounter Summary ---
Author Organization [facility] Address [address] [place] [address] Care Team Providers Care Director Museum Or Zoo Name Role Phone Unavailable Primary Care Provider Unavailabl e Encounter Details Date Type Department Care Team (Late st Contact Info) Description 04/18/2024 Lab Requisition [facility] Pathology & Laboratory Medicine - [address] [phone] Outr Resulting Lab, Provider Social History Tobacco [...] Name Priority Date/Time Associated Diagnosis Comments HEPATITIS C AB W REFLEX TO HCV RNA BY PCR Routine 04/18/2024 11:53 EDT HEPATITIS B SURFACE ANTIGEN Routine 04/18/2024 11:53 EDT documented in this encounter Results * HEPATITIS B SURFACE ANTIGEN (04/18/2024 11:53 EDT) Hep B Surface Ag Negative Negative 04/19/2024 9:03 EDT [facility] Blood VENOUS BLOOD / Unknown 04/18/2024 11:53 EDT 04/18/2024 21:46 EDT Provider Outr Resulting Lab CHEMISTRY & BLOOD GAS ORDERABLES [facility] [address] [place], [place] [phone] * HEPATITIS C AB W REFLEX TO HCV RNA BY PCR (04/18/2024 11:53 EDT) Hep C Antibody Negative Negative 04/19/2024 9:29 EDT [facility] Blood VENOUS BLOOD / Unknown 04/18/2024 11:53 EDT 04/18/2024 21:46 EDT Provider Outr Resulting Lab CHEMISTRY & BLOOD GAS ORDERABLES [facility] [address] [place], [place] [phone] documented in this encounter Visit Diagnoses Not on filedocumented in this encounter
--- OUTSIDE RECORDS SUMMARY | 2024-07-13 18:19 | XMS_ITS | Encounter Summary ---
Author Organization [facility] Address [facility] [place] [address] Care Team Providers Care Shaper Machine Hand Name Role Phone None Primary Care Provider Unavailabl e Encounter Details Date Type Department Care Team (Latest Contact Info) Description 06/03/2017 1:59 PM EDT - 06/03/2017 2:58 PM EDT Hospital Encounter XRay at [address] [place] [address] Sergio Alex MD [facility] [place] [address] Other fracture of first cervical vertebra Discharge Disposition: Home Social History Tobacco Use [...] SPINE 2 OR 3 VIEWS Routine 06/03/2017 2:14 PM EDT Other fracture of first cervical vertebra documented in this encounter Results * XR [...] Diagnosis Other fracture of first cervical vertebra documented in this encounter Care Teams Shaper Machine Hand Relationship Specialty Start Date End Date None None PCP - General 05/07/17 documented as of this encounter
--- OUTSIDE RECORDS SUMMARY | 2024-07-13 18:19 | XMS_ITS | Encounter Summary ---
Author Organization [facility] [place] [address] Care Team Providers Care Cathode Ray Tube Assembler Name Role Phone None Primary Care Provider Unavailabl e Encounter Details Date Type Department Care Team (Latest Contact Info) Description 05/07/2017 2:00 AM EDT - 05/07/2017 2:57 AM EDT Hospital Encounter [place] [phone] Discharge Disposition: Home Social History Tobacco Use [...] Diagnosis Comments REQUEST FOR 2ND READ CT CHEST ABDOMEN PELVIS STAT 05/07/2017 2:01 AM EDT documented in this encounter Results * Request For 2nd Read CT Chest Abdomen Pelvis (05/07/2017 2:01 AM EDT) Anatomical Region Laterality Modality Chest, Abdomen, Pelvis SO Impressions 05/07/2017 4:42 AM EDT No acute traumatic injury of the chest, abdomen or pelvis. I have personally reviewed the image(s) and the residents interpretation and agree with the findings, Jenni Guevara at 05/07/2017 4:42 AM Narrative 05/07/2017 4:42 AM EDT EXAMINATION: REQUEST FOR 2ND READ CT CHEST ABDOMEN PELVIS CLINICAL HISTORY: trauma; What Modality is the exam? CT Scan; Body Part (please add comments as necessary): Chest/Abdomen/Pelvis; I believe a reinterpretation of this exam may alter care of Patient. Yes TECHNIQUE: Reinterpretation request of a CT chest, abdomen and pelvis with intravenous contrast performed at [facility] at 2225 hours. 100 mL of Omnipaque 350 was administered. COMPARISON: Chest and pelvic frontal radiographs from outside hospital 05/06/2017. FINDINGS: Chest: Lungs and large airways: Mild bibasilar atelectasis. Otherwise, the lungs are clear with no focal area of consolidation identified. Pleura: No pneumothorax or pleural effusion. Heart/vasculature: The heart is normal in size. No traumatic aortic injury or aneurysmal dilatation. Lymph nodes/Mediastinum/Jayleen: No mediastinal, hilar or axillary lymphadenopathy. Abdomen/pelvis: Liver: ??Normal size and attenuation. Bile ducts: No intrahepatic or extrahepatic biliary duct dilatation. Gallbladder: No calcified gallstones. Normal caliber wall. Pancreas: Normal attenuation without duct dilatation. Spleen: No acute injury. No focal lesions. Adrenals: Normal. Kidneys: No acute injury. Symmetric enhancement with no collecting system dilatation. Vasculature: No acute aortic injury or aneurysm. Lymph Nodes: ??No enlarged lymph nodes. Bowel: Nondilated, no wall thickening. ?? Peritoneum and mesentery: No free air. No ascites or loculated fluid collection. No mesenteric inflammation. Abdominal wall: Normal. Urinary Bladder: Normal. Reproductive organs: 2 cm cyst in the right adnexa is within normal limits for age. Uterus is normal. Small amount of pelvic free fluid is likely physiologic. Osseous structures: No acute fracture identified. Procedure Note Jenni Guevara MD - 05/07/2017 EXAMINATION: REQUEST FOR 2ND READ CT CHEST ABDOMEN PELVIS CLINICAL HISTORY: trauma; What Modality is the exam? CT Scan; Body Part(please add comments as necessary): Chest/Abdomen/Pelvis; I believe areinterpretation of this exam may alter care of Patient. Yes TECHNIQUE: Reinterpretation [facility] CT chest, abdomen [facility] mL of Omnipaque 350 was administered. COMPARISON: Chest and pelvic frontal radiographs from outside hospital05/06/2017. FINDINGS: Chest: Lungs and large airways: Mild bibasilar atelectasis. Otherwise, the lungsare clear with no focal area of consolidation identified. Pleura: No pneumothorax or pleural effusion. Heart/vasculature: The heart is normal in size. No traumatic aortic injuryor aneurysmal dilatation. Lymph nodes/Mediastinum/Jayleen: No mediastinal, hilar or axillarylymphadenopathy. Abdomen/pelvis: Liver: Normal size and attenuation. Bile ducts: No intrahepatic or extrahepatic biliary duct dilatation. Gallbladder: No calcified gallstones. Normal caliber wall. Pancreas: Normal attenuation without duct dilatation. Spleen: No acute injury. No focal lesions. Adrenals: Normal. Kidneys: No acute injury. Symmetric enhancement with no collectingsystem dilatation. Vasculature: No acute aortic injury or aneurysm. Lymph Nodes: No enlarged lymph nodes. Bowel: Nondilated, no wall thickening. Peritoneum and mesentery: No free air. No ascites or loculated fluidcollection. No mesenteric inflammation. Abdominal wall: Normal. Urinary Bladder: Normal. Reproductive organs: 2 cm cyst in the right adnexa is within normal limitsfor age. Uterus is normal. Small amount of pelvic free fluid is likelyphysiologic. Osseous structures: No acute fracture identified. IMPRESSION No acute traumatic injury of the chest, abdomen or pelvis. I have personally reviewed the image(s) and the residents interpretationand agree with the findings, Jenni Guevara at 05/07/2017 4:42 AM Chris Turpin MD IMG OUTSIDE [facility] TATION ORDERABLES documented in this encounter Visit Diagnoses Not on filedocumented in this encounter Care Teams Cathode Ray Tube Assembler Relationship Specialty Start Date End Date None None PCP - General 05/07/17 documented as of this encounter
--- OUTSIDE RECORDS SUMMARY | 2024-07-13 18:20 | XMS_ITS | Encounter Summary ---
Author Organization [facility] [place] [address] Care Team Providers Care Gage Designer Name Role Phone David Ga MD, Mark Primary Care Provider [phone] Encounter Details Date Type Department Care Team (Latest Contact Info) Description 05/06/2017 12:05 AM EDT - 05/06/2017 12:14 AM EDT Hospital Encounter [place] [phone] Discharge Disposition: Home Social History Tobacco Use [...] Diagnosis Comments FILM LIBRARY STORAGE ONLY CT CHEST ABDOMEN PELVIS STAT 05/06/2017 12:05 AM EDT documented in this encounter Results * Film Library- Storage Only CT Chest Abdomen Pelvis (05/06/2017 12:05 AM EDT) Narrative RAD - 05/07/2017 1:15 AM EDT This exam is for storage only and is auto-finalizing. Chris Turpin MD [facility] FILM LIBRARY ORD ERABLES Performing Organization Address City/State/[facility] Co de Phone Number [place], [place] documented in this encounter Visit Diagnoses Not on filedocumented in this encounter Care Teams Gage Designer Relationship Specialty Start Date End Date Ervin Hernandez MD [address] [place] [address] [place] [address] PCP - General 10/21/10 05/06/17 documented as of this encounter
--- OUTSIDE RECORDS SUMMARY | 2024-07-13 18:20 | XMS_ITS | Encounter Summary ---
Author Organization [facility] [place] [address] Care Team Providers Care Fisher Eel Name Role Phone David Ga MD, Mark Primary Care Provider Encounter Details Date Type Department Care Team (Latest Contact Info) Description 05/06/2017 12:15 AM EDT - 05/06/2017 11:59 PM EDT Hospital Encounter [place] [phone] Discharge Disposition: Home Social History Tobacco Use [...] Associated Diagnosis Comments FILM LIBRARY STORAGE ONLY DX PELVIS STAT 05/06/2017 12:15 AM EDT documented in this encounter Results * Film Library- Storage Only DX Pelvis (05/06/2017 12:15 AM EDT) Narrative RAD - 05/07/2017 1:15 AM EDT This exam is for storage only and is auto-finalizing. Chris Turpin MD IMG FILM LIBRARY ORD ERABLES Performing Organization Address City/State/[facility] Co de Phone Number [place], [place] documented in this encounter Visit Diagnoses Not on filedocumented in this encounter Care Teams Fisher Eel Relationship Specialty Start Date End Date Ervin Hernandez MD [address] [place] [address] [facility] [place] [address] PCP - General 10/21/10 05/06/17 documented as of this encounter
--- OUTSIDE RECORDS SUMMARY | 2024-07-13 18:20 | XMS_ITS | Encounter Summary ---
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 Detected [facility] Comment: The phencyclidine screen detects phencyclidine at concentrations >25 ng/mL. Qualitative Drug screens are reported as ? None Detected? or ? Presumptive Positive? as the results are not routinely confirmed by highly-specific methods. As with any screen occasional false positive results from cross-reacting substances can occur. Not for Medico-Legal Purposes. [facility] Cocaine Metabolites Screen None Detected None Detected [facility] Comment: The cocaine metabolites screen detects benzoylecgonine (Cocaine Metabolite) at concentrations >150 ng/mL. Qualitative Drug screens are reported as ? None Detected? or ? Presumptive Positive? as the results are not routinely confirmed by highly-specific methods. As with any screen occasional false positive results from cross-reacting substances can occur. Not for Medico-Legal Purposes. Methamphetamines Screen, Urine None Detected None Detected [facility] Comment: The methamphetamine screen detects d-methamphetamine at concentrations >500 ng/mL. Qualitative Drug screens are reported as ? None Detected? or ? Presumptive Positive? as the results are not routinely confirmed by highly-specific methods. As with any screen occasional false positive results from cross-reacting substances can occur. Not for Medico-Legal Purposes. [facility] Opiates Screen Presumptive Pos(A) None Detected [facility] Comment: The opiates screen detects opiates at a concentration >100 ng/mL and oxymorphone >250 ng/mL. Qualitative Drug screens are reported as ? None Detected? or ? Presumptive Positive? as the results are not routinely confirmed by highly-specific methods. As with any screen occasional false positive results from cross-reacting substances can occur. Not for Medico-Legal Purposes. [facility] Amphetamines Screen None Detected None Detected [facility] Comment: The amphetamine screen detects d-amphetamine at concentrations >500 ng/mL. Qualitative Drug screens are reported as ? None Detected? or ? Presumptive Positive? as the results are not routinely confirmed by highly-specific methods. As with any screen occasional false positive results from cross-reacting substances can occur. Not for Medico-Legal Purposes. [facility] Benzodiazepines Screen None Detected None Detected [facility] Comment: The benzodiazepines screen detects benzodiazepines at concentrations >150 ng/mL. Not all benzodiazepines cross-react equally with antibody used in this screen. Due to the low dosage of clonazepam, false negatives may be obtained due to low concentration of clonazepam metabolites. Qualitative Drug screens are reported as ? None Detected? or ? Presumptive Positive? as the results are not routinely confirmed by highly-specific methods. As with any screen occasional false positive results from cross-reacting substances can occur. Not for Medico-Legal Purposes. [facility] Tricyclics Screen None Detected None Detected [facility] Comment: The tricyclics screen detects tricyclic antidepressants at concentrations >300 ng/mL. Not all tricyclics cross-react equally with the antibody used in this screen. Qualitative Drug screens are reported as ? None Detected? or ? Presumptive Positive? as the results are not routinely confirmed by highly-specific methods. As with any screen occasional false positive results from cross-reacting substances can occur. Not for Medico-Legal Purposes. [facility] Methadone Screen None Detected None Detected [facility] Comment: The methadone screen detects methadone at concentrations >200 ng/mL. Qualitative Drug screens are reported as ? None Detected? or ? Presumptive Positive? as the results are not routinely confirmed by highly-specific methods. As with any screen occasional false positive results from cross-reacting substances can occur. Not for Medico-Legal Purposes. [facility] Barbiturates Screen None Detected None Detected [facility] Comment: The barbiturates screen detects barbiturate at concentrations >200 ng/mL. Note: Not all barbiturates cross-react equally with antibody used in this screen. Qualitative Drug screens are reported as ? None Detected? or ? Presumptive Positive? as the results are not routinely confirmed by highly-specific methods. As with any screen occasional false positive results from cross-reacting substances can occur. Not for Medico-Legal Purposes. [facility] Oxycodone Srceen None Detected None Detected [facility] Comment: The oxycodone screen detects oxycodone at concentrations >100 ng/mL and oxymorphone >250 ng/ml. Qualitative Drug screens are reported as ? None Detected? or ? Presumptive Positive? as the results are not routinely confirmed by highly-specific methods. As with any screen occasional false positive results from cross-reacting substances can occur. Not for Medico-Legal Purposes. Propoxyphene Screen, Urine None Detected None Detected [facility] Comment: The propoxyphene screen detects propoxyphene at concentrations >300 ng/mL. Qualitative Drug screens are reported as ? None Detected? or ? Presumptive Positive? as the results are not routinely confirmed by highly-specific methods. As with any screen occasional false positive results from cross-reacting substances can occur. Not for Medico-Legal Purposes. [facility] Buprenorphine Screen None Detected None Detected [facility] Comment: The buprenorphine screen detects buprenorphine at concentrations >10 ng/mL. Qualitative Drug screens are reported as ? None Detected? or ? Presumptive Positive? as the results are not routinely confirmed by highly-specific methods. As with any screen occasional false positive results from cross-reacting substances can occur. Not for Medico-Legal Purposes. [facility] Adulterants Screen None Detected None Detected [facility] Comment: No adulteration or dilution of this urine sample was detected. All urine samples submitted for urine drugs of abuse analysis are tested for Creatinine and pH and for the presence of oxidants, nitrites, chromate and aldehydes (glutaraldehyde). Urine specimen (specimen) 05/07/2017 3:01 AM EDT 05/07/2017 9:20 AM EDT Narrative Resulting Agency Comment Spec In Lab Felicia Turpin MD URINE ORDERABLES [facility] [place] [address] * Request For 2nd Read CT Chest [...] and pelvis with intravenous contrast performed at [facility] at 2225 hours. 100 mL of Omnipaque [...] abdomen [facility]with [facility]. [facility] mL of Omnipaque 350 [...] Jenni Guevara at 05/07/2017 4:42 AM Chris COLLAZO OUTSIDE INTERPRE TATION ORDERABLES * Film Library- Storage Only CT Spine (05/07/2017 12:00 AM EDT) [facility] - 05/07/2017 3:01 AM EDT This exam is for storage only and is auto-finalizing. Chris VERDE FILM LIBRARY ORD ERABLES Performing Organization Address [facility] de Phone Number [place], [place] * Film Library- Storage Only DX Pelvis (05/06/2017 12:15 AM EDT) [facility] - 05/07/2017 1:15 AM EDT This exam is for storage only and is auto-finalizing. Chris COLLAZO FILM LIBRARY ORD ERABLES Performing Organization Address [facility] Co de Phone Number [place], [place] * Film Library- Storage Only CT Chest Abdomen Pelvis (05/06/2017 12:05 AM EDT) [facility] - 05/07/2017 1:15 AM EDT This exam is for storage only and is auto-finalizing. Chris COLLAZO FILM LIBRARY ORD ERABLES Performing Organization Address [facility] de Phone Number [place], [place] * Film Library- Storage Only DX Chest (05/06/2017 12:00 AM EDT) Narrative [facility] - 05/07/2017 1:14 AM EDT This exam is for storage only and is auto-finalizing. Chris Turpin MD IMG FILM LIBRARY ORD ERABLES JER[place], [place] documented in this encounter Visit Diagnoses Diagnosis Closed fracture of first cervical vertebra, unspecified fracture morphology, initial encounter C1 cervical fracture Closed fracture of first cervical vertebra without mention of spinal cord injury documented in this encounter Admitting Diagnoses Diagnosis C1 cervical fracture Closed fracture of first cervical vertebra without mention of spinal cord injury documented in this encounter Administered Medications Inactive Administered Medications - up to 3 most recent administrations Medication Order MAR Action Action Date Dose Rate Site acetaminophen (TYLENOL) tablet 1,000 mg 1,000 mg, Oral, EVERY 6 HOURS SCHEDULED, First dose on Wed05/07/17 at 0729, Until Discontinued, Do not exceed 4,000 mg in 24 hours, Routine Given 05/07/2017 8:43 AM EDT 1,000 mg bisacodyl (DULCOLAX) EC tablet 10 mg 10 mg, Oral, 2 TIMES DAILY PRN, Starting on Wed05/07/17 at 0705, Until Wed05/07/17 at 1651, Constipation, DO NOT CRUSH OR OPEN Administer if needed per patient's routine or if no bowel movement within 48 hours to achieve: 1) One bowel movement at least every 48 hours, AND 2) Without straining. If multiple bowel medications ordered, consider adding bisacodyl if polyethylene glycol (MIRALAX) and lactulose not sufficient., Routine bisacodyl (DULCOLAX) suppository 10 mg 10 mg, Rectal, DAILY PRN, Starting on Wed05/07/17 at 0705, Until Wed05/07/17 at 1651, Constipation, Administer if needed per patient's routine or if no bowel movement within 48 hours to achieve: 1) One bowel movement at least every 48 hours, AND 2) Without straining. If multiple bowel medications ordered, consider adding bisacodyl if polyethylene glycol (MIRALAX) and lactulose not sufficient. If patient unable to take PO, may give ND if ordered, Routine iohexol (OMNIPAQUE) 350 mg/mL solution 22,750 mg 22,750 mg (65 mL), Intravenous, ONCE PRN, 1 dose, Starting on Wed05/07/17 at 0619, Until Wed05/07/17 at 0620, Per Protocol, Warning Vesicant/Irritant Medication , Routine Given 05/07/2017 6:20 AM EDT 22,750 mg lactated Ringers infusion 1,000 mL 1,000 mL, at 100 mL/hr, Intravenous, CONTINUOUS, Starting on Wed05/07/17 at 0729, Until Wed05/07/17 at 1651, Recovery (Recovery-Hospital Unit) Rate/Dose Verify 05/07/2017 11:21 AM EDT 1,000 mLs 100 mL/hr New Bag 05/07/2017 8:42 AM EDT 1,000 mLs 100 mL/hr ondansetron (ZOFRAN) tablet 4 mg 4 mg, Oral, ONCE, 1 dose, On Wed05/07/17 at 1045, STAT Given 05/07/2017 10:56 AM EDT 4 mg polyethylene glycol (MIRALAX) packet 17 g 17 g, Oral, DAILY PRN, Starting on Wed05/07/17 at 0705, Until Wed05/07/17 at 1651, Constipation, Administer if needed per patient's routine or if no bowel movement within 48 hours to achieve: 1) One bowel movement at least every 48 hours, AND 2) Without straining. If multiple bowel medications ordered, consider polyethylene glycol(MIRALAX) first., Routine senna-docusate (PERICOLACE) 8.6-50 mg per tablet 2 tablet 2 tablet, Oral, 2 TIMES DAILY, First dose on Wed05/07/17 at 0900, Until Discontinued, Routine Given 05/07/2017 10:12 AM EDT 2 tablets documented in this encounter Active and Recently Administered Medications Times are shown in EDT. Scheduled Medication Order 05/05/2017 05/06/2017 05/07/2017 acetaminophen (TYLENOL) tablet 1,000 mg 1,000 mg, Oral, EVERY 6 HOURS SCHEDULED, First dose on Wed05/07/17 at 0729, Until Discontinued, Do not exceed 4,000 mg in 24 hours, Routine 0843 (Given - Provid er: Khai Tamez RN)1200 (Not Given - Provider: Mary Lou Savage - Reason: Patient/family refused) enoxaparin (LOVENOX) injection 40 mg 40 mg, Subcutaneous, NIGHTLY, First dose on Wed05/07/17 at 2100, Until Discontinued, Routine ondansetron (ZOFRAN) tablet 4 mg (COMPLETED) 4 mg, Oral, ONCE, 1 dose, On Wed05/07/17 at 1045, STAT 1056 (Given - Provid er: Khai Tamez RN) senna-docusate (PERICOLACE) 8.6-50 mg per tablet 2 tablet 2 tablet, Oral, 2 TIMES DAILY, First dose on Wed05/07/17 at 0900, Until Discontinued, Routine 1012 (Given - Provid er: Brit Matias LPN) sodium chloride 0.9 % flush 5 mL 5 mL, Intravenous, 2 TIMES DAILY, First dose on Wed05/07/17 at 0900, Until Discontinued, Recovery (Recovery-Hospital Unit), Routine 0900 (Not Given - Pr ovider: Khai Tamez RN - Reason: See comment - Comment: infusing) Continuous Medication Order 05/05/2017 05/06/2017 05/07/2017 lactated Ringers infusion 1,000 mL 1,000 mL, at 100 mL/hr, Intravenous, CONTINUOUS, Starting on Wed05/07/17 at 0729, Until Wed05/07/17 at 1651, Recovery (Recovery-Hospital Unit) 0842 (New Bag - Prov ider: Khai Tamez RN)1121 (Rate/Dose Verify - Provider: Khai Tamez RN)1419 (Stopped - Provider: Khai Tamez RN) PRN Medication Order 05/05/2017 05/06/2017 05/07/2017 bisacodyl (DULCOLAX) EC tablet 10 mg 10 mg, Oral, 2 TIMES DAILY PRN, Starting on Wed05/07/17 at 0705, Until Wed05/07/17 at 1651, Constipation, DO NOT CRUSH OR OPEN Administer if needed per patient's routine or if no bowel movement within 48 hours to achieve: 1) One bowel movement at least every 48 hours, AND 2) Without straining. If multiple bowel medications ordered, consider adding bisacodyl if polyethylene glycol (MIRALAX) and lactulose not sufficient., Routine bisacodyl (DULCOLAX) suppository 10 mg 10 mg, Rectal, DAILY PRN, Starting on Wed05/07/17 at 0705, Until Wed05/07/17 at 1650, Constipation, Administer if needed per patient's routine or if no bowel movement within 48 hours to achieve: 1) One bowel movement at least every 48 hours, AND 2) Without straining. If multiple bowel medications ordered, consider adding bisacodyl if polyethylene glycol (MIRALAX) and lactulose not sufficient. If patient unable to take PO, may give ND if ordered, Routine iohexol (OMNIPAQUE) 350 mg/mL solution 22,750 mg (COMPLETED) 22,750 mg (65 mL), Intravenous, ONCE PRN, 1 dose, Starting on Wed05/07/17 at 0619, Until Wed05/07/17 at 0620, Per Protocol, Warning Vesicant/Irritant Medication , Routine 0620 (Given - [facility]) lidocaine (XYLOCAINE) 10 mg/mL (1 %) injection 3 mg 3 mg (0.3 mL), Subcutaneous, ONCE PRN, 1 dose, Starting on Wed05/07/17 at 0727, Until Wed05/07/17 at 1650, for discomfort with PIV insertion, Recovery (Recovery-Hospital Unit), Routine naloxone (NARCAN) injection 0.2 mg 0.2 mg, Intravenous, EVERY 1 MIN PRN, Starting on Wed05/07/17 at 0727, Until Wed05/07/17 at 1650, Opioid Reversal, If respiratory rate less than 6 OR the patient is unable to arouse OR SpO2 is declining, Give for respiratory rate of less than or equal to 6 and patient is heavily sedated or unarousable. May repeat every 60 seconds to increase respiratory rate. DO NOT exceed 2 mg total dose., Recovery (Recovery-Hospital Unit), Routine oxyCODONE (ROXICODONE) immediate release tablet 5 mg 5 mg, Oral, EVERY 4 HOURS PRN, Starting on Wed05/07/17 at 0727, Until Wed05/07/17 at 1650, Pain, May repeat for 10mg total if inadequate response within 90 minutes, Routine polyethylene glycol (MIRALAX) packet 17 g 17 g, Oral, DAILY PRN, Starting on Wed05/07/17 at 0705, Until Wed05/07/17 at 1651, Constipation, Administer if needed per patient's routine or if no bowel movement within 48 hours to achieve: 1) One bowel movement at least every 48 hours, AND 2) Without straining. If multiple bowel medications ordered, consider polyethylene glycol(MIRALAX) first., Routine sodium chloride 0.9 % flush 5-20 mL 5-20 mL, Intravenous, EVERY 1 MIN PRN, Starting on Wed05/07/17 at 0727, Until Wed05/07/17 at 1651, flush, Flush pertains to all indwelling lines. Flush per protocol found in the job aid using the link provided on this medication record., Recovery (Recovery-Hospital Unit), Routine documented in this encounter Care Teams Treasurer Relationship Specialty Start Date End Date None None PCP - General 05/07/17 documented as of this encounter
--- OUTSIDE RECORDS SUMMARY | 2024-07-13 18:20 | XMS_ITS | Encounter Summary ---
Author Organization [facility] [place] [address] Care Team Providers Care Utilization Reviewer Name Role Phone David Ga MD, Mark Primary Care Provider [phone] Encounter Details Date Type Department Care Team (Latest Contact Info) Description 05/06/2017 - 05/06/2017 12:04 AM EDT Hospital Encounter [place] [phone] Discharge Disposition: Home Social History Tobacco Use [...] Diagnosis Comments FILM LIBRARY STORAGE ONLY DX CHEST STAT 05/06/2017 12:00 AM EDT documented in this encounter Results * Film Library- Storage Only DX Chest (05/06/2017 12:00 AM EDT) Narrative RAD - 05/07/2017 1:14 AM EDT This exam is for storage only and is auto-finalizing. Chris Turpin MD IM FILM LIBRARY ORD ERABLES [place], [place] documented in this encounter Visit Diagnoses Not on filedocumented in this encounter Care Teams Utilization Reviewer Relationship Specialty Start Date End Date Ervin Hernandez MD [address] [place] [address] [place] [address] PCP - General 10/21/10 05/06/17 documented as of this encounter
== END 2024-07-13 18:18 | disposition home or self-care (01) ==
LOC: LBO 18:18
PROVIDERS: Visit Provider Advanced Practice Midwife
DX: Z34.92 Encounter for supervision of normal pregnancy, unspecified, second trimester (principal)
CPT/HCPCS: 36415; 85027

== ENCOUNTER 2024-08-07 01:53 | Outpatient (CLI) | payer OTHER, SELFPAY ==
[2024-08-07 15:49] LABS: HGB 10.3 g/dL (11.2-15.7); MCH 29.8 pg (27.0-33.0); MCHC 33.2 % (32.0-36.0); MCV 90 fL (80-95); MPV 10.7 fL (8.0-11.0); Platelet Count 115 10^3/uL (130-400); RBC 3.46 10^6/uL (3.93-5.22); RDW 12.4 % (11.7-14.6); RDW-SD 40.3 fL; WBC 10.42 10^3/uL (4.4-10.8)
[2024-08-07 15:58] LABS: Glucose,1 Hr (Glucola) 143 mg/dL (80-140)
== END 2024-08-07 01:54 | disposition home or self-care (01) ==
LOC: LBO 01:54
PROVIDERS: Visit Provider Advanced Practice Midwife
DX: Z34.92 Encounter for supervision of normal pregnancy, unspecified, second trimester (principal)
CPT/HCPCS: 36415; 82950; 85027

== ENCOUNTER 2024-08-11 01:17 | Outpatient (CLI) | payer OTHER, SELFPAY ==
[2024-08-11 09:20] LABS: Glucose 1 Hour 120 mg/dL
[2024-08-11 11:01] LABS: Glucose 3 Hour 89 mg/dL
== END 2024-08-11 01:18 | disposition home or self-care (01) ==
LOC: LBO 01:17
PROVIDERS: Visit Provider Advanced Practice Midwife
DX: R73.09 Other abnormal glucose (principal); Z34.92 Encounter for supervision of normal pregnancy, unspecified, second trimester
CPT/HCPCS: 36415; 82951

== ENCOUNTER 2024-08-21 11:12 | Outpatient (REF) | payer OTHER, SELFPAY ==
[2024-08-21 12:33] LABS: *AMPHETAMINES SCREEN URINE Negative (Negative); *BARBITURATES SCREEN URINE Negative (Negative); *BENZODIAZEPINES SCREEN URINE Negative (Negative); Cannabinoids THC Negative (Negative); Cocaine Screen,Urine Negative (Negative); METHADONE URINE SCREEN Negative (Negative); OPIATES URINE SCREEN Negative (Negative); Tricyclic Antidepressants Negative (Negative)
[2024-08-22 11:55] LABS: Fentanyl Scr w/Rfx Confirm Negative ng/mL (<1)
[2024-08-25 11:14] LABS: Buprenorphine Negative ng/mL (Cutoff: 5.0); Norbuprenorphine Negative ng/mL (Cutoff: 2.5)
== END 2024-08-21 11:13 | disposition home or self-care (01) ==
LOC: LBN 11:12
PROVIDERS: Visit Provider Advanced Practice Midwife
DX: F12.90 Cannabis use, unspecified, uncomplicated (principal); Z34.93 Encounter for supervision of normal pregnancy, unspecified, third trimester
CPT/HCPCS: 80307; 80348

== ENCOUNTER 2024-09-04 11:06 | Outpatient (REF) | payer OTHER, SELFPAY ==
[2024-09-04 14:01] LABS: *AMPHETAMINES SCREEN URINE Negative (Negative); *BARBITURATES SCREEN URINE Negative (Negative); *BENZODIAZEPINES SCREEN URINE Negative (Negative); Cannabinoids THC Negative (Negative); Cocaine Screen,Urine Negative (Negative); METHADONE URINE SCREEN Negative (Negative); OPIATES URINE SCREEN Negative (Negative)
[2024-09-04 14:03] LABS: Tricyclic Antidepressants Negative (Negative)
[2024-09-05 11:39] LABS: Fentanyl Scr w/Rfx Confirm Negative ng/mL (<1)
[2024-09-08 08:49] LABS: Buprenorphine Negative ng/mL (Cutoff: 5.0)
== END 2024-09-04 11:07 | disposition home or self-care (01) ==
LOC: LBN 11:06
PROVIDERS: Advanced Practice Midwife; Visit Provider Advanced Practice Midwife
DX: F12.90 Cannabis use, unspecified, uncomplicated (principal)
CPT/HCPCS: 80307; 80348

== ENCOUNTER 2024-09-04 11:24 | Emergency (ER) | payer OTHER, SELFPAY ==
[2024-09-04 11:27] VITALS: BP 139/90; PULSE 110; RESP 12; TEMP 36.4; O2SAT 98
--- NOTE | 2024-09-04 11:42 | ED.GENADUL_ITS ---
Discharge Plan Disposition Patient Disposition: Home Condition: Stable Discharge Details Clinical Impression: Sprain of right ankle Primary Care Provider: Unknown,Unknown ED Provider: Zoltan Duggan Home Meds and New Rx's Prescriptions: Continued aspirin 81 mg tablet,delayed release (DR/EC) 81 mg PO DAILY calcium carbonate [Tums] 200 mg calcium (500 mg) tablet,chewable 200 mg PO BID PRN omeprazole 40 mg capsule,delayed release(DR/EC) 40 mg PO DAILY Qty: 30 5RF vitafusion multivatimin gummie 2 ea PO DAILY metoclopramide HCl [Reglan] 10 mg tablet 10 mg PO Q6H PRN (Reason: nausea and vomiting) Qty: 30 4RF Discharge Instructions Instructions: Ankle sprain Additional Instructions: You were seen in the emergency department for your ankle swelling of your right ankle after accidentally shutting it in a screen door, have no signs of blood clot on physical exam I do not think an emergent ultrasound is warranted at this visit. You have been up and working on a sprained ankle for days and are having lingering swelling without any icing or compression or elevation which is to be expected. Please use the ankle brace we provided, rest, ice, compress and elevate the ankle, I do not feel an x-ray is necessary as you are weightbearing without much issue-and you agreed with this plan to avoid any radiation exposure to your baby. Please return for any spreading swelling up the leg especially with skin changes and more calf and medial thigh pain Discharge Data Discharge Date/Time-TO BE ENTERED AT DEPARTURE: 09/04/24 12:22 HPI General Date/Time Provider Initiated Documentation: 09/04/24 11:42 . HPI Narrative: 29 year-old female presents to ED today by POV/ambulating without issue with her with a chief complaint of R ankle pain after getting it shut in a screen door 2 weeks ago with persistent swelling, sent by mid-- patient is 32 weeks gestation. Quality described as swelling to lateral R ankle, R-foot dominant, no radiation to calf swelling, skin changes, numbness/tingling, medial thigh pain. Severity is described as mild. Palliating factors include nothing specific attempted- no bracing, no RICE therapy. Provoking factors include has been on it daily working. Patient not anticoagulated. Related Data Home Medications ?Medication ?Instructions ?Recorded ?Confirmed metoclopramide HCl 10 mg tablet 10 mg PO Q6H PRN nausea and 03/08/24 09/04/24 (Reglan) vomiting #30 tabs aspirin 81 mg tablet,delayed 81 mg PO DAILY 06/15/24 09/04/24 release calcium carbonate (Tums) 200 mg PO BID PRN 07/13/24 09/04/24 omeprazole 40 mg capsule,delayed 40 mg PO DAILY #30 caps 07/13/24 09/04/24 release vitafusion multivatimin 2 ea PO DAILY 09/04/24 09/04/24 gummie Previous Rx's ?Medication ?Instructions ?Recorded metoclopramide HCl 10 mg tablet 10 mg PO Q6H PRN nausea and 03/08/24 (Reglan) vomiting #30 tabs omeprazole 40 mg capsule,delayed 40 mg PO DAILY #30 caps 07/13/24 release Allergies Allergy/AdvReac Type Severity Reaction Status Date / Time No Known Allergies Allergy Verified 09/04/24 11:30 General Stated Complaint: Orthopedic KARINE: 4 Review of Systems All systems reviewed & are unremarkable except as noted in HPI and below Exam Narrative Exam Narrative: GENERAL APPEARANCE: Well-nourished, non-toxic, awake and alert, atraumatic, no acute distress. SKIN: Warm, pink, dry, intact, without rashes/lesions/ulcerations. HEAD: Normocephalic, atraumatic, normal hair distribution for gender/age. EYES: Normal conjunctiva, no exudates on lids/lashes. ENT: Nares patent, no circumoral cyanosis, no facial swelling NECK: Supple, trachea midline, painless cervical ROM. LUNGS/CHEST: Non-labored respirations, normal A/P diameter, symmetrical expan porter, no chest wall deformity HEART (CV/PV): Regular rate, 2+ R dorsalis pedis pulse, no peripheral edema, no JVD. ABDOMEN: Soft, non-distended, no guarding. MSK: Normal ROM, no swelling/deformity to bilateral UEs or LEs, moving all extremities without weakness, no cyanosis, spine midline without tenderness, normal curvature. R LE: Mild swelling to the right lateral ankle without crepitus, no skin changes, pedal pulses intact with brisk capillary refill, able to ambulate without issue, no Homans negative, no unilateral calf swelling, no skin changes to right lower extremity NEURO: Mental Status AAOx4 - alert to person, place, time, events No facial droop, no forehead involvement. Motor: No focal weakness - strength 5/5 in bilateral UEs and LEs, proximal and distal, symmetric. Sensory: sensation intact to light touch globally. Gait normal: patient ambulated without ataxia into ED room. PSYCH: euthymic, cooperative, pleasant, appropriate speech Course Vital Signs Vital signs: Vital Signs Temperature 36.4 C 09/04/24 11:27 Pulse 110 H 09/04/24 11:27 Respiratory Rate 12 09/04/24 11:27 Blood Pressure 139/90 09/04/24 11:27 Pulse Oximetry 98 09/04/24 11:27 Temperature 36.4 C 09/04/24 11:27 Temperature Source Temporal Artery Scan 09/04/24 11:27 Pulse 110 H 09/04/24 11:27 Respiratory Rate 12 09/04/24 11:27 Respiratory Effort Normal, Non-Labored 09/04/24 11:29 Blood Pressure 139/90 09/04/24 11:27 Blood Pressure Position Sitting 09/04/24 11:27 Pulse Oximetry 98 09/04/24 11:27 Oxygen Delivery Method Room Air 09/04/24 11:27 Oxygen Flow Rate 0 09/04/24 11:27 Pain Level 0 09/04/24 11:27 Medical Decision Making This dictation utilizes [id number] dictation software and may contain unedited grammatical errors. 29 year-old female presents to ED today by POV/ambulating without issue with her with a chief complaint of R ankle pain after getting it shut in a screen door 2 weeks ago with persistent swelling, sent by mid-- patient is 32 weeks gestation. Quality described as swelling to lateral R ankle, R-foot dominant, no radiation to calf swelling, skin changes, numbness/tingling, medial thigh pain. Severity is described as mild. Palliating factors include nothing specific attempted- no bracing, no RICE therapy. Provoking factors include has been on it daily working. Patients' medical history: Noncontributory. Family and social history: Noncontributory. Pertinent exam findings / vital signs include mild swelling at the right lateral malleolus, neurovascularly intact in the right foot, Homans negative, no unilateral calf swelling or skin changes to the entire right lower extremity. Differential / pathologies of concern include sprain/strain, unlikely fracture with weeks of ambulation. Diagnostic studies of: -Discussed x-ray but decided against this patient tolerates weightbearing wi thout issue and unnecessary radiation exposure to her baby. Interventions of: -Provided ankle brace and recommend RICE therapy. ED Course/Assessment/Plan: 29-year-old female presents with persistent pain after having her ankle shut in a screen door on accident, has mild swelling but has been up and walking on it and working the entire time without any RICE therapy or bracing so some level of swelling is to be expected, she has no signs of clot pathology, we discussed this and she would like to continue treating for sprain with an ankle brace and RICE therapy before returning for any further abnormalities or unilateral leg swelling or skin changes. Findings not consistent with clot pathology, fracture. Disposition of sprain of right ankle. Patient verbalized understanding of the plan and return to ED criteria and engaged in shared decision making. Medical Records Medical records reviewed: Yes I reviewed the patient's medical records. Quality:SDOH Health Related Social Needs: No Data to Display PFSH All Active Problems (Updated 09/04/24 @ 11:49 by JEFFERY Mills) Sprain of right ankle (Acute) Elevated glucose (Acute) Thrombocytopenia affecting (Acute) Second trimester bleeding (Acute) Marijuana user (Acute) (Acute) Medical History (Updated 09/04/24 @ 11:49 by JEFFERY Mills) Nausea and vomiting during prior to 22 weeks gestation Abnormal uterine bleeding (AUB) test positive Metabolic acidosis, increased anion gap Hypomagnesemia Glucosuria Antepartum bleeding, first trimester No acute medical problems Surgical History No significant past surgical history Family History (Updated 05/15/24 @ 10:52 by Concha Adan CNM) Mother Asthma ? uses inhaler, is a smoker Diabetes Brother Anxiety Father Stroke April 2024 - clotting in his brain. Maternal Grandmother Stroke age 73 Social History (Updated 04/18/24 @ 10:39 by Concha Wilde CNM) Smoking/Tobacco Use Status: Former Tobacco Use tobacco type: e-cigarettes Quit Date: 02/27/22 Smoking risk assessment performed?: Yes Alcohol Intake: current Alcohol Intake frequency: a few times a month Drug use: Never Substance use type: does not use Adopted: No Caregiver/Support person: No Foster care: No Household members: significant other Housing: house Communication Needs: None Education Level: high school Do you need help understanding health information?: Never Pets and animals: Yes Pets and animals: cat(s) and dog(s) Sexually active: Yes Do you think of yourself as: straight/heterosexual Current gender identity: male What is your relationship status?: living with partner How often do you talk on the phone with friends or family?: once per week How often do you get together with friends or relatives?: once per week Panel score (0-1 are the most socially isolated patients): 1 What type of physical activity do you participate in: walking Duration: 30-45 minutes/day Frequency: 5-6 times per week Special elsa needs: No Agree to transfusion: Yes Seatbelt use: always Helmet use: No Drive intox or ride w/intox six horse hitch driver: No Do you feel safe at home: Yes Do you feel safe in your relationship?: Yes History History 2 Para Hx # Term Pregnancies Multiple births Hx # Pregnancies Ectopic pregnancies AB induced Hx Number of Living Children AB spontaneous 1 Past Pregnancies Del. Date GA/Weeks # Preg Succ Route Wgt Sex Labor Lgth Anesth esia Location [facility] 09/29/23 6 No No Delivery Date: 09/29/23 Last Updated by: Concha Wilde CNM SAB without complication
--- NOTE | 2024-10-25 15:11 | NUR.NOTE ---
Accessed patient chart to print provider note to be faxed to [facility] for billing purposes. Nursing Note:
== END 2024-09-04 12:22 | disposition home or self-care (01) ==
LOC: ER 12:18
PROVIDERS: Emergency Provider Physician Assistant
DX: S93.401A Sprain of unspecified ligament of right ankle, initial encounter (principal); W23.0XXA Caught, crushed, jammed, or pinched between moving objects, initial encounter
CPT/HCPCS: 29515; 99283

== ENCOUNTER 2024-09-18 02:29 | Outpatient (CLI) | payer OTHER, SELFPAY ==
[2024-09-18 09:54] LABS: HCT 34.8 % (36.0-46.0); HGB 11.3 g/dL (11.2-15.7); MCH 28.1 pg (27.0-33.0); MCHC 32.5 % (32.0-36.0); MCV 87 fL (80-95); MPV 10.3 fL (8.0-11.0); Platelet Count 129 10^3/uL (130-400); RBC 4.02 10^6/uL (3.93-5.22); RDW 13.1 % (11.7-14.6); RDW-SD 41.3 fL; WBC 9.14 10^3/uL (4.4-10.8)
== END 2024-09-18 02:30 | disposition home or self-care (01) ==
LOC: LBO 02:29
PROVIDERS: Visit Provider Advanced Practice Midwife
DX: Z34.93 Encounter for supervision of normal pregnancy, unspecified, third trimester (principal); O26.849 Uterine size-date discrepancy, unspecified trimester
CPT/HCPCS: 36415; 85027

== ENCOUNTER 2024-09-20 02:01 | Outpatient (CLI) | payer OTHER, SELFPAY ==
--- NOTE | 2024-09-20 11:50 | DI.US_ITS ---
Exam(s) US OB SABAS WEIGHT EXAM: US OB SABAS WEIGHT CLINICAL HISTORY: S>D, interval growth,O26.849. TECHNIQUE: Transabdominal obstetrical ultrasound was performed. COMPARISON: US US OB F/U FACIAL/LVOT/RVOT from 06/21/2024 FINDINGS: There is a single viable intrauterine gestation with cardiac activity identified-132 bpm The fetus is presently in breech position . Amniotic fluid: There is a low normal amount of amniotic fluid with an SABAS of 7.5cm. Placental location: The placenta is posterior grade 2,with no evidence of placenta previa. Dating parameters place this at approximately 33 weeks and 3 days gestational age, implying ANEESH of 11/02/2024. BPD measures 33 weeks and 2 days HC measures 34 weeks and 4 days AC measures 32 weeks and 6 days FL measures 34 weeks and 5 days Estimated weight is 2231 gm-4 pounds, 15 ounces. Fetus is at the 28th percentile on the Hadlock scale. IMPRESSION:: Viable 3rd trimester gestation, as described above. Low normal amount of amniotic fluid with SABAS = 7.5 cm DATA REPOSITORY:
== END 2024-09-20 02:21 ==
LOC: DI 02:01
PROVIDERS: Visit Provider Advanced Practice Midwife
DX: O26.843 Uterine size-date discrepancy, third trimester (principal); Z3A.33 33 weeks gestation of pregnancy
CPT/HCPCS: 76816

== ENCOUNTER 2024-09-20 13:03 | Inpatient (IN) | payer OTHER, SELFPAY ==
[2024-09-20] VITALS (46 sets, daily range): BP systolic 117–133; BP diastolic 65–86; PULSE 87–116; RESP 16; TEMP 36.8–36.9; O2SAT 97–99
--- NOTE | 2024-09-20 13:06 | HPE_ITS ---
Date of service: 09/20/24 Time of Service: 13:06 Assessment and Plan Assessment and plan (1) labor in third trimester: Status: Acute Assessment and plan: A: 29 yo @ 34+1 wks, breech presentation, early PTL Category 1 tracing, pt coping well with discomforts 3/100% intact with bulging forebag, breech at -3 station P: Dr. aWng summoned to triage room GBS collected, celestone 12 mg IM now UA/UC&S, UDS sent; CBC, T&S, CMP, and Mag level Start IVF, PCN prophylaxis and Dr. Wang orders Magnesium level Will observe for progression from early labor, c/s per Dr. Wang Qualifiers: Fetus number: single or unspecified fetus (2) 34 weeks gestation of : Status: Acute (3) Breech presentation: Status: Acute OB-HPI Labor/Delivery History of Present Illness Reason for Visit: labor, breech Chief Complaint: Uterine Contractions (lower abdominal cramps today, went home from work. No bleeding, no recent coitus, no ROM). ANEESH Calculator Estimated Delivery Date Method Current WG Current Estimate 10/31/24 Ultrasound #1 34w 1d Other Estimates 10/30/24 LMP (Certain) 34w 2d History of Present Expected Delivery Route/Plan - CNM FOB - Luis Angel Covarrubias (has a 9 year old, rarely sees) BG Specific Issues/Plan 1. Vaginal bleeding at 9w EGA. Viable u/s. No sequelae. 1a. 2nd trimester bleeding, seen at ED. Rx'ed for BV, US at DI nm, no previa 2. cfDNA: low risk x5 female, CF-neg, SMA-neg 3. 5P screen positive, initial UDS is THC+, repeat @ 28 wks=negative 4. BMI 30, early glucola 149; 3 hr GTT [id number] 4a. 1 hr glucola @ 27 wks 143; 3-hr GTT nml x4: [phone] 5. Low platelets at ED - 105, stop ASA per consult with Dr Wang, then restart ASA and recheck platelets in 1 week 5a. 05/23 Plt 120, per Dr. Wang will repeat again in 2 weeks 5b. repeated 06/15 @ 104, will check plts monthly per team meeting 06/20/24. @ 27 [id number] 5 c. Platelets monthly, 33 weeks___ 6. Chronic heartburn - took omeprazole prior to , still taking. 7. Nausea and vomiting, ED visits frequently, Treated with reglan and ondansetron. 8. Anemia - hgb 10.3, iron recommended daily, vomited ferrous sulfate, blood builder or floradix recommended. Assessment: History Reviewed & Current Review of Systems Narrative: ROS noncontributory other than HPI PFSH All Active Problems (Updated 09/20/24 @ 13:14 by Carine Morrison) Breech presentation (Acute) 34 weeks gestation of (Acute) labor in third trimester (Acute) Uterine size date discrepancy, antepartum (Acute) Sprain of right ankle (Acute) Thrombocytopenia affecting (Acute) Second trimester bleeding (Acute) Marijuana user (Acute) (Acute) Medical History (Updated 09/20/24 @ 13:14 by Carine Morrison) Elevated glucose Nausea and vomiting during prior to 22 weeks gestation Abnormal uterine bleeding (AUB) test positive Metabolic acidosis, increased anion gap Hypomagnesemia Glucosuria Antepartum bleeding, first trimester No acute medical problems Surgical History No significant past surgical history Family History (Updated 05/15/24 @ 10:52 by Concha Adan CNM) Mother Asthma ? uses inhaler, is a smoker Diabetes Brother Anxiety Father Stroke April 2024 - clotting in his brain. Maternal Grandmother Stroke age 73 Social History (Updated 04/18/24 @ 10:39 by Concha Wilde CNM) Smoking/Tobacco Use Status: Former Tobacco Use tobacco type: e-cigarettes Quit Date: 02/27/22 Smoking risk assessment performed?: Yes Alcohol Intake: current Alcohol Intake frequency: a few times a month Drug use: Never Substance use type: does not use Adopted: No Caregiver/Support person: No Foster care: No Household members: significant other Housing: house Communication Needs: None Education Level: high school Do you need help understanding health information?: Never Pets and animals: Yes Pets and animals: cat(s) and dog(s) Sexually active: Yes Do you think of yourself as: straight/heterosexual Current gender identity: male What is your relationship status?: living with partner How often do you talk on the phone with friends or family?: once per week How often do you get together with friends or relatives?: once per week Panel score (0-1 are the most socially isolated patients): 1 What type of physical activity do you participate in: walking Duration: 30-45 minutes/day Frequency: 5-6 times per week Special elsa needs: No Agree to transfusion: Yes Seatbelt use: always Helmet use: No Drive intox or ride w/intox tour bus driver/guide: No Do you feel safe at home: Yes Do you feel safe in your relationship?: Yes History History 2 Para 0 Hx # Term Pregnancies 0 Multiple births 0 Hx # Pregnancies 0 Ectopic pregnancies 0 AB induced 0 Hx Number of Living Children 0 AB spontaneous 1 Past Pregnancies Del. Date GA/Weeks # Preg Succ Route Wgt Sex Labor Lgth Anesth esia Location [facility] 09/29/23 6 No No Delivery Date: 09/29/23 Last Updated by: Concha Wilde CNM SAB without complication Meds Allergies and Home Medications Allergies Allergy/AdvReac Type Severity Reaction Status Date / Time No Known Allergies Allergy Verified 09/18/24 08:48 Home Medications ?Medication ?Instructions ?Recorded ?Confirmed ?Type metoclopramide HCl 10 mg tablet 10 mg PO Q6H PRN nausea and 03/08/24 09/18/24 Rx (Reglan) vomiting #30 tabs aspirin 81 mg tablet,delayed 81 mg PO DAILY 06/15/24 09/18/24 History release calcium carbonate (Tums) 200 mg PO BID PRN 07/13/24 09/18/24 History omeprazole 40 mg capsule,delayed 40 mg PO DAILY #30 caps 07/13/24 09/18/24 Rx release vitafusion multivatimin 2 ea PO DAILY 09/04/24 09/18/24 History gummie Exam Physical Exam Vital signs: Pulse BP 111 H 133/86 09/20/24 12:19 09/20/24 12:19 Vital Signs Reviewed: Yes Constitutional Constitutional: mild distress, average body habitus and cooperative Detailed Labor and Delivery Exam Dilation: 3 (bulging forebag) Effacement (%): 100 station: -3 Position: Other (breech) Cervix position: mid Amniotic Membrane Status: Intact (bulging forebag) Contraction Frequency(min): short frequent contrx consistene with uterine irritability Contraction Intensity: Mild Fetus A Heart Rate Baseline: 125 Monitor Accelerations: 15 X 15 Monitor Decelerations: None Variability: Moderate (6-25 BPM) Presentation: Breech Categories: Category I Est. Weight: 4 lb 15.366 oz Est. Weight: 2250 gms HEENT Exam HEENT Exam: Normal Neck Exam Neck Exam: Normal Chest/Brest/Axilla Exam Chest Exam: Normal Breast Exam Breast Exam: Not Done Respiratory Exam Respiratory Exam: Normal Cardiovascular Exam Cardiovascular Exam: Normal Abdominal Exam Abdominal Exam: Normal (Gravid, nontender) Rectal Exam Rectal Exam: Normal Exam Exam: Normal Extremities Exam Extremities Exam: Normal Back/Spine/Pelvis Exam Back Exam: Normal Skin Exam Skin Exam: Normal Neurological Exam Neurological Exam: Normal Psychiatric Exam Psychiatric Exam: Normal Results Results Group Beta Strep: Done-Result Unknown Blood Type: O+ Rubella Status: Nonimmune Varicella Immunity: Immune Risk Assessment Risk for Shoulder Dystocia Historical/Initial OB: NEGATIVE FOR: Pelvic Abnormality, Pre- BMI>30, Previous Shoulder Dystocia or Previous Macrosomia Date/Initial: 04/18/24 Risk for Pre-Eclampsia Date Initiated/Initials: 04/18/24 Yes, if one or more: NEGATIVE FOR: Hx Pre-E/Gest HTN, Chronic HTN, Multiple Gestation, Pre-gestational DM, Renal Disease, Systemic Lupus or APA Syndrome Yes, if 2 or more: POSITIVE FOR: Nulliparity and BMI>30; NEGATIVE FOR: Age>= 35 yrs, >10yr btwn pregnancies, ethinicty, Mother/Sister w/ Pre-E or Previous IUGR Risk for Post- Hemorrhage Initial: NEGATIVE FOR: Multiple Gestation, Previous PPH, Known Clotting Deficiency, Grand Multiparity or Anticoagulation Risks Reviewed Risks Reviewed Upon Admission: Yes
[2024-09-20] MEDS: Betamet Acet/Betamet Na Ph Inj. 30 MG/5 ML 12 MG IM (13:10)
[2024-09-20] MEDS: Penicillin G POT. 5,000,000 UNITS in Normal Saline 100 ML 200 UNITS IVPB (13:27)
[2024-09-20 13:39] LABS: HCT 32.7 % (36.0-46.0); MCH 28.9 pg (27.0-33.0); MCHC 33.6 % (32.0-36.0); MCV 86 fL (80-95); MPV 10.5 fL (8.0-11.0); Platelet Count 136 10^3/uL (130-400); RBC 3.81 10^6/uL (3.93-5.22); RDW 13.4 % (11.7-14.6); RDW-SD 41.8 fL; WBC 8.65 10^3/uL (4.4-10.8)
[2024-09-20] MEDS: MAGNESIUM SULFATE 20 GM/500 ML BAG IV_INF (13:40)
--- NOTE | 2024-09-20 13:45 | W.OBCONSULT ---
Date of service: 09/20/24 Time of Service: 13:45 Assessment and Plan Assessment and plan (1) labor in third trimester: Status: Acute Assessment and plan: Patient is noted to be 34 weeks and 1 day today. She is having irregular contractions and noted to be 3 cm per midwifery. She is category 1 heart rate tracing with irregular intermittent contractions. She will receive 1 dose of betamethasone, penicillin IV, group B strep culture is collected and pending. Baseline laboratory studies have been collected. She will receive magnesium sulfate for tocolytic and neuroprotection. The hope is that her contractions diminished, her cervix remains unchanged, and that she will be able to be transferred to a tertiary care facility for further management, and potential early delivery. If she breaks through her magnesium sulfate, has a rupture of membranes, changes her cervix, delivery would be here, via delivery. Anesthesia and OR notified. Pediatrics notified. Pending callback from [facility], Dr. Staton Qualifiers: Fetus number: single or unspecified fetus (2) 34 weeks gestation of : Status: Acute (3) Breech presentation: Status: Acute Assessment and plan: Ultrasound confirmed today. Estimated weight 2200 g, SABAS 7.6. History of Present Illness History of Present Illness Chief Complaint: contractions Narrative: Patient is a 29-year-old primigravida at 34 weeks and 1 day who called this morning to the midwives with complaints of abdominal contractions and crampiness. She was up throughout the night with intermittent abdominal pain. She presented to the hospital after having an ultrasound. She was placed on the monitor and noted to be having contractions approximately every 2 to 3 minutes palpating mild. Her ultrasound confirmed estimated weight of 2200 g with an SABAS of 7.6 and breech presentation. Per midwifery cervical examination, cervix is 3 cm. Group B strep culture had been obtained. In light of her labor status, and breech presentation, consultation with OB was warranted. She will receive betamethasone 12 mg IM now. Will start magnesium sulfate for neuroprotection and hopes of we do lengthy conversation today regarding the baby's position, labor status, and diminishing contractions. The possibility of delivery. Most optimal would be cessation of labor with transfer to a tertiary care facility. If contractions stop, cervix changes, she has spontaneous rupture of membranes, delivery here will be warranted which would be my delivery. The risk, benefits, and alternatives have been explained to the patient. She understands that in an emergent situation, general anesthesia would be preferred over spinal. Call has been placed to [facility] at 1:24 PM for maternal- medicine consultation and evaluation as to whether there is a bed available either in the unit, or the intensive care unit. The patient herself most recently denies recent illness. She did receive Tdap and RSV vaccination. She has had no fevers or chills. She denies leaking fluid. She has had no trauma. She is a non-smoker. She does not drink. She denies illicit drug use. Consults Consult date: 09/20/24 Review of Systems Narrative: Patient reports intermittent abdominal crampiness. She has no fevers or chills. She has no nausea or vomiting. All systems reviewed & are unremarkable except as noted in HPI and below Constitutional Constitutional: Reports as per HPI and Reports system reviewed and no additional complaints, except as documented ENT Ears, Nose, Mouth, and Throat: Reports system reviewed and no additional complaints, except as documented Cardiovascular Cardiovascular: Reports as per HPI and Reports system reviewed and no additional complaints, except as documented Respiratory Respiratory: Reports as per HPI and Reports system reviewed and no additional complaints, except as documented Gastrointestinal Gastrointestinal: Reports as per HPI and Reports system reviewed and no additional complaints, except as documented Genitourinary Genitourinary: Reports as per HPI and Reports pelvic pain Musculoskeletal Musculoskeletal: Reports system reviewed and no additional complaints, except as documented Integumentary/Breasts Skin/Breast: Reports system reviewed and no additional complaints, except as documented Neurologic Neurologic: Reports system reviewed and no additional complaints, except as documented PFSH All Active Problems (Updated 09/20/24 @ 13:14 by Carine Morrison) Breech presentation (Acute) 34 weeks gestation of (Acute) labor in third trimester (Acute) Uterine size date discrepancy, antepartum (Acute) Sprain of right ankle (Acute) Thrombocytopenia affecting (Acute) Second trimester bleeding (Acute) Marijuana user (Acute) (Acute) Medical History (Updated 09/20/24 @ 13:14 by Carine Morrison) Elevated glucose Nausea and vomiting during prior to 22 weeks gestation Abnormal uterine bleeding (AUB) test positive Metabolic acidosis, increased anion gap Hypomagnesemia Glucosuria Antepartum bleeding, first trimester No acute medical problems Surgical History No significant past surgical history Family History (Updated 05/15/24 @ 10:52 by Concha Adan CNM) Mother Asthma ? uses inhaler, is a smoker Diabetes Brother Anxiety Father Stroke April 2024 - clotting in his brain. Maternal Grandmother Stroke age 73 Social History (Updated 04/18/24 @ 10:39 by Concha Wilde CNM) Smoking/Tobacco Use Status: Former Tobacco Use tobacco type: e-cigarettes Quit Date: 02/27/22 Smoking risk assessment performed?: Yes Alcohol Intake: current Alcohol Intake frequency: a few times a month Drug use: Never Substance use type: does not use Adopted: No Caregiver/Support person: No Foster care: No Household members: significant other Housing: house Communication Needs: None Education Level: high school Do you need help understanding health information?: Never Pets and animals: Yes Pets and animals: cat(s) and dog(s) Sexually active: Yes Do you think of yourself as: straight/heterosexual Current gender identity: male What is your relationship status?: living with partner How often do you talk on the phone with friends or family?: once per week How often do you get together with friends or relatives?: once per week Panel score (0-1 are the most socially isolated patients): 1 What type of physical activity do you participate in: walking Duration: 30-45 minutes/day Frequency: 5-6 times per week Special elsa needs: No Agree to transfusion: Yes Seatbelt use: always Helmet use: No Drive intox 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 Date GA/Weeks # Preg Succ Route Wgt Sex Labor Lgth Anesthesia Location Prov Complic 09/29/23 6 No No Delivery Date: 09/29/23 Last Updated by: Concha Wilde CNM SAB without complication Exam Const General: cooperative, healthy appearing, comfortable and no acute distress Nutritional Appearance: average body habitus HENMT Head: normal to inspection Eyes General: appearance normal, both eyes and all related structures Resp Effort & Inspection: normal respiratory effort and no cough Cardio Rate: regular rate Rhythm: regular rhythm GI Inspection: normal to inspection Palpation: soft and no guarding Other: 3 cm per rn obgyn Skin General skin exam: no rashes or lesions noted Neuro General: patient alert, patient awake and patient oriented x3 Extrem General: normal to inspection, no clubbing, no cyanosis and no edema Results Last Vital Signs Pulse 111 H 09/20/24 12:19 BP 133/86 09/20/24 12:19 Labs 09/20/24 13:25 09/20/24 13:25 Labs: Laboratory Results - last 24 hr 09/20/24 13:25 WBC 8.65 RBC 3.81 L Hgb 11.0 L Hct 32.7 L MCV 86 MCH 28.9 MCHC 33.6 RDW 13.4 Plt Count 136 MPV 10.5 Magnesium Cancelled
[2024-09-20] MEDS: Lactated Ringers 1,000 ML 150 ML IV (13:50)
[2024-09-20 13:54] LABS: ALT 17 U/L (14-59); AST 20 U/L (15-37); Albumin 2.6 g/dL (3.4-5.0); Alkaline Phosphatase 181 U/L (46-116); Anion Gap 11.3 mmol/L (3-11); BUN 4 mg/dL (7-18); Bilirubin, Total 0.41 mg/dL (0.2-1.0); CO2 21.7 mmol/L (21.0-32.0); CREATININE 0.6 mg/dL (0.55-1.02); Chloride 104 mmol/L (98-107); Estimated GFR 123.76 (mL/min/1.73m2); Glucose 81 mg/dL (74-106); Magnesium 1.7 mg/dL (1.8-2.4); Sodium 137 mmol/L (136-145)
--- NOTE | 2024-09-20 15:00 | PGE_ITS ---
Date of service: 09/20/24 Time of Service: 15:00 Informed Consent Informed Consent: Other (Transfer to [facility]) Pelvic Exam Dilation: 3 Effacement (%): 70 station: -2 Cervix Position: posterior Consistency: medium Contractions Contraction Frequency(min): 5 Intensity: Mild/Moderate Fetus A Heart Rate Baseline: 150 Presentation: Breech Variability: Moderate (6-25 BPM) Categories: Category I Characteristics: Normal Accelerations: Present Decelerations: None Assessment and Plan Assessment and plan (1) 34 weeks gestation of : Status: Acute Assessment and plan: labor at 34 weeks and 1 day. Breech presentation. Group B strep is pending. Patient received 1 dose of betamethasone, 1 dose of penicillin, ma gnesium sulfate bolus of 4 g and is running at 2 g an hour. Knowles catheter is in situ. No cervical change lead the course of the past 3 hours. Transfer to [facility] under the care of Dr. Staton (2) labor in third trimester: Status: Acute Qualifiers: Fetus number: single or unspecified fetus (3) Breech presentation: Status: Acute Objective Abnormal lab results 09/20/24 Range/Units 13:25 RBC 3.81 L (3.93-5.22) 10^6/uL Hgb 11.0 L (11.2-15.7) g/dL Hct 32.7 L (36.0-46.0) % Anion Gap 11.3 H (3-11) mmol/L BUN 4 L (7-18) mg/dL Magnesium 1.7 L (1.8-2.4) mg/dL Alkaline Phosphatase 181 H (46-116) U/L Albumin 2.6 L (3.4-5.0) g/dL Temp Pulse Resp BP Pulse Ox 98.4 F 93 H 16 121/70 97 09/20/24 14:04 09/20/24 15:00 09/20/24 14:04 09/20/24 14:56 09/20/24 15:00 Laboratory Results WBC 8.65 10^3/uL (4.4-10.8) 09/20/24 13:25 RBC 3.81 10^6/uL (3.93-5.22) L 09/20/24 13:25 Hgb 11.0 g/dL (11.2-15.7) L 09/20/24 13:25 Hct 32.7 % (36.0-46.0) L 09/20/24 13:25 MCV 86 fL (80-95) 09/20/24 13:25 MCH 28.9 pg (27.0-33.0) 09/20/24 13:25 MCHC 33.6 % (32.0-36.0) 09/20/24 13:25 RDW 13.4 % (11.7-14.6) 09/20/24 13:25 Plt Count 136 10^3/uL (130-400) 09/20/24 13:25 MPV 10.5 fL (8.0-11.0) 09/20/24 13:25 Sodium 137 mmol/L (136-145) 09/20/24 13:25 Potassium 4.0 mmol/L (3.5-5.1) 09/20/24 13:25 Chloride 104 mmol/L (98-107) 09/20/24 13:25 Carbon Dioxide 21.7 mmol/L (21.0-32.0) 09/20/24 13:25 Anion Gap 11.3 mmol/L (3-11) H 09/20/24 13:25 BUN 4 mg/dL (7-18) L 09/20/24 13:25 Creatinine 0.6 mg/dL (0.55-1.02) 09/20/24 13:25 Est GFR (CKD-EPI 2020) 123.76 (mL/min/1.73m2) 09/20/24 13:25 Glucose 81 mg/dL (74-106) 09/20/24 13:25 Calcium 9.0 mg/dL (8.5-10.1) 09/20/24 13:25 Magnesium 1.7 mg/dL (1.8-2.4) L 09/20/24 13:25 Magnesium Cancelled 09/20/24 13:25 Total Bilirubin 0.41 mg/dL (0.2-1.0) 09/20/24 13:25 AST 20 U/L (15-37) 09/20/24 13:25 ALT 17 U/L (14-59) 09/20/24 13:25 Alkaline Phosphatase 181 U/L (46-116) H 09/20/24 13:25 Total Protein 7.0 g/dL (6.4-8.2) 09/20/24 13:25 Albumin 2.6 g/dL (3.4-5.0) L 09/20/24 13:25 ABO/Rh O Positive 09/20/24 13:25 Antibody Screen NEGATIVE 09/20/24 13:25 Subjective Interval history since last seen: Patient seen and examined. Still feeling some contractions though spaced further apart. No cervical change. Examination still 3 cm, slightly thicker cervix than previous. Results Hemoglobin/Hematocrit: Hgb 11.0 g/dL (11.2-15.7) L 09/20/24 13:25 Hct 32.7 % (36.0-46.0) L 09/20/24 13:25 Abnormal Lab Findings: Abnormal Labs 09/20/24 13:25 RBC 3.81 L Hgb 11.0 L Hct 32.7 L Anion Gap 11.3 H BUN 4 L Magnesium 1.7 L Alkaline Phosphatase 181 H Albumin 2.6 L
--- NOTE | 2024-09-20 15:05 | DSE_ITS ---
Date of service: 09/20/24 Time of Service: 15:05 DS: Diagnosis Discharge Diagnosis (1) 34 weeks gestation of : Status: Acute Asessment and Plan: labor at 34 weeks and 1 day. labor with cervical change of approximately 3 cm. Currently on magnesium sulfate for toco lysis, and neuroprotection. Betamethasone received x 1. Penicillin received x 1. Transferred to maternal- medicine and for intensive care services. All questions answered. (2) labor in third trimester: Status: Acute (3) Breech presentation: Status: Acute Discharge Plan Disposition Specific Acute Inpt Facility: [facility] Condition: Good Condition: Good Discharge Details Reason For Visit: labor, breech Admit Date/Time: 09/20/24 13:03 Admit Provider: Estrellita Wang Attending Provider: Estrellita Wang Primary Care Provider: Unknown,Unknown Hospital Course Hospital Course: Patient notified the midwifery service this morning that she was having some uterine activity and crampiness through the night last night and today. She attended her growth ultrasound confirming fetus in the breech presentation with an SABAS of 7.6. She presented to the center having irregular contractions. Cervix was noted by midwifery service to be 3 cm with a bulging bag of water. She received 1 dose of betamethasone, 1 dose of penicillin, group B strep culture performed. She received magnesium sulfate as a bolus of 4 g and is running 2 g/h. Knowles catheter is in situ. Over the course of her stay in the center, she had no significant cervical change. Maternal- medicine was notified at [facility] who has bed availability. Nursing supervisor looping was noted to arrange transfer via EMS with nurse in attendance. We will recheck her cervix shortly prior to discharge. At this point, stable for transfer Home Meds and New Rx's Prescriptions: No Action aspirin 81 mg tablet,delayed release (DR/EC) 81 mg PO DAILY calcium carbonate [Tums] 200 mg calcium (500 mg) tablet,chewable 200 mg PO BID PRN omeprazole 40 mg capsule,delayed release(DR/EC) 40 mg PO DAILY Qty: 30 5RF vitafusion multivatimin gummie 2 ea PO DAILY metoclopramide HCl [Reglan] 10 mg tablet 10 mg PO Q6H PRN (Reason: nausea and vomiting) Qty: 30 4RF OB:DS Summary Contraception Discussed Contraception Discussed: No, Status at Discharge Functional status at discharge: bed bound Overall status at discharge: patient is not back to baseline Mental Status: mental status grossly normal Speech and Movement: speech and movement normal Mood: congruent mood Affect: normal affect Quality:SDOH Health Related Social Needs: No Data to Display Exam Physical Exam Vital signs: Temp Pulse Resp BP Pulse Ox 98.4 F 98 H 16 121/70 97 09/20/24 14:04 09/20/24 15:02 09/20/24 14:04 09/20/24 14:56 09/20/24 15:00 Narrative: See previous progress note today PFSH All Active Problems (Updated 09/20/24 @ 13:14 by Carine Morrison) Breech presentation (Acute) 34 weeks gestation of (Acute) labor in third trimester (Acute) Uterine size date discrepancy, antepartum (Acute) Sprain of right ankle (Acute) Thrombocytopenia affecting (Acute) Second trimester bleeding (Acute) Marijuana user (Acute) (Acute) Medical History (Updated 09/20/24 @ 13:14 by Carine Morrison) Elevated glucose Nausea and vomiting during prior to 22 weeks gestation Abnormal uterine bleeding (AUB) test positive Metabolic acidosis, increased anion gap Hypomagnesemia Glucosuria Antepartum bleeding, first trimester No acute medical problems Surgical History No significant past surgical history Family History (Updated 05/15/24 @ 10:52 by Concha Adan CNM) Mother Asthma ? uses inhaler, is a smoker Diabetes Brother Anxiety Father Stroke April 2024 - clotting in his brain. Maternal Grandmother Stroke age 73 Social History (Updated 04/18/24 @ 10:39 by Concha Wilde CNM) Smoking/Tobacco Use Status: Former Tobacco Use tobacco type: e-cigarettes Quit Date: 02/27/22 Smoking risk assessment performed?: Yes Alcohol Intake: current Alcohol Intake frequency: a few times a month Drug use: Never Substance use type: does not use Adopted: No Caregiver/Support person: No Foster care: No Household members: significant other Housing: house Communication Needs: None Education Level: high school Do you need help understanding health information?: Never Pets and animals: Yes Pets and animals: cat(s) and dog(s) Sexually active: Yes Do you think of yourself as: straight/heterosexual Current gender identity: male What is your relationship status?: living with partner How often do you talk on the phone with friends or family?: once per week How often do you get together with friends or relatives?: once per week Panel score (0-1 are the most socially isolated patients): 1 What type of physical activity do you participate in: walking Duration: 30-45 minutes/day Frequency: 5-6 times per week Special elsa needs: No Agree to transfusion: Yes Seatbelt use: always Helmet use: No Drive intox 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 Date GA/Weeks # Preg Succ Route Wgt Sex Labor Lgth Anesth esia Location [facility] 09/29/23 6 No No Delivery Date: 09/29/23 Last Updated by: Concha Wilde CNM SAB without complication DS: Data Vitals/I&O Vitals and I&O: Vital Signs Temperature 98.4 F 09/20/24 14:04 Pulse 98 H 09/20/24 15:02 Pulse Rhythm Regular 09/20/24 14:04 Respiratory Rate 16 09/20/24 14:04 Blood Pressure 121/70 09/20/24 14:56 Pulse Oximetry 97 09/20/24 15:00 Oxygen Delivery Method Room Air 09/20/24 14:04 Oxygen Flow Rate 0 09/20/24 14:04 Pain Level 8 09/20/24 14:04 Intake & Output 09/19/24 09/20/24 09/20/24 23:59 11:59 23:59 Weight 205 lb Other: Urine Color Yellow Data Completed and Pending Labs on day of discharge: Labs from last 24 hours 09/20/24 09/20/24 09/20/24 14:45 13:25 13:25 WBC 8.65 RBC 3.81 L Hgb 11.0 L Hct 32.7 L MCV 86 MCH 28.9 MCHC 33.6 RDW 13.4 Plt Count 136 MPV 10.5 Sodium 137 Potassium 4.0 Chloride 104 Carbon Dioxide 21.7 Anion Gap 11.3 H BUN 4 L Creatinine 0.6 Est GFR (CKD-EPI 2020) 123.76 Glucose 81 Calcium 9.0 Magnesium Cancelled 1.7 L Total Bilirubin 0.41 AST 20 ALT 17 Alkaline Phosphatase 181 H Total Protein 7.0 Albumin 2.6 L Urine Color Pending Urine Clarity Pending Urine pH Pending Ur Specific [place] Pending Urine Protein Pending Urine Ketones Pending Urine Blood Pending Urine Nitrite Pending Urine Bilirubin Pending Urine Urobilinogen Pending Ur Leukocyte Esterase Pending Urine Glucose Pending Urine Opiates Screen Pending Ur Buprenorphine Ur Norbuprenorphine Urine Fentanyl Screen Pending Ur Barbiturates Screen Pending Ur Tricyclics Screen Pending Ur Amphetamines Screen Pending U Benzodiazepines Scrn Pending Urine Cocaine Screen Pending Ur THC Screen Pending ABO/Rh O Positive Antibody Screen NEGATIVE 09/20/24 12:52 WBC RBC Hgb Hct MCV MCH MCHC RDW Plt Count MPV Sodium Potassium Chloride Carbon Dioxide Anion Gap BUN Creatinine Est GFR (CKD-EPI 2020) Glucose Calcium Magnesium Total Bilirubin AST ALT Alkaline Phosphatase Total Protein Albumin Urine Color Urine Clarity Urine pH Ur Specific [place] Urine Protein Urine Ketones Urine Blood Urine Nitrite Urine Bilirubin Urine Urobilinogen Ur Leukocyte Esterase Urine Glucose Urine Opiates Screen Ur Buprenorphine Pending Ur Norbuprenorphine Pending Urine Fentanyl Screen Ur Barbiturates Screen Ur Tricyclics Screen Ur Amphetamines Screen U Benzodiazepines Scrn Urine Cocaine Screen Ur THC Screen ABO/Rh Antibody Screen 09/20/24 13:20 Urine - Clean Catch Urine Culture - Pending 09/20/24 13:00 Vaginal/Rectal Group B Streptococcus Culture - Pending Preliminary micro results at discharge 09/20/24 13:20 Urine Culture - Pending Urine - Clean Catch 09/20/24 13:00 Group B Streptococcus Culture - Pending Vaginal/Rectal
[2024-09-20 15:15] LABS: Bilirubin Negative (Negative); Blood Trace-lysed (Negative); Clarity Clear (Clear); Glucose Negative (Negative); Ketones 80 mg/dL (Negative); Leukocyte Esterase Negative (Negative); Nitrite Negative (Negative); Specific Gravity >= 1.030 (1.005-1.025)
[2024-09-20 15:26] LABS: *AMPHETAMINES SCREEN URINE Negative (Negative); *BARBITURATES SCREEN URINE Negative (Negative); *BENZODIAZEPINES SCREEN URINE Negative (Negative); Cannabinoids THC Negative (Negative); Cocaine Screen,Urine Negative (Negative); METHADONE URINE SCREEN Negative (Negative); OPIATES URINE SCREEN Negative (Negative)
[2024-09-20 15:28] LABS: Tricyclic Antidepressants Negative (Negative)
[2024-09-20 15:54] LABS: Epithelial Cells Moderate HPF (Negative); RBC 0-2 HPF (0-2); WBC Negative HPF (0-5)
[2024-09-20 15:55] LABS: Bacteria Few HPF (Negative); C & S Indicated? C&S Done As Ordered; Casts 0-2 Hyaline LPF (Negative); Crystals Negative HPF (Negative); Mucus Trace (Negative)
[2024-09-21 11:45] LABS: Fentanyl Scr w/Rfx Confirm Negative ng/mL (<1)
[2024-09-26 09:06] LABS: Buprenorphine Negative ng/mL (Cutoff: 5.0); Norbuprenorphine Negative ng/mL (Cutoff: 2.5)
== END 2024-09-20 15:45 | disposition short-term general hospital (02) | DRG 832 ==
LOC: BCD 13:09 → OBS 13:09
PROVIDERS: Advanced Practice Midwife; Admitting Provider Obstetrics & Gynecology; Visit Provider Obstetrics & Gynecology
DX: O60.03 Preterm labor without delivery, third trimester (principal); O99.113 Other diseases of the blood and blood-forming organs and certain disorders involving the immune mechanism complicating pregnancy, third trimester; O99.323 Drug use complicating pregnancy, third trimester; Z3A.34 34 weeks gestation of pregnancy; O32.1XX0 Maternal care for breech presentation, not applicable or unspecified; D69.6 Thrombocytopenia, unspecified; F12.90 Cannabis use, unspecified, uncomplicated; O99.013 Anemia complicating pregnancy, third trimester; D64.9 Anemia, unspecified
CPT/HCPCS: 80053; 80307; 80348; 85027; 86850; 86900; 86901; 59025; 81003; 81015; 83735; 87081; 87086; G0378; J0702; J2540; J3475

== ENCOUNTER 2024-12-10 08:53 | Emergency (ER) | payer OTHER, SELFPAY ==
[2024-12-10 08:56] VITALS: BP 118/82; PULSE 113; RESP 16; TEMP 36.7; O2SAT 99
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
[2024-12-10] MEDS: Acetaminophen 500 MG TAB 1000 MG PO (09:34)
[2024-12-10] MEDS: Ibuprofen 600 MG TAB PO (09:35)
[2024-12-10] MEDS: Lidocaine 5% Patch 1 PATCH TP (09:35)
== END 2024-12-10 10:05 | disposition home or self-care (01) ==
PROVIDERS: Emergency Provider Physician Assistant
DX: S39.012A Strain of muscle, fascia and tendon of lower back, initial encounter (principal); X50.0XXA Overexertion from strenuous movement or load, initial encounter
CPT/HCPCS: 99283